=== PATIENT | female | born 1955 | race Caucasian/White ===

== ENCOUNTER 2019-12-06 10:22 | Emergency (ER) | payer MEDICARE, OTHER, SELFPAY ==
--- NOTE | ~2019-12-06 | US_ITS ---
US right upper quadrant INDICATION: Abdominal pain. PROCEDURE: Realtime right upper abdominal ultrasound. COMPARISON: CT dated 12/06/2019 FINDINGS: The pancreas is normal without focal mass or pancreatic ductal dilation. Liver echotexture is normal without focal mass or intrahepatic biliary dilatation. There is normal directional flow i n the portal vein. There is gallbladder sludge. No gallbladder wall thickening or stones. Common bile duct measures 4 m m. No sonographic Valdez's sign. IMPRESSION: 1: Gallbladder sludge. Reviewed, dictated and finalized at location A. IMPRESSION: 1: Gallbladder sludge.
--- NOTE | ~2019-12-06 | CT_ITS ---
EXAMINATION: CT abdomen pelvis wo con DATE: 12/06/2019 11:50 INDICATION: Right flank and mid abdominal pain TECHNIQUE: Computed tomography (CT) of the abdomen and pelvis was performed without intravenous contr ast. Automated exposure control and iterative reconstruction technique were employed. The dose-length product was 405.16 mGy-cm. COMPARISON: CT studies dated 12/30/2007 and 07/20/2006 FINDINGS: Mild bibasilar atelectasis. Heart size is normal. Atherosclerotic coronary artery Calcination. No per icardial or pleural effusion. Subcentimeter low-attenuation lesion in segment 7 of the liver most lik mandi a cyst or hemangioma. Gradient of increased attenuation in the dependent aspect of the otherwise normal-appearing gallbladder, most likely layering sludge or gallstones. No pericholecystic inflammat ory change to suggest acute cholecystitis. No intra or extra hepatic ductal or ductal dilation. Splee n and few small splenules, pancreas and bilateral adrenal glands are normal. There is calcified ather osclerosis of the aorta and many of the other arteries including arteries at the bilateral renal jose . Kidneys are otherwise unremarkable with no hydronephrosis. Bladder is normal. The uterus is not don ntified and has likely been surgically resected. No abnormal bowel wall thickening or obstruction. Th e appendix is not visualized. No pericecal inflammatory change to suggest acute appendicitis. No free intraperitoneal gas or fluid. No pathologically enlarged abdominal or pelvic lymphadenopathy. Mild r ight and mild to moderate left hip osteoarthritis. IMPRESSION: 1. No acute intra-abdominal/pelvic process. 2. Sludge versus gallstones in the dependent aspect of the otherwise normal gallbladder. No intra or extra hepatic ductal or ductal dilation. Reviewed, dictated and finalized at location A. IMPRESSION: 1. No acute intra-abdominal/pelvic process. 2. Sludge versus gallstones in the dependent aspect of the otherwise normal gal lbladder. No intra or extra hepatic ductal or ductal dilation.
[2019-12-06 10:34] VITALS: BP 166/51; PULSE 97; RESP 16; TEMP 36.6; O2SAT 99
[2019-12-06 10:53] LABS: Basophils Percent Auto 0.3 % (0.2-1.2); Eosinophils Absolute Auto 0.1 K/mm3 (0-0.3); Eosinophils Percent Auto 0.5 % (0-4.4); Hematocrit 43.1 % (37.0-47.0); Hemoglobin 14.4 g/dL (12.0-15.0); Immature Granulocyte Absolute 0.02 K/mm3 (0.00-0.031); Immature Granulocyte Percent A 0.2 % (0-0.5); Lymphocytes Absolute Auto 2.19 K/mm3 (0.9-3.2); Lymphocytes Percent Auto 21.3 % (18.3-44.2); Mean Corpuscular HGB Conc 33.4 g/dl (32-36); Mean Corpuscular Hemoglobin 29.6 pg (26-34); Mean Corpuscular Volume 88.5 fl (80-100); Monocytes Percent Auto 9.4 % (2.6-8.5); Neutrophils Percent Auto 68.3 % (45.5-73.1); Platelet Count Result 339 k/mm3 (150-375); Red Blood Count 4.87 M/mm3 (4.2-5.4); Red Cell Distribution Width 12.8 % (11.5-14.5); White Blood Count 10.3 K/mm3 (4.5-10.0)
[2019-12-06 10:55] LABS: Add Urine Microscopic? NO; Appearance Urine Clear (Clear); Bilirubin Urine Negative (Negative); Blood Urine Negative (Negative); Color Urine Colorless (Yellow); Glucose Urine UA Negative (Negative); Ketones Urine Negative (Negative); Leukocyte Esterase Ur Negative LEU/UL (Negative); Nitrate Urine Negative (Negative); Protein Urine Negative (Negative); Specific Grav Ur 1.005 (1.001-1.035); Urobilinogen Urine Negative mg/dL (<2.0)
[2019-12-06 11:09] LABS: Alanine Aminotransferase 35 U/L (4-35); Albumin Level 5.1 g/dL (3.5-5.1); Alkaline Phosphatase 81 U/L (38-126); Aspartate Amino Transferase 47 U/L (14-36); Bilirubin,Total 0.5 mg/dL (0.2-1.3); Blood Urea Nitrogen 12 mg/dL (7-17); Calcium 10.4 mg/dL (8.4-10.2); Carbon Dioxide 30 mmol/L (22-30); Chloride 99 mmol/L (98-107); Estimated Glomerular Filt Rate > 60; Glucose 170 mg/dL (65-105); Lipase 51 U/L (23-300); Potassium 3.8 mmol/L (3.4-5.0); Sodium 135 mmol/L (137-145)
--- NOTE | 2019-12-06 11:34 | ED.GENADULT ---
HPI - General Adult General Chief complaint: Abdominal Pain Stated complaint: right flank pain/abd bloating Time Seen by Provider: 12/06/19 10:29 History of Present Illness HPI narrative: Patient is a 64-year-old female who presents with 2 separate complaints. First complaint is right-sided abdominal pain that is bloating in nature ongoing over the last week. Intermittent. Worse when she eats. No nausea/vomiting/fever/chills. She has since developed some discomfort in her right low back. Worse with twisting and bending. No known trauma. Back pain improved with [id number] pain relievers. Related Data Home Medications Medication Instructions Recorded Confirmed Saccharomyces boulardii 250 mg 250 mg PO BID 09/18/19 capsule amlodipine 2.5 mg tablet 2.5 mg PO .unknown tablet 09/18/19 insulin pump controller #1 each 09/18/19 lisinopril 20 mg tablet 20 mg PO DAILY 09/18/19 magnesium 30 mg tablet 30 mg PO .unknown tablet 09/18/19 multivitamin 1 tablet PO .unknown tablet 09/18/19 pravastatin 10 mg tablet 10 mg PO .unknown tablet 09/18/19 Allergies Allergy/AdvReac Type Severity Reaction Status Date / Time No Known Allergies Allergy Verified 12/06/19 10:40 Review of Systems Review of Systems: All systems reviewed & are unremarkable except as noted in HPI and below Constitutional: Constitutional: Denies chills, Denies fever(s) and Denies weakness ENT: Denies nasal congestion and Denies sore throat Gastrointestinal: Gastrointestinal: Reports abdominal pain, Reports bloating, Denies constipation, Denies diarrhea, Denies nausea and Denies vomiting Genitourinary: Genitourinary: Denies hematuria, Denies nocturia and Denies dysuria Musculoskeletal: Musculoskeletal: Reports back pain and Denies muscle cramps Neurologic: Denies focal weakness and Denies numbness PMF Past Medical History Medical History (Updated 12/06/19 @ 13:39 by Jacob Brady MD) Arthritis Bleeding nose Chills Dizziness High blood pressure Left ankle pain Vertigo Surgical History Surgical History (Updated 12/06/19 @ 12:16 by Jacob Brady MD) History of appendectomy Social History Social History Smoking status: Never smoker Alcohol intake: current Exam Narrative: Exam Narrative: GENERAL: Well-appearing, well-nourished, and in no acute distress. HEAD: Normocephalic, atraumatic. ENT: Mucous membranes moist. CHEST: Clear to auscultation. No respiratory distress. HEART: Regular rate and rhythm. Normal peripheral pulses. ABDOMEN: Soft, nontender, nondistended. Back: No midline tenderness of thoracic or lumbar spine. Mild right paraspinal lumbar muscular tenderness without palpable spasm, mild right CVA tenderness. EXTREMITIES: Normal range of motion. No edema. NEURO: Alert and oriented x3. PSYCH: Normal mood and affect. Course Course Emergency Course: Patient informed of results. Suspect symptoms are related to musculoskeletal back pain but also to gallbladder sludge. Will give referral to general surgery and recommend low-fat diet. Vital Signs Vital signs: Vital Signs Temperature 97.9 F 12/06/19 10:34 Pulse Rate 97 12/06/19 10:34 Respiratory Rate 16 12/06/19 10:34 Blood Pressure 166/51 H 12/06/19 10:34 Pulse Oximetry 99 12/06/19 10:34 Temperature 97.9 F 12/06/19 10:34 Pulse Rate 84 12/06/19 12:39 Respiratory Rate 17 12/06/19 12:39 Blood Pressure 143/59 H 12/06/19 12:39 Pulse Oximetry 100 12/06/19 12:39 Medical Decision Making Vital Signs Vital Signs: Vital Signs Temperature 97.9 F 12/06/19 10:34 Pulse Rate 97 12/06/19 10:34 Respiratory Rate 16 12/06/19 10:34 Blood Pressure 166/51 H 12/06/19 10:34 Pulse Oximetry 99 12/06/19 10:34 Temperature 97.9 F 12/06/19 10:34 Pulse Rate 84 12/06/19 12:39 Respiratory Rate 17 12/06/19 12:39 Blood Pressure 143/59 H 12/06/19 12:39 Pul
[2019-12-06 12:39] VITALS: BP 143/59; PULSE 84; RESP 17; O2SAT 100
== END 2019-12-06 14:06 | disposition home or self-care (01) ==
PROVIDERS: Emergency Provider Emergency Medicine; PCP Internal Medicine
DX: K82.8 Other specified diseases of gallbladder (principal); M19.90 Unspecified osteoarthritis, unspecified site; I10 Essential (primary) hypertension; M54.5 Low back pain
CPT/HCPCS: 36415; 74176; 76705; 80053; 81003; 83690; 85025; 99284

== ENCOUNTER 2019-12-09 16:53 | Emergency (ER) | payer MEDICARE, OTHER, SELFPAY ==
--- NOTE | ~2019-12-09 | CT_ITS ---
EXAMINATION: CT abdomen pelvis w con EXAM DATE: 12/09/2019 18:29 INDICATION: Right flank pain. TECHNIQUE: Spiral CT of the abdomen and pelvis was performed following intravenous injection of 100 m L Omnipaque 350. Axial, coronal and sagittal images were reviewed. The dose-length product (DLP) fo r this examination was 398.23 mGy-cm. The exposure was tailored according to patient size (auto mA e xposure control), and iterative reconstruction (ASIR) was used as additional dose reduction technique . Comparison is made to prior examination from 12/06/2019. FINDINGS: The liver, spleen, adrenal glands and pancreas are unremarkable. Gallbladder is unremarkab le. No biliary obstruction. Portal and splenic veins are patent. Kidneys enhance symmetrically. T here is no hydronephrosis. Equivocal mild enhancement of the right ureteral urothelium, possible uppe r urinary tract infection. The uterus is not identified and has likely been surgically resected. Th e bladder is distended. There is no retroperitoneal or pelvic lymphadenopathy. Tiny umbilical fat- containing hernia. The appendix is not positively visualized. There is no pericecal inflammatory change to suggest appe ndicitis. The stomach and small bowel are unremarkable. There is expected amount of colonic stool. No free intraperitoneal gas. The heart is normal in size. There are no pericardial or pleural e ffusions. The lung bases are unremarkable. The bones are unremarkable. IMPRESSION: 1. Possible right-sided upper urinary tract infection without evidence of pyelonephritis. Correlate with urinalysis. 2. No other suspicious findings. Reviewed, dictated and finalized at location A. IMPRESSION: 1. Possible right-sided upper urinary tract infection without evidence of pyel onephritis. Correlate with urinalysis. 2. No other suspicious findings.
[2019-12-09 16:56] VITALS: BP 171/69; PULSE 105; RESP 18; TEMP 36.8; O2SAT 100
[2019-12-09 17:06] VITALS: TEMP 37
[2019-12-09 17:24] LABS: Basophils Percent Auto 0.2 % (0.2-1.2); Eosinophils Absolute Auto 0.1 K/mm3 (0-0.3); Eosinophils Percent Auto 0.4 % (0-4.4); Hematocrit 38.7 % (37.0-47.0); Hemoglobin 13.1 g/dL (12.0-15.0); Immature Granulocyte Absolute 0.06 K/mm3 (0.00-0.031); Immature Granulocyte Percent A 0.4 % (0-0.5); Lymphocytes Absolute Auto 2.29 K/mm3 (0.9-3.2); Mean Corpuscular HGB Conc 33.9 g/dl (32-36); Mean Corpuscular Hemoglobin 29.5 pg (26-34); Mean Corpuscular Volume 87.2 fl (80-100); Mean Platelet Volume 9.1 fl (7.4-10.4); Monocytes Absolute Auto 1.4 K/mm3 (0.1-0.6); Monocytes Percent Auto 9.5 % (2.6-8.5); Neutrophils Absolute Auto 10.5 K/mm3 (1.3-6.7); Neutrophils Percent Auto 73.5 % (45.5-73.1); Platelet Count Result 329 k/mm3 (150-375); Red Blood Count 4.44 M/mm3 (4.2-5.4); Red Cell Distribution Width 12.3 % (11.5-14.5); White Blood Count 14.3 K/mm3 (4.5-10.0)
[2019-12-09] MEDS: SODIUM CHLORIDE 0.9% IV 1,000 ML 999 ML IV CONT (17:26)
--- NOTE | 2019-12-09 17:31 | ED.ABDPAIN ---
HPI - Abdominal Pain General Chief Complaint: Back Pain/Injury Stated Complaint: back pain Time Seen by Provider: 12/09/19 17:05 History of Present Illness HPI narrative: Patient presents with her for right flank pain. She was seen here earlier this week and had a CAT scan and ultrasound which demonstrated sludge in the gallbladder. She has set up an appointment with Dr. Burton the general surgeon for December 20. Her PCP Dr. Tinoco said to come back to the ER, for repeat evaluation. Her pain is 8 out of 10. She denies nausea or vomiting. She has been having more frequent stools of smaller caliber. She has had chills, but no fever. She works today at the [employer]. She said she does not like pain meds and the most she would take would be in ibuprofen. I told her to stay n.p.o. until we get the results of the CAT scan, in case she needs surgery. MD elicited complaint: flank pain Pertinent past history: constipation Onset (ago): day(s) Pain Consistency: constant Location: RUQ Radiation: R flank Exacerbating factors: movement Relieving factors: rest Related Data Patient : No Home Medications Medication Instructions Recorded Confirmed Saccharomyces boulardii 250 mg 250 mg PO BID 09/18/19 capsule insulin pump controller #1 each 09/18/19 pravastatin 10 mg tablet 10 mg PO .unknown tablet 09/18/19 amlodipine 10 DAILY 12/09/19 cholecalciferol (vitamin D3) 50 mcg PO DAILY 12/09/19 [Vitamin D3] fexofenadine [Aretha Allergy] 180 mg PO DAILY 12/09/19 12/09/19 insulin aspart U-100 [Novolog 1 sliding scale dose SUBCUT 12/09/19 PenFill U-100 Insulin] USEASDIRECTD lisinopril-hydrochlorothiazide 1 tablet PO DAILY 12/09/19 magnesium oxide 400 mg PO DAILY 12/09/19 Allergies Allergy/AdvReac Type Severity Reaction Status Date / Time No Known Allergies Allergy Verified 12/09/19 17:13 Review of Systems Review of Systems: Narrative: CONSTITUTIONAL: Denies fever, chills, or sweats. EYES: Denies visual changes, redness, or discharge. ENT: Denies rhinorrhea, congestion, sore throat, or otalgia. CARDIOVASCULAR: Denies chest pain, palpitations, or edema. RESPIRATORY: Denies cough or dyspnea. GASTROINTESTINAL: Denies nausea, vomiting, or diarrhea. GENITOURINARY: Denies dysuria or hematuria. SKIN: Denies rash or itching. MUSCULOSKELETAL: Denies back pain, joint pain, or myalgia. NEUROLOGIC: Denies headache, numbness, or weakness. PSYCHIATRIC: Denies anxiety or depression. [facility] Past Medical History Medical History Arthritis Bleeding nose Chills Dizziness High blood pressure Left ankle pain Vertigo Surgical History Surgical History History of appendectomy History of X2 History of hysterectomy total 2002 History of trigger finger Family History Family History (Updated 12/07/19 @ 13:21 by Angela Maddox) Sibling Diabetes mellitus Family history of kidney disease Mother Family history of osteoporosis Family history of mental disorder Family history of cardiovascular disease Family history of coronary artery disease Family history of congestive heart failure Family history of hearing loss Father Family history of cardiovascular disease Cerebrovascular accident Family history of chronic obstructive pulmonary disease Diabetes mellitus Emphysema lung Other Hypertension Social History Social History Smoking status: Never smoker Alcohol intake: current Additional occupation/education comments: Banker Gender identity (if verbalized by the patient): Female Exam Narrative: Exam Narrative: GENERAL: Well-appearing, well-nourished, and in no acute distress. HEAD: Normocephalic, atraumatic. EYES: PERRLA and EOMI. ENT: Nares clear, no rhinorrhea or epistaxis. Mucous membranes moist. NECK: Supple. CHEST: Clear
[2019-12-09 17:35] LABS: Alanine Aminotransferase 28 U/L (4-35); Albumin Level 4.8 g/dL (3.5-5.1); Alkaline Phosphatase 86 U/L (38-126); Aspartate Amino Transferase 41 U/L (14-36); Bilirubin,Total 0.4 mg/dL (0.2-1.3); Blood Urea Nitrogen 14 mg/dL (7-17); Calcium 9.5 mg/dL (8.4-10.2); Carbon Dioxide 28 mmol/L (22-30); Chloride 95 mmol/L (98-107); Estimated CRCL calculation 83 ml/min; Estimated Glomerular Filt Rate > 60; Glucose 226 mg/dL (65-105); Lipase 62 U/L (23-300); Potassium 3.8 mmol/L (3.4-5.0); Sodium 131 mmol/L (137-145)
[2019-12-09 17:36] LABS: Add Urine Microscopic? YES; Appearance Urine Clear (Clear); Bilirubin Urine Negative (Negative); Blood Urine Negative (Negative); Color Urine Colorless (Yellow); Glucose Urine UA 2+ mg/dL (Negative); Ketones Urine Negative (Negative); Leukocyte Esterase Ur Negative LEU/UL (Negative); Nitrate Urine Negative (Negative); Protein Urine Negative (Negative); RBC Urine 0-2 /hpf (0-2); Specific Grav Ur 1.005 (1.001-1.035); Urobilinogen Urine Negative mg/dL (<2.0); WBC Urine 0-3 /hpf
[2019-12-09 19:43] VITALS: BP 130/85; PULSE 80; RESP 19; TEMP 37.2; O2SAT 100
== END 2019-12-09 19:44 | disposition home or self-care (01) ==
PROVIDERS: Emergency Provider Emergency Medicine; PCP Internal Medicine
DX: R10.11 Right upper quadrant pain (principal); E87.0 Hyperosmolality and hypernatremia; R73.9 Hyperglycemia, unspecified; M19.90 Unspecified osteoarthritis, unspecified site; I10 Essential (primary) hypertension; Z79.4 Long term (current) use of insulin
CPT/HCPCS: 36415; 74177; 80053; 81001; 83690; 85025; 96361; 96374; 99284; J0131; J7030; Q9967

== ENCOUNTER 2019-12-28 08:43 | Outpatient (CLI) | payer MEDICARE, OTHER, SELFPAY ==
--- NOTE | ~2019-12-28 | NM_ITS ---
EXAMINATION: NM hepatobiliary w pharm DATE: 12/28/2019 10:44 INDICATION: Abnormal findings on diagnostic imaging of liver and bile ducts. COMPARISON: Ultrasound 12/06/2019 TECHNIQUE: 5 mCi Tc-99m mebrofenin (Choletec) was administered intravenously. Scintigraphic images o f the abdomen were obtained for one hour. Then, 1.4 mcg sincalide (Kinevac) IV was administered, and imaging was continued for 30 minutes. FINDINGS: There is normal clearance of radiotracer from the blood pool. There is homogeneous tracer u ptake by the liver. Activity progresses to the bowel and gallbladder. Gallbladder ejection fraction (GBEF) was <10%. Note that most patients with gallbladder dysfunction have GBEF < 35%, which overlaps with the broad normal range of 10-90%. IMPRESSION: 1. Low gallbladder ejection fraction, consistent with gallbladder dysfunction and/or chronic cholecy stitis. Reviewed, dictated and finalized at location A. IMPRESSION: 1. Low gallbladder ejection fraction, consistent with gallbladder dysfunction and/or chronic cholecystitis.
== END 2019-12-28 08:44 | disposition home or self-care (01) ==
PROVIDERS: PCP Internal Medicine; Visit Provider Surgery
DX: M54.9 Dorsalgia, unspecified (principal); R14.0 Abdominal distension (gaseous); R93.2 Abnormal findings on diagnostic imaging of liver and biliary tract
CPT/HCPCS: 78227; A9537; J2805

== ENCOUNTER 2020-01-29 00:03 | Outpatient (CLI) | payer MEDICARE, OTHER, SELFPAY ==
[2020-01-29 18:54] LABS: SARS-CoV-2 RNA PCR Negative
== END 2020-01-29 00:04 | disposition home or self-care (01) ==
LOC: ANHCOVIDDT 00:03
PROVIDERS: PCP Internal Medicine; Visit Provider Surgery
DX: Z01.812 Encounter for preprocedural laboratory examination (principal); Z11.59 Encounter for screening for other viral diseases
CPT/HCPCS: 87635; C9803; U0003

== ENCOUNTER 2020-01-29 10:47 | Outpatient (CLI) | payer MEDICARE, OTHER, SELFPAY ==
--- NOTE | 2020-01-29 10:50 | ECG_ITS ---
Measurements Intervals [place] Rate: 63 P: 62 [place]: 166 QRS: 57 QRSD: 81 T: 60 QT: 378 QTc: 387 Interpretive Statements SINUS RHYTHM DELAYED PRECORDIAL R/S TRANSITION BASELINE ARTIFACT- I, II, III, AVR, AVL, AVF BORDERLINE ECG Electronically Signed On 01-29-2020 11:21:32 CDT by Jose Coulter D.O.
[2020-01-29 12:00] LABS: Blood Urea Nitrogen 16 mg/dL (7-17); Calcium 9.6 mg/dL (8.4-10.2); Carbon Dioxide 28 mmol/L (22-30); Chloride 99 mmol/L (98-107); Estimated Glomerular Filt Rate > 60; Glucose 105 mg/dL (65-105); Potassium 3.6 mmol/L (3.4-5.0); Sodium 134 mmol/L (137-145)
[2020-01-29 12:02] LABS: Alanine Aminotransferase 21 U/L (4-35); Albumin Level 4.8 g/dL (3.5-5.1); Alkaline Phosphatase 76 U/L (38-126); Amylase 87 U/L (30-110); Aspartate Amino Transferase 37 U/L (14-36); Bilirubin,Total 0.3 mg/dL (0.2-1.3); Lipase 48 U/L (23-300)
== END 2020-01-29 10:48 | disposition home or self-care (01) ==
PROVIDERS: Anesthesiology; PCP Internal Medicine; Visit Provider Surgery
DX: Z01.818 Encounter for other preprocedural examination (principal); K81.1 Chronic cholecystitis; E10.9 Type 1 diabetes mellitus without complications; I10 Essential (primary) hypertension
CPT/HCPCS: 36415; 80048; 80076; 82150; 83690; 86850; 86900; 86901; 87635; 93005; C9803; U0003

== ENCOUNTER 2020-01-31 02:04 | Day surgery (SDC) | payer MEDICARE, OTHER, SELFPAY ==
[2020-01-25 12:37] VITALS: BMI 26.1
--- NOTE | 2020-01-30 14:06 | WPDANESEPPF ---
Anes - Initial Pre Proc Eval Procedure: Operation Date: 01/31/20 10:30 Proposed Procedures p Laparoscopic Cholecystectomy - Trey Burton MD Date/Time: 01/30/20 14:06 Surgeon: Trey Burton MD Pre Op Diagnosis: Chronic cholecystitis Patient Data Age: 64 Gender: F Height: 1.59 m Weight: 65.77 kg Allergies Allergy/AdvReac Type Severity Reaction Status Date / Time No Known Allergies Allergy Verified 01/25/20 12:13 Home Medications Medication Instructions Recorded Confirmed Type Saccharomyces boulardii 250 mg 250 mg PO DAILY 09/18/19 01/25/20 History capsule insulin pump controller #1 each 09/18/19 01/01/20 History pravastatin 10 mg tablet 10 mg PO DAILY tablet 09/18/19 01/25/20 History amlodipine 10 mg PO DAILY 12/09/19 01/25/20 History cholecalciferol (vitamin D3) 50 mcg PO DAILY 12/09/19 01/25/20 History [Vitamin D3] fexofenadine [Aretha Allergy] 180 mg PO DAILY 12/09/19 01/25/20 History insulin aspart U-100 [Novolog 1 sliding scale dose SUBCUT 12/09/19 01/25/20 History PenFill U-100 Insulin] USEASDIRECTD lisinopril-hydrochlorothiazide 1 tablet PO DAILY 12/09/19 01/25/20 History magnesium oxide 400 mg PO DAILY 12/09/19 01/25/20 History orphenadrine citrate 100 mg PO Q12H #10 tablet 12/09/19 01/25/20 Rx insulin pump controller 01/25/20 01/25/20 History hydrocodone-acetaminophen 1 - 2 tablet PO Q6H PRN #7 tablet 01/31/20 Rx ibuprofen 600 mg PO Q6H PRN #14 tablet 01/31/20 Rx ECG: Date of Service: 01/29/20 Procedure(s): CA 12 lead EKG Accession Number(s): [id number] cc: ~ Measurements Intervals [place] Rate: 63 P: 62 [place]: 166 QRS: 57 QRSD: 81 T: 60 QT: 378 QTc: 387 Interpretive Statements SINUS RHYTHM DELAYED PRECORDIAL R/S TRANSITION BASELINE ARTIFACT- I, II, III, AVR, AVL, AVF BORDERLINE ECG Electronically Signed On 01-29-2020 11:21:32 CDT by Jose Coulter D.O. Dictated By: Jose Coulter DO 01/29/20 1128 Patient hx anesthesia problems: none Family hx anesthesia problems: none [facility] Past Medical History Medical History (Updated 01/30/20 @ 14:07 by Ricky Fermin MD) Arthritis Back pain Bleeding nose Chills Dizziness DM type 1 (diabetes mellitus, type 1) High blood pressure Hypercholesterolemia Left ankle pain Vertigo Surgical History Surgical History History of appendectomy History of X2 History of hysterectomy total 2002 History of trigger finger Social History Social History Smoking status: Never smoker Alcohol intake: current Additional occupation/education comments: Banker Gender identity (if verbalized by the patient): Female Anes - Eval Final PreProcedure Day of Procedure 01/30/20 14:06 Patient weight: overweight Heart: regular rate and rhythm Lungs: clear to auscultation and normal air movement Airway: Mallampati scale class II Neurological: alert and oriented Last oral intake: >/= 8 hours ASA classification: III Emergent: no Anesthetic plan: proceed Anesthesia type and monitoring: general ETT Informed Consent: The patient's anesthetic plan and its attendant risks and benefits were discussed with the patient/family/POA. Questions were solicited and answers provided to the satisfaction of the patient/family/POA.
[2020-01-31] VITALS (9 sets, daily range): BP systolic 120–149; BP diastolic 48–66; PULSE 61–87; RESP 12–16; TEMP 36.6; O2SAT 95–98
--- NOTE | 2020-01-31 08:31 | WPDHPUPDATE1 ---
History and Physical Update Update Date/Time: 01/31/20 08:31 History and Physical has been reviewed, including an updated exam of the patient. There are NO changes in the patient's condition. Risks, benefits, and alternatives have been discussed and questions answered. Patient agrees to proceed with procedure.
--- NOTE | 2020-01-31 08:57 | P.OP_ITS ---
Procedure Note - Detailed Date of procedure: 01/31/20 Pre-op diagnosis: Chronic cholecystitis Chronic cholecystitis Post-op diagnosis: same Procedure performed: Laparoscopic cholecystectomy Description of procedure: The patient was taken to surgery and induced into general anesthesia. The abdomen was prepped and draped. Trocars were placed in the usual fashion using 0.5% Marcaine with epinephrine and applied Medical optical trocars. A 5 millimeter camera was used. The gallbladder was decompressed with a laparoscopic aspirator. The cholecystotomy was closed with a Vicryl endo-loop. The gallbladder was retracted anterosuperiorly. Traction was placed on the infundibulum. The cystic duct and cystic artery were dissected out very clearly. The gallbladder was dissected off the liver at its lower 3rd. Critical view was achieved. We securely clipped and divided the cystic duct and cystic artery. The gallbladder was then further retracted so that the peritoneal attachments to the liver could be divided. Once the gallbladder was freed entirely, it was placed in an Endo-Catch bag and retrieved through the 10 11 epigastric trocar site. The epigastric trocar was then replaced. We reviewed the right upper quadrant. It was irrigated and suctioned. All looked good with no evidence of bleeding or bile leakage. We evacuated CO2 and removed the trocar sleeves. Skin wounds were closed with subcuticular 4 O Monocryl skin suture. The wounds were dressed with Exofin surgical adhesive. Patient was awakened and taken to recovery in good condition. Sponge and needle counts were correct x2. Anesthesia: GETA and local (0.5% Marcaine with epinephrine) Surgeon: Trey Burton MD Civil Drafting Technician: Itzel COREA Estimated blood loss (mL): 5 Drains: No Packing: No Pathology: yes (Gallbladder) Complications: None Condition: stable Disposition: PACU Findings: Chronic inflammation, no gallstones noted. No biliary ductal dilatation, no liver abnormalities.
[2020-01-31] MEDS: LACTATED RINGERS 1,000 ML 30 ML IV CONT ×2 (09:30→11:24)
[2020-01-31 09:36] LABS: Glucose Point of Care 164 (65-105)
[2020-01-31] MEDS: ceFAZolin 2 GM/D5W 50 ML 2 GM/50 ML BAG IVPB (10:27)
[2020-01-31] MEDS: BUPIVACAINE/EPINEPHRINE 0.5% 30 ML VIAL INFILTRATE (10:50)
[2020-01-31 11:37] LABS: Glucose Point of Care 154 (65-105)
== END 2020-01-31 13:51 | disposition home or self-care (01) ==
PROVIDERS: PCP Internal Medicine; Visit Provider Surgery
PROC: 0FT44ZZ Resection of Gallbladder, Percutaneous Endoscopic Approach (ICD-10-PCS; CPT 47562; principal; 2020-01-31 10:30)
DX: K81.1 Chronic cholecystitis (principal); E10.9 Type 1 diabetes mellitus without complications; I10 Essential (primary) hypertension; E78.00 Pure hypercholesterolemia, unspecified; M19.90 Unspecified osteoarthritis, unspecified site; Z79.4 Long term (current) use of insulin; Z96.41 Presence of insulin pump (external) (internal)
CPT/HCPCS: 47562; 88304; C1713; J0131; J0330; J0690; J1100; J1170; J2250; J2405; J2704; J2710; J3010; J7120

== ENCOUNTER 2020-11-11 09:32 | Outpatient (CLI) | payer MEDICARE, OTHER, SELFPAY | END 2020-11-11 09:33 | disposition home or self-care (01) | LOC: ANHCOVIDVC 09:32 | PROVIDERS: PCP Internal Medicine | DX: Z23 Encounter for immunization (principal) | CPT/HCPCS: 0001A; 91300 ==

== ENCOUNTER 2020-12-02 09:37 | Outpatient (CLI) | payer MEDICARE, OTHER, SELFPAY | END 2020-12-02 09:38 | disposition home or self-care (01) | LOC: ANHCOVIDVC 09:37 | PROVIDERS: PCP Internal Medicine | DX: Z23 Encounter for immunization (principal) | CPT/HCPCS: 0002A; 91300 ==

== ENCOUNTER 2020-12-04 11:34 | Outpatient (CLI) | payer MEDICARE, OTHER, SELFPAY ==
--- NOTE | ~2020-12-04 | XR_ITS ---
EXAMINATION: XR hand LT min 3V, XR wrist RT min 3V, XR wrist LT min 3V, XR hand RT min 3V DATE: 12/04/2020 12:02 INDICATION: Bilateral hand pain and swelling TECHNIQUE: 1. Posteroanterior, ulnar deviation, oblique, and lateral views of the left wrist were obtained. 2. Dorsal palmar, oblique and lateral views of the left hand were obtained. 3. Posteroanterior, ulnar deviation, oblique, and lateral views of the right wrist were obtained. 4. Dorsal palmar, oblique and lateral views of the right hand were obtained. COMPARISON: None. FINDINGS: 1.5 mm ulnar positive variance with mild cystic change at the ulnar side of the proximal articular jones rface of the lunate consistent with ulnocarpal impaction.. Alignment is otherwise normal. Bilateral h ands and wrists. No fracture. Polyarticular osteoarthritis, moderate severity at the bilateral first carpal metacarpal joints and mild at the left wrist, bilateral triscaphe joints and minimal to mild a t multiple bilateral metacarpophalangeal and interphalangeal joints. Likely associated subarticular c ystic change at the base of the bilateral first metacarpals. There is soft tissue swelling surroundin g several dystrophic soft tissue calcification near the ulnar styloid processes potentially along the course of the extensor carpi ulnaris tendons. Scattered vascular calcific a cyst along the bilateral radial and ulnar arteries. IMPRESSION: 1. 1.5 mm left ulnar positive variance with cystic change at the ulnar side of the lunate consistent with ulnocarpal impaction. 2. Relatively symmetric pattern of polyarticular osteoarthritis at the bilateral hands and wrists, mo derate severity at the bilateral first carpometacarpal joints and otherwise minimal to mild . 3. Soft tissue swelling and subtle dystrophic calcification soft tissues near the extensor carpi ulna ris groove and ulnar styloid process on both the left and right with location suggesting possibility of acute calcific tendinitis of the extensor carpi ulnaris tendons. Reviewed, dictated and finalized at location A. IMPRESSION: 1. 1.5 mm left ulnar positive variance with cystic change at the ulnar side of the lunate consistent with ulnocarpal impaction. 2. Relatively symmetric pattern of polyarticular osteoarthritis at the bilatera l hands and wrists, moderate severity at the bilateral first carpometacarpal autumn ints and otherwise minimal to mild . 3. Soft tissue swelling and subtle dystrophic calcification soft tissues near t he extensor carpi ulnaris groove and ulnar styloid process on both the left and right with location suggesting possibility of acute calcific tendinitis of the extensor carpi ulnaris tendons. IMPRESSION: 1. 1.5 mm left ulnar positive variance with cystic change at the ulnar side of the lunate consistent with ulnocarpal impaction. 2. Relatively symmetric pattern of polyarticular osteoarthritis at the bilatera l hands and wrists, moderate severity at the bilateral first carpometacarpal autumn ints and otherwise minimal to mild . 3. Soft tissue swelling and subtle dystrophic calcification soft tissues near t he extensor carpi ulnaris groove and ulnar styloid process on both the left and right with location suggesting possibility of acute calcific tendinitis of the extensor carpi ulnaris tendons.
== END 2020-12-04 11:35 | disposition home or self-care (01) ==
LOC: ANHIMG 11:40
PROVIDERS: PCP Internal Medicine; Visit Provider Plastic Surgery
DX: M19.042 Primary osteoarthritis, left hand (principal); M19.032 Primary osteoarthritis, left wrist; R60.0 Localized edema; M79.89 Other specified soft tissue disorders; M19.041 Primary osteoarthritis, right hand; M18.0 Bilateral primary osteoarthritis of first carpometacarpal joints; M19.031 Primary osteoarthritis, right wrist
CPT/HCPCS: 73110; 73130

== ENCOUNTER → 2021-01-20 00:42 | Outpatient (CLI) | payer MEDICARE, OTHER, SELFPAY | PROVIDERS: PCP Internal Medicine; Visit Provider Internal Medicine Critical Care Medicine | DX: Z01.812 Encounter for preprocedural laboratory examination (principal); Z20.822 Contact with and (suspected) exposure to COVID-19 | CPT/HCPCS: C9803; U0003; U0005 ==

== ENCOUNTER 2021-01-23 08:37 | Outpatient (CLI) | payer MEDICARE, OTHER, SELFPAY ==
--- NOTE | 2021-02-17 07:52 | WPDSLEEPSTUD ---
Sleep Study Date of Study: 01/23/21 Ordering Provider: Ludin Aguiar, Interpreting Physician: Kylah Pantoja MD Sleep Study Type: Polysomnogram Height: 1.6 m Weight: 65.771 kg Body Mass Index: 25.7 Neck Circumference (inches): 14 [facility]: 12 Reason for Sleep Study Loud snoring, nonrestorative sleep Sleep History Pauline Young is a 65 year old female with constant loud snoring reported to her by her . He also told her that she stops breathing at night. She is always tired around 2:00 p.m.. She often wishes she could taping take a nap. She sleeps soundly. She is often in bed before 10:00 p.m. and sleeps until 8:00 a.m. however she does have to wake to urinate around 5 in the morning. She has problems with frequent sinusitis. She wakes up with a dry mouth. Her tongue has blocked her airway during sleep, causing her to wake up trying to clear her throat. She occasionally awakens from sleep feeling short of breath and occasionally awakens at night with heartburn belching and coughing. She frequently has trouble sleeping with a cold. She rarely gasps for breath at night. She rarely sweats excessively at night. She rarely notices her heart pounding or beating irregularly at night. She rarely falls asleep during the day. She does not fall asleep involuntarily or while driving. She does not have loss of muscle tone with strong emotion. She does not have daytime difficulties due to excessive sleepiness. She does not feel paralyzed on waking or falling asleep. She occasionally has vivid dreamlike scenes upon awakening or falling asleep. She does not feel afraid to go to sleep. She rarely has nightmares. She occasionally remembers her dreams. She rarely has racing thoughts. She occasionally feels sad or depressed. She rarely feels anxious. She frequently has muscular tension. She does not notice parts of her body jerking but she does have muscle cramps at night. She does not kick at night. She rarely has crawling and aching feelings in her legs or any other kind of leg pain at night. She does not have morning jaw pain and does not grind her teeth during sleep. She rarely is bothered by pain during the day and rarely awakened by pain at night. She occasionally wakes up feeling stiff in the morning with sore achy muscles and pain in the neck and spine. She has headaches, palpitations, memory problems which started a year ago and fatigue. Normal bedtime is 10:00 p.m. taking less than a minute to fall asleep. She wakes up once at night around 5 in the morning to blower nose and to urinate. She is back to sleep and gets up for the day at 8:00 a.m.. Her weekend schedule is the same. She estimates getting 8 to 10 hours of sleep at night yet never feels rested She sometimes takes a nap in the afternoon. A short nap may be refreshing. She feels better in the morning compared other times of day. She is drowsy in the morning for 1 hour after waking. Habits: Never smoked tobacco. Caffeine 3 cups a day. Alcohol: red wine, once per week at most. [facility] Past Medical History Medical History Arthritis Back pain Bleeding nose Chills Dizziness DM type 1 (diabetes mellitus, type 1) High blood pressure Hypercholesterolemia Left ankle pain Left knee DJD Right knee DJD Vertigo Surgical History Surgical History History of appendectomy History of X2 History of hysterectomy total 2002 History of trigger finger Family History Family History Sibling Diabetes mellitus Family history of kidney disease Mother Family history of osteoporosis Family history of mental disorder Family history of cardiovascular disease Family history of coronary artery disease Family history of congestive heart failure Family history of hearing loss Fat
[2021-02-17 08:08] VITALS: BMI 25.7
== END 2021-01-24 07:15 | disposition home or self-care (01) ==
LOC: ANHCSM 08:39
PROVIDERS: PCP Internal Medicine; Visit Provider Internal Medicine
DX: G47.33 Obstructive sleep apnea (adult) (pediatric) (principal)
CPT/HCPCS: 95810

== ENCOUNTER → 2021-04-02 11:26 | Outpatient (CLI) | payer MEDICARE, OTHER, SELFPAY ==
--- NOTE | ~2021-04-02 | MM_ITS ---
EXAMINATION: MM screening jennifer BI w cachorro HISTORY: Screening TECHNIQUE: Craniocaudal and mediolateral oblique 3-D tomosynthesis images were obtained and synthetic 2-D images were generated. CAD analysis was submitted and interpreted. COMPARISON: No prior mammogram is available for comparison at this institution. BREAST PARENCHYMAL COMPOSITION: There are scattered areas of fibroglandular density. FINDINGS: There is no evidence of suspicious mass, calcification, or architectural distortion to sugg est malignancy in either breast. There has been no suspicious interval change. IMPRESSION: 1. No mammographic evidence of malignancy. 2. Recommend routine screening mammography in one year. BI-RADS Category 1: Negative Reviewed, dictated and finalized at location A.
== END ==
PROVIDERS: PCP Internal Medicine; Visit Provider Obstetrics & Gynecology
DX: Z12.31 Encounter for screening mammogram for malignant neoplasm of breast (principal)
CPT/HCPCS: 77063; 77067

== ENCOUNTER → 2021-04-23 11:11 | Outpatient (CLI) | payer MEDICARE, OTHER, SELFPAY ==
--- NOTE | ~2021-04-23 | DEXA_ITS ---
Bone Density Report Name: Pauline Young Age: 65 Sex: Female Ethnicity: White Date of : 1955 Indication: postmenopausal; screening for osteoporosis; height loss; hysterectomy; Referring Provider: IFEOMA, LISA Pro Study: Bone densitometry was performed. Exam Date: April 23, 2021 Accession number: [id number] Bone Density: Region BMD T-score Z-score Classification AP Spine (L1-L4) 0.883 -1.5 0.4 Osteopenia Femoral Neck (Left) 0.626 -2.0 -0.4 Osteopenia Total Hip (Left) 0.746 -1.6 -0.3 Osteopenia Femoral Neck (Right) 0.595 -2.3 -0.7 Osteopenia Total Hip (Right) 0.718 -1.8 -0.5 Osteopenia Total Hip Mean 0.732 -1.7 -0.4 Osteopenia World Health Organization criteria for BMD impression classify patients as: Normal (T-score at or above -1.0), Osteopenia (T-score between -1.0 and -2.5), or Osteoporosis (T-score at or below -2.5). 10-year Fracture Risk(1): Major Osteoporotic Fracture 12% Hip Fracture 2.2% Reported Risk Factors: [place] (), Neck BMD=0.595, BMI=28.0 (1) FRAX(R) Version 3.08. Fracture probability calculated for an untreated patient. Fracture probability may be lower if the patient has received treatment. Clinical Information Provided by Patient: Has used the following medications: Vitamin D, MICHELE Has the following medical conditions: Hysterectomy Patient maximum height was 63.0 Menopause Age: 47 No regular weight bearing exercise Drinks caffeinated beverages Onset of menses at age 11 Number of children 2 Impression: The patient has low bone mass, based on the Right Femoral Neck T-score. The patient has an estimated ten-year risk of hip fracture of 2.2% and an estimated ten-year risk of major fracture of 12%, based on the WHO FRAX algorithm. Discussion: BONE DENSITY IS LOW AT ONE OR MORE SKELETAL SITES. This patient's lowest T-score is low at one or more skeletal sites. It meets the World Health Organization's (WHO) criteria for ?low bone mass? (T-score between -1.0 and -2.5). The patient's 10-year risk of fracture as calculated by FRAX is less than the threshold where pharmacological therapy is recommended by the National Osteoporosis Foundation (NOF). However, all treatment decisions require clinical judgment and consideration of individual patient factors, including patient preferences, comorbidities, previous drug use, risk factors not captured in the FRAX model (e.g., frailty, falls, vitamin D deficiency, increased bone turnover, interval significant decline in bone density) and possible under or overestimation of fracture risk by FRAX. The patient should follow a healthful lifestyle (good nutrition with adequate calcium and vitamin D, and appropriate weight-bearing exercise). Follow-Up: Consider repeating this study in 2 to 3 years to reassess this patient's
== END ==
PROVIDERS: PCP Internal Medicine; Visit Provider Internal Medicine
DX: Z78.0 Asymptomatic menopausal state (principal); M85.89 Other specified disorders of bone density and structure, multiple sites
CPT/HCPCS: 77080

== ENCOUNTER 2021-05-21 07:38 | Outpatient (CLI) | payer MEDICARE, OTHER, SELFPAY ==
--- NOTE | 2021-06-09 11:54 | WPDSLEEPSTUD ---
Sleep Study Date of Study: 05/21/21 Ordering Provider: Stephan Hamilton MD Interpreting Physician: Kylah Pantoja MD Sleep Study Type: CPAP Titration Height: 1.56 m Weight: 68.039 kg Body Mass Index: 27.8 Neck Circumference (inches): 14 [place]: 12 Reason for Sleep Study * Basic nocturnal polysomnogram January 23, 2021 with mild obstructive sleep apnea; AHI of 8.8, severe in supine REM with an AHI of 64.3, desaturation 85% with loud snoring. There is a positional component, worse in the supine position, supine AHI 15.7 compared to nonsupine position 1.8. The patient had 53 minutes spent below 88% which was 10.5% of the study. With central apneas and prolonged hypoxemia, and hyperetnsion as a medical co-morbidity, she presents for CPAP titration. Sleep History Pauline Young is a 65 year old female with constant loud snoring reported to her by her . He also told her that she stops breathing at night. She is always tired around 2:00 p.m.. She often wishes she could take a nap. She sleeps soundly. She is often in bed before 10:00 p.m. and sleeps until 8:00 a.m. however she does have to wake to urinate around 5:00a.m. She has problems with frequent sinusitis. She wakes up with a dry mouth. Her tongue has blocked her airway during sleep, causing her to wake up trying to clear her throat. She occasionally awakens from sleep feeling short of breath and occasionally awakens at night with heartburn belching and coughing. She frequently has trouble sleeping with a cold. She rarely gasps for breath at night. She rarely sweats excessively at night. She rarely notices her heart pounding or beating irregularly at night. She rarely falls asleep during the day. She does not fall asleep involuntarily or while driving. She does not have loss of muscle tone with strong emotion. She does not have daytime difficulties due to excessive sleepiness. She does not feel paralyzed on waking or falling asleep. She occasionally has vivid dreamlike scenes upon awakening or falling asleep. She does not feel afraid to go to sleep. She rarely has nightmares. She occasionally remembers her dreams. She rarely has racing thoughts. She occasionally feels sad or depressed. She rarely feels anxious. She frequently has muscular tension. She does not notice parts of her body jerking but she does have muscle cramps at night. She does not kick at night. She rarely has crawling and aching feelings in her legs or any other kind of leg pain at night. She does not have morning jaw pain and does not grind her teeth during sleep. She rarely is bothered by pain during the day and rarely awakened by pain at night. She occasionally wakes up feeling stiff in the morning with sore achy muscles and pain in the neck and spine. She has headaches, palpitations, memory problems which started a year ago and fatigue. Normal bedtime is 10:00 p.m. taking less than a minute to fall asleep. She wakes up once at night around 5:00 a.m. to blow her nose and to urinate. She is back to sleep, wakes for the day at 8:00 a.m.. Her weekend schedule is the same. She estimates getting 8 to 10 hours of sleep at night yet never feels rested. She sometimes takes a nap in the afternoon. A short nap may be refreshing. She feels better in the morning compared other times of day. She is drowsy in the morning for 1 hour after waking. Habits: Never smoked tobacco. Caffeine 3 cups a day. Alcohol: red wine, once per week at most. [facility] Past Medical History Medical History Arthritis Back pain Bleeding nose Chills Dizziness DM type 1 (diabetes mellitus, type 1) High blood pressure Hypercholesterolemia Left ankle pain Left knee DJD Right knee DJD Vertigo Surgical History Surgical History History of appendectomy History of X2 History of hysterectomy total 2002 Histor
[2021-06-09 12:23] VITALS: BMI 27.8
== END 2021-05-22 07:19 | disposition home or self-care (01) ==
LOC: ANHCSM 07:39
PROVIDERS: PCP Internal Medicine; Visit Provider Internal Medicine
DX: G47.33 Obstructive sleep apnea (adult) (pediatric) (principal); Z68.27 Body mass index [BMI] 27.0-27.9, adult
CPT/HCPCS: 95811

== ENCOUNTER 2021-07-02 01:05 | Day surgery (SDC) | payer MEDICARE, OTHER, SELFPAY ==
[2021-06-13 13:49] VITALS: BMI 28.3
--- NOTE | 2021-07-02 07:33 | WPDANESEPPF ---
Anes - Initial Pre Proc Eval Procedure: Operation Date: 07/02/21 10:45 Proposed Procedures p Screening Colonoscopy - Chirag Bassett MD Date/Time: 07/02/21 07:33 Surgeon: Chirag Bassett MD Pre Op Diagnosis: neoplasm screening Patient Data Age: 65 Gender: F Height: 1.55 m Weight: 68 kg Allergies Allergy/AdvReac Type Severity Reaction Status Date / Time mold Allergy Unknown unk Verified 07/02/21 09:42 cat dander Allergy Other Verified 07/02/21 09:42 grass pollen Allergy Other Verified 07/02/21 09:42 weed pollen Allergy Other Verified 07/02/21 09:42 dust Allergy Other Uncoded 07/02/21 09:42 Home Medications Medication Instructions Recorded Confirmed Type amlodipine 10 mg PO DAILY 12/09/19 06/13/21 History cholecalciferol (vitamin D3) 50 mcg PO DAILY 12/09/19 06/13/21 History [Vitamin D3] atorvastatin 40 mg tablet 40 mg PO DAILY 04/29/21 06/13/21 History diclofenac sodium 1 % topical gel 2 g TOPICAL QID PRN 04/29/21 06/13/21 History flash glucose sensor 04/29/21 06/09/21 History insulin pump controller 04/29/21 06/09/21 History ipratropium bromide 21 mcg (0.03 2 spray INTRANASAL BID 04/29/21 06/13/21 History %) nasal spray levocetirizine 5 mg tablet 5 mg PO DAILY 04/29/21 06/13/21 History multivitamin 1 tablet PO DAILY 04/29/21 06/13/21 History insulin aspart U-100 [Novolog sliding scale dose SUBCUT TID 06/13/21 History Flexpen U-100 Insulin] insulin degludec [Tresiba 20 unit SUBCUT DAILY 06/13/21 06/13/21 History FlexTouch U-100] lisinopril-hydrochlorothiazide 1 tablet PO DAILY 06/13/21 06/13/21 History Patient hx anesthesia problems: none Family hx anesthesia problems: none Results Review: All pre-operative results and documents have been reviewed as part of the pre-operative evaluation. [facility] Past Medical History Medical History Arthritis Back pain Bleeding nose Chills Dizziness DM type 1 (diabetes mellitus, type 1) High blood pressure Hypercholesterolemia Left ankle pain Left knee DJD Right knee DJD Vertigo Surgical History Surgical History History of appendectomy History of X2 History of hysterectomy total 2002 History of trigger finger Family History Family History Sibling Diabetes mellitus Family history of kidney disease Mother Family history of osteoporosis Family history of mental disorder Family history of cardiovascular disease Family history of coronary artery disease Family history of congestive heart failure Family history of hearing loss Father Family history of cardiovascular disease Cerebrovascular accident Family history of chronic obstructive pulmonary disease Diabetes mellitus Emphysema lung Other Hypertension Social History Social History Second hand tobacco smoke exposure: Yes Alcohol intake: current Drinks per week: 1 Substance use: never Substance use type: does not use Living arrangements: with family Additional occupation/education comments: Banker Gender identity (if verbalized by the patient): Female Spiritual care concerns: No Anes - Eval Final PreProcedure Day of Procedure 07/02/21 07:33 Patient weight: overweight Heart: regular rate and rhythm Lungs: clear to auscultation and normal air movement Airway: Mallampati scale class II Neurological: alert and oriented Last oral intake: >/= 8 hours ASA classification: III Emergent: no Anesthetic plan: proceed Anesthesia type and monitoring: general GIVS and standard monitoring Results Review: All pre-operative results and documents have been reviewed as part of the pre-operative evaluation. Informed Consent: The patient's anesthetic plan and its attendant risks and benefits were discussed with the patient/fam
[2021-07-02 09:43] VITALS: BP 138/47; PULSE 80; RESP 18; TEMP 36.8; O2SAT 100
[2021-07-02] MEDS: LACTATED RINGERS 1,000 ML 150 ML IV CONT (09:55)
--- NOTE | 2021-07-02 09:56 | PM.HPGS ---
History of Present Illness History of Present Illness Consent: Risks, benefits, and alternatives have been discussed and questions answered. Patient agrees to proceed with procedure. Chief complaint: neoplasm screening Narrative: Pauline Young is a 65 year old female here for screening colonoscopy, last one 10 years ago. Review of Systems Constitutional: Constitutional: Denies headache(s) and Denies weakness Eyes: Eyes: Denies blurry vision ENT: Reports Normal hearing present, Denies headache(s) and Denies neck pain Cardiovascular: Cardiovascular: Denies chest pain and Denies dyspnea Respiratory: Respiratory: Denies dyspnea Gastrointestinal: Gastrointestinal: Reports no additional gastrointestinal complaints Genitourinary: Genitourinary: Denies dysuria Musculoskeletal: Musculoskeletal: Denies neck pain Integumentary/Breasts: Skin/Breast: Denies dry skin Neurologic: Reports Normal hearing present, Denies headache(s) and Denies weakness Psychiatric: Psychiatric: Denies anxiety Endocrine: Endocrine: Denies change in body appearance Hematologic/Lymphatic: Hematologic/Lymphatic: Denies easy bleeding Allergic/Immunologic: Allergic/Immunologic: Denies urticaria PMFSH Past Medical History Medical History Arthritis Back pain Bleeding nose Chills Dizziness DM type 1 (diabetes mellitus, type 1) High blood pressure Hypercholesterolemia Left ankle pain Left knee DJD Right knee DJD Vertigo Surgical History Surgical History History of appendectomy History of X2 History of hysterectomy total 2003 History of trigger finger Family History Family History Sibling Diabetes mellitus Family history of kidney disease Mother Family history of osteoporosis Family history of mental disorder Family history of cardiovascular disease Family history of coronary artery disease Family history of congestive heart failure Family history of hearing loss Father Family history of cardiovascular disease Cerebrovascular accident Family history of chronic obstructive pulmonary disease Diabetes mellitus Emphysema lung Other Hypertension Social History Social History Second hand tobacco smoke exposure: Yes Alcohol intake: current Drinks per week: 1 Substance use: never Substance use type: does not use Living arrangements: with family Additional occupation/education comments: Banker Gender identity (if verbalized by the patient): Female Spiritual care concerns: No Meds Home Medications and Allergies Home Medications Medication Instructions Recorded Confirmed Type amlodipine 10 mg PO DAILY 12/09/19 06/13/21 History cholecalciferol (vitamin D3) 50 mcg PO DAILY 12/09/19 06/13/21 History [Vitamin D3] atorvastatin 40 mg tablet 40 mg PO DAILY 04/29/21 06/13/21 History diclofenac sodium 1 % topical gel 2 g TOPICAL QID PRN 04/29/21 06/13/21 History flash glucose sensor 04/29/21 06/09/21 History insulin pump controller 04/29/21 06/09/21 History ipratropium bromide 21 mcg (0.03 2 spray INTRANASAL BID 04/29/21 06/13/21 History %) nasal spray levocetirizine 5 mg tablet 5 mg PO DAILY 04/29/21 06/13/21 History multivitamin 1 tablet PO DAILY 04/29/21 06/13/21 History insulin aspart U-100 [Novolog sliding scale dose SUBCUT TID 06/13/21 History Flexpen U-100 Insulin] insulin degludec [Tresiba 20 unit SUBCUT DAILY 06/13/21 06/13/21 History FlexTouch U-100] lisinopril-hydrochlorothiazide 1 tablet PO DAILY 06/13/21 06/13/21 History Allergies Allergy/AdvReac Type Severity Reaction Status Date / Time mold Allergy Unknown unk Verified 07/02/21 09:42 cat dander Allergy Other Verified 07/02/21 09:42 grass pollen Allergy Other Verified 07/02/21 09:42 weed pollen Allerg
[2021-07-02 10:02] LABS: Glucose Point of Care 120 mg/dl (65-105)
[2021-07-02 10:22] VITALS: BP 95/74; PULSE 73; RESP 22; O2SAT 96
[2021-07-02 10:32] VITALS: BP 103/45; PULSE 68; RESP 17; O2SAT 100
[2021-07-02 10:39] LABS: Glucose Point of Care 100 mg/dl (65-105)
[2021-07-02 10:42] VITALS: BP 85/58; PULSE 69; RESP 21; O2SAT 99
== END 2021-07-02 10:57 | disposition home or self-care (01) ==
PROVIDERS: PCP Internal Medicine; Visit Provider Internal Medicine Gastroenterology
PROC: 0DJD8ZZ Inspection of Lower Intestinal Tract, Via Natural or Artificial Opening Endoscopic (ICD-10-PCS; CPT 45378; principal; 2021-07-02 10:45)
DX: Z12.11 Encounter for screening for malignant neoplasm of colon (principal); E10.9 Type 1 diabetes mellitus without complications; I10 Essential (primary) hypertension; E78.00 Pure hypercholesterolemia, unspecified; Z79.4 Long term (current) use of insulin; Z96.41 Presence of insulin pump (external) (internal)
CPT/HCPCS: G0121; 82948; J2704; J7120

== ENCOUNTER 2021-07-12 12:45 | Emergency (ER) | payer MEDICARE, OTHER, SELFPAY ==
--- NOTE | ~2021-07-12 | CT_ITS ---
EXAMINATION: CT abdomen pelvis w con INDICATION: Abdominal pain TECHNIQUE: Computed tomographic images of the abdomen and pelvis were obtained after the administrati on of 100 cc of Omnipaque 350 intravenous contrast. The dose-length product (DLP) was 811.20 mGy-cm. Automated exposure control and iterative reconstruction technique were employed. COMPARISON: 12/09/2019 FINDINGS: Minimal dependent atelectasis is present in the lung bases. The heart size is normal. The g allbladder is surgically absent. There is a 4 mm cyst of the liver. The spleen, pancreas, and adrenal glands are normal. The kidneys are unremarkable. No pathologically enlarged abdominal or pelvic lymp h nodes are identified. There is calcified atherosclerosis of the aorta and many of the other arterie s. There is no free intraperitoneal gas or evidence of bowel obstruction. There are phleboliths of th e pelvis. There is mild lumbar spondylosis. Tiny fat-containing periumbilical ventral hernias are not ed. IMPRESSION: 1. No CT correlate for the patient's symptoms. Reviewed, dictated and finalized at location A. [employer]
[2021-07-12 13:04] VITALS: BP 150/56; PULSE 101; RESP 18; TEMP 36.6; O2SAT 99
[2021-07-12] MEDS: KETOROLAC 15 MG/ML VIAL (*BKC) IV PUSH (13:17)
[2021-07-12 13:20] LABS: Basophils Percent Auto 0.3 % (0.2-1.2); Eosinophils Percent Auto 0.3 % (0-4.4); Hematocrit 37.6 % (37.0-47.0); Hemoglobin 12.6 g/dL (12.0-15.0); Immature Granulocyte Absolute 0.02 K/mm3 (0.00-0.031); Immature Granulocyte Percent A 0.2 % (0-0.5); Lymphocytes Absolute Auto 1.76 K/mm3 (0.9-3.2); Lymphocytes Percent Auto 16.5 % (18.3-44.2); Mean Corpuscular HGB Conc 33.5 g/dl (32-36); Mean Corpuscular Hemoglobin 29.6 pg (26-34); Mean Corpuscular Volume 88.3 fl (80-100); Mean Platelet Volume 8.9 fl (7.4-10.4); Monocytes Percent Auto 9.5 % (2.6-8.5); Neutrophils Absolute Auto 7.8 K/mm3 (1.3-6.7); Neutrophils Percent Auto 73.2 % (45.5-73.1); Platelet Count Result 297 k/mm3 (150-375); Red Blood Count 4.26 M/mm3 (4.2-5.4); Red Cell Distribution Width 12.2 % (11.5-14.5); White Blood Count 10.7 K/mm3 (4.5-10.0)
[2021-07-12 13:32] LABS: Alanine Aminotransferase 26 U/L (4-35); Albumin Level 4.6 g/dL (3.5-5.1); Alkaline Phosphatase 65 U/L (38-126); Anion Gap 8 mmol/L (8-16); Aspartate Amino Transferase 37 U/L (14-36); Bilirubin,Total 0.6 mg/dL (0.2-1.3); Blood Urea Nitrogen 13 mg/dL (7-17); Calcium 9.3 mg/dL (8.4-10.2); Carbon Dioxide 25 mmol/L (22-30); Chloride 96 mmol/L (98-107); Estimated CRCL calculation 81 ml/min; Estimated Glomerular Filt Rate > 60; Glucose 206 mg/dL (65-110); Lipase 40 U/L (23-300); Potassium 3.7 mmol/L (3.4-5.0); Sodium 129 mmol/L (137-145)
[2021-07-12 14:31] VITALS: BP 120/52; PULSE 77; RESP 18; O2SAT 100
[2021-07-12 14:42] LABS: Add Urine Microscopic? NO; Appearance Urine Clear (Clear); Bilirubin Urine Negative (Negative); Blood Urine Negative (Negative); Color Urine Straw (Yellow); Glucose Urine UA Negative (Negative); Ketones Urine Negative (Negative); Leukocyte Esterase Ur Negative LEU/UL (Negative); Nitrate Urine Negative (Negative); Protein Urine Negative (Negative); Urobilinogen Urine Negative mg/dL (<2.0)
[2021-07-12 14:49] LABS: Specific Grav Ur > 1.060 (1.001-1.035)
--- NOTE | 2021-07-12 15:06 | ED.GENADULT ---
HPI - General Adult General Chief complaint: Abdominal Pain Stated complaint: abd pain, low grade temp, post colonoscopy Time Seen by Provider: 07/12/21 12:47 History of Present Illness HPI narrative: Patient is a 65-year-old female who presents to the ER with abdominal cramping. Ongoing over the last couple days. Associated with some creamy/formed stools. No fevers or chills or sweats. No blood. She does note an elevated temperature running 99 ?F. Symptoms began 4 days after her colonoscopy which was normal in appearance. Patient reports she has now started taking a probiotic to help with her abdominal bloating and cramping that is worsened in the lower part of her abdomen. No known sick contacts. Patient also reports she has developed some right-sided low back pain that is worse with bending and twisting since the symptoms began. Related Data Home Medications Medication Instructions Recorded Confirmed amlodipine 10 mg PO DAILY 12/09/19 06/13/21 cholecalciferol (vitamin D3) 50 mcg PO DAILY 12/09/19 06/13/21 [Vitamin D3] atorvastatin 40 mg tablet 40 mg PO DAILY 04/29/21 06/13/21 diclofenac sodium 1 % topical gel 2 g TOPICAL QID PRN 04/29/21 06/13/21 flash glucose sensor 04/29/21 06/09/21 insulin pump controller 04/29/21 06/09/21 ipratropium bromide 21 mcg (0.03 2 spray INTRANASAL BID 04/29/21 06/13/21 %) nasal spray levocetirizine 5 mg tablet 5 mg PO DAILY 04/29/21 06/13/21 multivitamin 1 tablet PO DAILY 04/29/21 06/13/21 insulin aspart U-100 [Novolog sliding scale dose SUBCUT TID 06/13/21 Flexpen U-100 Insulin] insulin degludec [Tresiba 20 unit SUBCUT DAILY 06/13/21 06/13/21 FlexTouch U-100] lisinopril-hydrochlorothiazide 1 tablet PO DAILY 06/13/21 06/13/21 Allergies Allergy/AdvReac Type Severity Reaction Status Date / Time mold Allergy Unknown unk Verified 07/12/21 13:09 cat dander Allergy Other Verified 07/12/21 13:09 grass pollen Allergy Other Verified 07/12/21 13:09 weed pollen Allergy Other Verified 07/12/21 13:09 dust Allergy Other Uncoded 07/12/21 13:09 Review of Systems Review of Systems: All systems reviewed & are unremarkable except as noted in HPI and below Constitutional: Constitutional: Denies chills, Denies fever(s) and Denies weakness ENT: Denies nasal congestion and Denies sore throat Cardiovascular: Cardiovascular: Denies chest pain, Denies rapid heart rate and Denies radiating jaw, neck or arm pain Respiratory: Respiratory: Denies cough and Denies dyspnea Gastrointestinal: Gastrointestinal: Reports abdominal pain, Reports bloating, Denies constipation, Denies nausea and Denies vomiting Genitourinary: Genitourinary: Reports nocturia (Due to increased water intake), Denies dysuria and Denies flank pain Musculoskeletal: Musculoskeletal: Reports back pain and Denies muscle cramps PMFSH Past Medical History Medical History Arthritis Back pain Bleeding nose Chills Dizziness DM type 1 (diabetes mellitus, type 1) High blood pressure Hypercholesterolemia Left ankle pain Left knee DJD Right knee DJD Vertigo Surgical History Surgical History History of appendectomy History of X2 History of hysterectomy total 2002 History of trigger finger Family History Family History Sibling Diabetes mellitus Family history of kidney disease Mother Family history of osteoporosis Family history of mental disorder Family history of cardiovascular disease Family history of coronary artery disease Family history of congestive heart failure Family history of hearing loss Father Family history of cardiovascular disease Cerebrovascular accident Family history of chronic obstructive pulmonary disease Diabetes mellitus Emphysema lung Other Hypertension Social History Social History (Reviewed 06/23/21 @ 14:42 by Ammy
== END 2021-07-12 15:56 | disposition home or self-care (01) ==
PROVIDERS: Emergency Provider Emergency Medicine; PCP Internal Medicine
DX: R14.0 Abdominal distension (gaseous) (principal); R10.9 Unspecified abdominal pain; M19.90 Unspecified osteoarthritis, unspecified site; E10.9 Type 1 diabetes mellitus without complications; Z79.4 Long term (current) use of insulin; I10 Essential (primary) hypertension; E78.5 Hyperlipidemia, unspecified
CPT/HCPCS: 36415; 74177; 80053; 81003; 83690; 85025; 96374; 99284; J1885; Q9967

== ENCOUNTER 2021-10-28 16:23 | Emergency (ER) | payer MEDICARE, OTHER, SELFPAY ==
--- NOTE | ~2021-10-28 | XR_ITS ---
EXAMINATION: XR toe 4th LT min 2V DATE: 10/28/2021 17:08 INDICATION: Left fourth toe injury and pain. TECHNIQUE: 4 views of left fourth toe were obtained. COMPARISON: None. FINDINGS: Bone alignment is normal. There is ankylosis of fourth middle and distal phalanges. There i s a nondisplaced transverse fracture of fourth middle phalanx. Joint spaces are normal. IMPRESSION: 1. Nondisplaced transverse fracture of fourth middle phalanx. Reviewed, dictated and finalized at location A.
[2021-10-28 16:41] VITALS: BP 157/51; PULSE 85; RESP 16; TEMP 37; O2SAT 100
--- NOTE | 2021-10-28 17:39 | ED.LOWEXIN ---
HPI - Extremity Injury (Lower) General Chief Complaint: Extremity Injury, Lower Stated Complaint: Left foot toe injury Time Seen by Provider: 10/28/21 17:50 Source: patient and RN notes reviewed Mode of arrival: ambulatory Limitations: no limitations History of Present Illness HPI Narrative: 65-year-old female presents concern for injured fourth toe of the left foot. Reports she stubbed it this morning. Reports later she noticed it was swelling and bruised. She denies decreased sensation, strength. She denies other injury. MD complaint: foot injury Related Data Home Medications Medication Instructions Recorded Confirmed amlodipine 10 mg PO DAILY 12/09/19 10/28/21 cholecalciferol (vitamin D3) 50 mcg PO DAILY 12/09/19 10/28/21 [Vitamin D3] atorvastatin 40 mg tablet 40 mg PO DAILY 04/29/21 10/28/21 flash glucose sensor 04/29/21 06/09/21 insulin pump controller 04/29/21 06/09/21 ipratropium bromide 21 mcg (0.03 2 spray INTRANASAL BID 04/29/21 10/28/21 %) nasal spray levocetirizine 5 mg tablet 5 mg PO DAILY 04/29/21 06/13/21 multivitamin 1 tablet PO DAILY 04/29/21 06/13/21 insulin aspart U-100 [Novolog sliding scale dose SUBCUT TID 06/13/21 Flexpen U-100 Insulin] insulin degludec [Tresiba 20 unit SUBCUT DAILY 06/13/21 10/28/21 FlexTouch U-100] lisinopril-hydrochlorothiazide 1 tablet PO DAILY 06/13/21 10/28/21 Allergies Allergy/AdvReac Type Severity Reaction Status Date / Time mold Allergy Unknown unk Verified 10/28/21 16:57 cat dander Allergy Other Verified 10/28/21 16:57 grass pollen Allergy Other Verified 10/28/21 16:57 weed pollen Allergy Other Verified 10/28/21 16:57 dust Allergy Other Uncoded 10/28/21 16:57 Review of Systems Review of Systems: CONSTITUTIONAL: Denies malaise, chills, sweats, or fever. SKIN: Denies rash or itching, open skin, laceration, abrasion, redness, warmth MUSCULOSKELETAL: Reports left fourth toe pain, bruising, swelling NEUROLOGIC: Denies numbness, weakness All systems reviewed & are unremarkable except as noted in HPI and below PMFSH Past Medical History Medical History Arthritis Back pain Bleeding nose Chills Dizziness DM type 1 (diabetes mellitus, type 1) High blood pressure Hypercholesterolemia Left ankle pain Left knee DJD Right knee DJD Vertigo Surgical History Surgical History History of appendectomy History of X2 History of hysterectomy total 2002 History of trigger finger Family History Family History Sibling Diabetes mellitus Family history of kidney disease Mother Family history of osteoporosis Family history of mental disorder Family history of cardiovascular disease Family history of coronary artery disease Family history of congestive heart failure Family history of hearing loss Father Family history of cardiovascular disease Cerebrovascular accident Family history of chronic obstructive pulmonary disease Diabetes mellitus Emphysema lung Other Hypertension Social History Social History Smoking packs per day: 0 Smoking cigarettes per day: 0.0 Smoking status: Never smoker Second hand tobacco smoke exposure: Yes Alcohol intake: current Drinks per week: 1 Substance use: never Substance use type: does not use Additional occupation/education comments: Banker Gender identity (if verbalized by the patient): Female Spiritual care concerns: No Comments At time of signature, agree with nursing past medical, surgical, social and family history. There is no relevant family history pertinent to the presenting complaint Exam Narrative: GENERAL: Well-appearing, well-nourished, and in no acute distress. HEAD: Normocephalic, atraumatic. EYES: PERRLA, conjunctivae clear NECK
== END 2021-10-28 18:10 | disposition home or self-care (01) ==
PROVIDERS: Emergency Provider Nurse Practitioner; PCP Internal Medicine
DX: S92.525A Nondisplaced fracture of middle phalanx of left lesser toe(s), initial encounter for closed fracture (principal); X58.XXXA Exposure to other specified factors, initial encounter; M19.90 Unspecified osteoarthritis, unspecified site; I10 Essential (primary) hypertension; E78.00 Pure hypercholesterolemia, unspecified; M17.0 Bilateral primary osteoarthritis of knee; E10.9 Type 1 diabetes mellitus without complications; Z79.4 Long term (current) use of insulin
CPT/HCPCS: 73660; 99214; G0463

== ENCOUNTER 2021-11-05 17:06 | Observation (INO) | payer MEDICARE, OTHER, SELFPAY ==
[2021-11-05] VITALS (29 sets, daily range): BP systolic 124–173; BP diastolic 46–70; PULSE 59–83; RESP 11–20; TEMP 36.8–36.9; O2SAT 95–100; BMI 28.8
--- NOTE | ~2021-11-05 | XR_ITS ---
EXAMINATION: XR chest 2V Exam Date/Time: 11/05/2021 17:35 CDT CLINICAL HISTORY: LT SIDE CP, HX HTN, DIABETIC Comparison: None available RESULT: Lines, tubes, and devices: None. Lungs and pleura: Clear. Cardiomediastinal silhouette: Normal cardiomediastinal silhouette. Other: No acute osseous or upper abdominal finding. IMPRESSION: No acute cardiopulmonary process. Reviewed, dictated and finalized at location K.
--- NOTE | ~2021-11-05 | NM_ITS ---
EXAMINATION: NM leonard stress w perfusion DATE: 11/06/2021 12:54 INDICATION: Chest pain. TECHNIQUE: Rest images were obtained following intravenous administration of 9.0 mCi Tc99m tetrofosmi n (Myoview). The patient was infused intravenously with Lexiscan (regadenoson). Then, 30.0 mCi Tc99m tetrofosmin (Myoview) was administered intravenously, and stress images were obtained. Data was recon structed into short axis and horizontal and vertical long axis SPECT images. Gated SPECT images were also obtained. COMPARISON: CT abdomen and pelvis 07/12/2021 FINDINGS: There is no definite reversible or fixed perfusion abnormality to suggest ischemia or infar ction. There is no segmental wall motion abnormality. Left ventricular ejection fraction measures > 70%. IMPRESSION: 1. No definite ischemia or infarct. 2. Normal left ventricular ejection fraction measuring >70%. Reviewed, dictated and finalized at location A.
--- NOTE | 2021-11-05 17:08 | ECG_ITS ---
Measurements Intervals [place] Rate: 76 P: 71 [place]: 155 QRS: 48 QRSD: 76 T: 59 QT: 360 QTc: 405 Interpretive Statements SINUS RHYTHM COMPARED TO ECG 01/29/2020 11:28:22 NO SIGNIFICANT CHANGES Electronically Signed On 11-05-2021 21:21:19 CDT by Bettina Jones M.D.
[2021-11-05 17:24] LABS: Basophils Percent Auto 0.3 % (0.2-1.2); Eosinophils Absolute Auto 0.1 K/mm3 (0-0.3); Eosinophils Percent Auto 1.2 % (0-4.4); Hematocrit 40.1 % (37.0-47.0); Hemoglobin 13.1 g/dL (12.0-15.0); Immature Granulocyte Absolute 0.03 K/mm3 (0.00-0.031); Immature Granulocyte Percent A 0.3 % (0-0.5); Lymphocytes Percent Auto 27.8 % (18.3-44.2); Mean Corpuscular HGB Conc 32.7 g/dl (32-36); Mean Corpuscular Hemoglobin 29.6 pg (26-34); Mean Corpuscular Volume 90.5 fl (80-100); Mean Platelet Volume 8.8 fl (7.4-10.4); Monocytes Percent Auto 9.7 % (2.6-8.5); Neutrophils Absolute Auto 6.3 K/mm3 (1.3-6.7); Neutrophils Percent Auto 60.7 % (45.5-73.1); Platelet Count Result 255 k/mm3 (150-375); Red Blood Count 4.43 M/mm3 (4.2-5.4); Red Cell Distribution Width 12.8 % (11.5-14.5); White Blood Count 10.4 K/mm3 (4.5-10.0)
[2021-11-05 17:37] LABS: INR 0.9; Partial Thromboplastin Time 28.1 SECONDS (22.3-36.8); Prothrombin Time 12.2 Seconds (11.1-14.7)
[2021-11-05 17:38] LABS: Alanine Aminotransferase 29 U/L (4-35); Albumin Level 4.8 g/dL (3.5-5.1); Alkaline Phosphatase 66 U/L (38-126); Anion Gap 6 mmol/L (8-16); Aspartate Amino Transferase 38 U/L (14-36); Bilirubin,Total 0.1 mg/dL (0.2-1.3); Blood Urea Nitrogen 19 mg/dL (7-17); Calcium 9.4 mg/dL (8.4-10.2); Carbon Dioxide 28 mmol/L (22-30); Chloride 101 mmol/L (98-107); Estimated CRCL calculation 44 ml/min; Estimated Glomerular Filt Rate 55; Glucose 130 mg/dL (65-110); Lipase 73 U/L (23-300); Potassium 3.9 mmol/L (3.4-5.0); Sodium 135 mmol/L (137-145)
[2021-11-05 17:49] LABS: Troponin I < 0.012 ng/mL (0.000-0.034)
[2021-11-05] MEDS: ASPIRIN 81 MG CHEWABLE TABLET 324 MG PO (18:37)
--- NOTE | 2021-11-05 18:55 | ED.CHESTPAIN ---
HPI - Chest Pain General Chief Complaint: Chest Pain Stated Complaint: angina Time Seen by Provider: 11/05/21 17:55 Source: patient and family Mode of arrival: ambulatory Limitations: no limitations History of Present Illness HPI narrative: 65-year-old with a history of hypertension, diabetes here with complaints of left-sided chest pain radiating into the left arm started few hours ago. She denies doing any stressful work while she started having pain, she states her pain is much reduced. She denies any shortness of breath, nausea or vomiting or diaphoresis. Patient states that she never had a stress test before. MD complaint: chest pain Onset (ago): hour(s) (2) Timing of current episode: constant Onset: during rest Pain location: left chest Pain radiation: left arm Severity: moderate Quality: heaviness Relieving factors: other (Aspirin) Exacerbating factors: nothing Risk Factors Coronary artery disease risk factors: diabetes and hypertension Related Data Home Medications Medication Instructions Recorded Confirmed cholecalciferol (vitamin D3) 50 mcg PO DAILY 12/09/19 11/05/21 [Vitamin D3] atorvastatin 40 mg tablet 40 mg PO DAILY 04/29/21 11/05/21 flash glucose sensor 04/29/21 11/05/21 insulin pump controller 04/29/21 11/05/21 ipratropium bromide 21 mcg (0.03 2 spray INTRANASAL BID 04/29/21 11/05/21 %) nasal spray levocetirizine 5 mg tablet 5 mg PO DAILY 04/29/21 11/05/21 multivitamin 1 tablet PO DAILY 04/29/21 11/05/21 insulin aspart U-100 [Novolog sliding scale dose SUBCUT TID 06/13/21 11/05/21 Flexpen U-100 Insulin] insulin degludec [Tresiba 20 unit SUBCUT DAILY 06/13/21 11/05/21 FlexTouch U-100] lisinopril-hydrochlorothiazide 1 tablet PO DAILY 06/13/21 11/05/21 Allergies Allergy/AdvReac Type Severity Reaction Status Date / Time mold Allergy Unknown unk Verified 11/05/21 10:44 cat dander Allergy Other Verified 11/05/21 10:44 grass pollen Allergy Other Verified 11/05/21 10:44 weed pollen Allergy Other Verified 11/05/21 10:44 dust Allergy Other Uncoded 11/05/21 10:44 Review of Systems Review of Systems: All systems reviewed & are unremarkable except as noted in HPI and below Constitutional: Constitutional: Reports no additional constitutional complaints Eyes: Eyes: Reports no additional eye complaints ENT: Reports system reviewed and no additional complaints, except as documented Cardiovascular: Cardiovascular: Reports as per HPI Respiratory: Respiratory: Reports no additional respiratory complaints Gastrointestinal: Gastrointestinal: Reports no additional gastrointestinal complaints Musculoskeletal: Musculoskeletal: Reports no additional musculoskeletal complaints [facility] Past Medical History Medical History Arthritis Back pain Bleeding nose Chills Dizziness DM type 1 (diabetes mellitus, type 1) High blood pressure Hypercholesterolemia Left ankle pain Left knee DJD Right knee DJD Vertigo Surgical History Surgical History History of appendectomy History of X2 History of hysterectomy total 2002 History of trigger finger Family History Family History Sibling Diabetes mellitus Family history of kidney disease Mother Family history of osteoporosis Family history of mental disorder Family history of cardiovascular disease Family history of coronary artery disease Family history of congestive heart failure Family history of hearing loss Father Family history of cardiovascular disease Cerebrovascular accident Family history of chronic obstructive pulmonary disease Diabetes mellitus Emphysema lung Other Hypertension Social History Social History Smoking packs per day: 0 Smoking cigarettes per day: 0.0 Second hand tobacco smoke exposu
--- NOTE | 2021-11-05 19:00 | PM.IMHP ---
H&P: HPI History of Present Illness Date/Time: 11/05/21 19:00 Chief Complaint: Chest discomfort. Narrative: This is a pleasant 65-year-old female with type 1 diabetes diagnosed at the age of 11, hypertension, dyslipidemia, and obstructive sleep apnea who presented to the emergency department from home for evaluation of chest discomfort. She had her annual wellness exam today and seemed to be doing just fine at that time. Thereafter she had lunch and reports that her glucose ?skyrocketed? which she was able to correct with boluses and a brief adjustment in her basal rate. At about 12:30 she developed a tightness sensation on the left side of her upper chest radiating to the left axilla. She initially attributed the sensation to a recent increase in stressors so she took a couple of aspirin and sat on the sofa to see if it would pass. Unfortunately this discomfort continued and she felt it best to come in for evaluation. In addition to the tightness sensation she had a bit of nausea but she denies associated diaphoresis, vomiting, and shortness of breath. She has never had similar symptoms in the past and denies exertional chest pain and shortness of breath. She had an exercise stress test done well over a decade ago which was normal. At the time my evaluation she is without significant discomfort. Review of Systems Review of Systems: Twelve systems were reviewed. No recent cold or flu symptoms. No significant GERD or indigestion. She denies bloating and belching. No diarrhea or constipation. She is not tolerant of CPAP and is in the process of getting a mandibular adjustment device that fits her well. Her diabetes has been pretty well controlled her entire life and she has been on insulin pump for over 20 years. She reports never having an episode of DKA. Except as documented, all other systems were reviewed and are negative. [facility] Past Medical History Medical History (Updated 11/05/21 @ 23:19 by Estefani See PA-C) Allergies Currently receiving allergy shots. Arthritis Hypercholesterolemia Hypertension Obstructive sleep apnea Intolerant to CPAP. Currently being fitted for and mandibular advancement device. Type 1 diabetes mellitus Surgical History Surgical History (Updated 11/05/21 @ 23:13 by Estefani See PA-C) History of 2 sections History of appendectomy History of cholecystectomy History of hysterectomy (2002) History of trigger finger Multiple, bilateral trigger finger releases. Family History Family History (Updated 11/05/21 @ 23:14 by Estefani See PA-C) Sibling Diabetes mellitus Family history of kidney disease Mother Family history of osteoporosis Family history of mental disorder Family history of cardiovascular disease Family history of coronary artery disease Family history of congestive heart failure Family history of hearing loss Father Family history of cardiovascular disease Cerebrovascular accident Family history of chronic obstructive pulmonary disease Diabetes mellitus Emphysema lung Sibling Heart disease End stage renal disease Valvular heart disease Other Hypertension Social History Social History (Updated 11/05/21 @ 23:15 by Estefani See PA-C) Social History: Surrogate decision maker: Glen Hannah, spouse. Code status: Full code. Smoking status: Never smoker Second hand tobacco smoke exposure: Yes Alcohol intake: current Drinks per week: 1 Substance use: never Substance use type: does not use Additional living arrangements comments: The patient lives with her in [place]. Spiritual care concerns: No Meds Home Medications and Allergies Home Medications Medication Instructions Recorded Confirmed Type cholecalciferol (vitamin D3) 50 mcg PO DAILY 12/09/19 11/05/21 History [Vitamin D3] atorvastatin 40 mg tablet 40 mg PO DAILY 04/29/21 11/05/21 History flash glucose sensor 04/29/21 11/05/21 History
[2021-11-05 20:23] LABS: SARS-CoV-2 RNA PCR Negative
[2021-11-05 20:59] LABS: Troponin I < 0.012 ng/mL (0.000-0.034)
--- NOTE | 2021-11-05 21:50 | ADMGEN ---
This patient, Pauline Young, was admitted to Intensive Care Unit-7 on 11/05/21 at 2130. Patient/family oriented to hospital policies and general routines including ID bracelet, bed and alarms, visiting hours, pain management, procedures, bathroom and other care routines, personal items, smoking policy, room service/diet, and visiting hours. Information on how to activate the Rapid Response Team has been discussed. Patient/Family are encouraged to report perceived risks to care and to ask questions if they do not understand what they are told or what they should do.
[2021-11-05 23:24] LABS: Troponin I < 0.012 ng/mL (0.000-0.034)
[2021-11-06] VITALS (11 sets, daily range): BP systolic 115–135; BP diastolic 39–73; PULSE 52–121; RESP 11–23; TEMP 36.4–36.6; O2SAT 97–100
--- NOTE | 2021-11-06 | ECHO_ITS ---
Patient Info Name: Pauline Young Age: 65 years : 1955 Gender: Female Ht: 61 in Wt: 153 lbs BSA: 1.75 m2 HR: 63 bpm BP: 129 / 50 mmHg Heart Rhythm: Sinus Rhythm Exam Date: 11/06/2021 1:55 PM Exam Location: [facility] Patient Status: Inpatient Admit Date: 11/05/2021 Staff Ordering Physician: Vargas Coon MD Director Data Processing: Juan Antonio Valdez, TAD, RT Attending Provider: Christina Glass MD Referring Physician: Jaymie JACKSON; Exam Type: CA echo doppler color flow Study Info Indications R07.9 - Chest pain, unspecified Complete two-dimensional, color flow and Doppler transthoracic echocardiogram is performed. Strain analysis performed. Summary 1. Complete two-dimensional, color flow and Doppler transthoracic echocardiogram is performed. 2. Normal left ventricular size and thickness with good contractility of all segments. No segmental wall motion abnormalities. Ejection fraction 60-65%. Global longitudinal strain normal at -18%. Normal diastolic function. 3. Mild left atrial enlargement. 4. No significant valve disease. 5. Normal estimated pulmonary pressure. 6. Normal sinus rhythm. Left Ventricle Left ventricular chamber dimension is normal. Left ventricular systolic function is normal, estimated at 60-65%. There is no increased left ventricular wall thickness. Left ventricular septal wall motion is normal. The left ventricular diastolic function is normal. Global longitudinal strain is normal at -18 %. Right Ventricle Right ventricular chamber dimension is normal. Right ventricular systolic function is normal. Left Atria Left atrial chamber dimension is mildly enlarged. Right Atria Right atrial chamber dimension is normal. Aortic Valve The aortic valve is trileaflet. There is mild aortic valve sclerosis. There is no aortic valve stenosis. There is no aortic valve regurgitation. Pulmonic Valve The pulmonic valve is normal. There is no pulmonic valve stenosis. There is trace pulmonic regurgitation. Mitral Valve The mitral valve has normal leaflets. There is no mitral valve stenosis. There is trace mitral valve regurgitation. Tricuspid Valve The tricuspid valve leaflets are normal. There is no significant tricuspid valve stenosis. There is trace tricuspid valve regurgitation. No pulmonary hypertension, estimated pulmonary arterial systolic pressure is 32 mmHg. Pericardium/Pleural The pericardium appears normal. There is no pericardial effusion. Inferior Vena Cava Normal inferior vena cava with >50% collapse upon inspiration consistent with Empty right atrial pressure, 5 mmHg. Aorta The aortic root size at the sinus of Valsalva is normal. The prox ascending aorta size is normal. Left Ventricular Outflow Tract Name Value Normal LVOT 2D LVOT Diameter 1.9 cm LVOT Doppler LVOT Peak Gradient 4 mmHg LVOT Mean Gradient 2 mmHg LVOT VTI 24 cm LVOT VTI/AV VTI Ratio 0.8 LVOT Stroke Volume 68 ml
[2021-11-06] MEDS: lisinopriL 20 MG TABLET 40 MG PO (00:13)
[2021-11-06 04:56] LABS: Glucose Point of Care 65 mg/dl (65-105)
--- NOTE | 2021-11-06 04:58 | PC.NURSE ---
Pt has insulin pump and glucometer. She put on her call light because her BS was 55. Pt drank 1 apple juice. BS rechecked - 65. Pt turned off basal and refused anything else. Dr Rivero made aware.
[2021-11-06 05:31] LABS: Anion Gap 6 mmol/L (8-16); Blood Urea Nitrogen 17 mg/dL (7-17); Calcium 8.8 mg/dL (8.4-10.2); Carbon Dioxide 27 mmol/L (22-30); Chloride 104 mmol/L (98-107); Estimated CRCL calculation 82 ml/min; Estimated Glomerular Filt Rate > 60; Glucose 42 mg/dL (65-110); Magnesium 2.1 mg/dL (1.6-2.3); Potassium 3.5 mmol/L (3.4-5.0); Sodium 137 mmol/L (137-145)
--- NOTE | 2021-11-06 05:44 | PC.NURSE ---
0530 pt rechecked BS - 93.
[2021-11-06] MEDS: amLODIPine BESYLATE 5 MG TABLET 10 MG PO (08:47)
[2021-11-06] MEDS: lisinopriL 20 MG TABLET PO (08:48)
[2021-11-06] MEDS: hydroCHLOROthiazide 25 MG TABLET PO (08:49)
--- NOTE | 2021-11-06 09:30 | PC.NURSE ---
Per patient insulin pump, 0800 reading is 122
--- NOTE | 2021-11-06 10:37 | EST_ITS ---
Patient Info Name: Pauline Young Age: 65 years : 1955 Gender: Female Ht: 61 in Wt: 152 lbs BSA: 1.75 m2 HR: 71 bpm BP: 130 / 55 mmHg Heart Rhythm: Sinus Rhythm Exam Date: 11/06/2021 11:57 AM Exam Location: [facility] Stress Patient Status: Inpatient Admit Date: 11/05/2021 Staff Ordering Physician: Vargas Coon MD Attending Provider: Christina Glass MD Exercise Technologist: Rosalva Giles CT Nurse: steffen saucedo Exam Type: CA stress leonard w NM Study Info Indications R07.9 - Chest pain, unspecified A regadenoson stress test was performed. Summary 1. No abnormal ST-T wave changes with lexiscan. 2. Nuclear test results to follow. Protocol: Lexiscan Stress ECG Details Stage: REST Duration (min): 5 min : 6 sec HR (bpm): 71 SBP (mmHg): 245 DBP (mmHg): 55 Stage: REST Duration (min): 10 min : 21 sec HR (bpm): 69 SBP (mmHg): 245 DBP (mmHg): 55 Stage: STAGE 1 Duration (min): 0 min : 59 sec HR (bpm): 107 SBP (mmHg): 245 DBP (mmHg): 55 Stage: RECOVERY Duration (min): 1 min : 0 sec HR (bpm): 113 SBP (mmHg): 245 DBP (mmHg): 55 Stage: RECOVERY Duration (min): 2 min : 0 sec HR (bpm): 98 SBP (mmHg): 245 DBP (mmHg): 55 Stage: RECOVERY Duration (min): 3 min : 0 sec HR (bpm): 105 SBP (mmHg): 245 DBP (mmHg): 55 Stage: RECOVERY Duration (min): 3 min : 30 sec HR (bpm): 102 SBP (mmHg): 245 DBP (mmHg): 55 Rest HR: 69 bpm Peak HR: 121 bpm Rest Sys BP: 245 mmHg Max Pred HR: 154 bpm % Max Pred HR: 79 % Target HR: 131 bpm Max RPP: 17,885 bpm*mmHg BP Response: Normal blood pressure response Termination Reason: Completed protocol Cardiac Symptoms: Chest discomfort, Shortness of breath Total Time: 1 min : 0 sec Rest [place] BP: 55 mmHg Total Dose: 0.4 mg Resting ECG Normal sinus rhythm - normal ECG. Stress ECG No abnormal ST/T wave changes with exercise. Arrhythmias None. Report Signatures
--- NOTE | 2021-11-06 11:26 | PM.CNCAR ---
Assessment and Plan Additional Plan -chest pain -type 1 diabetes on insulin -hypertension -hyperlipidemia This 65-year-old female with past history of type 1 diabetes, hypertension hyperlipidemia presents to hospital with left chest pain that was constant and lasted for few hours. Troponinx3 negative and no ischemia on EKG. At this time will order Lexiscan stress test to rule out ischemia. Will order echocardiogram to assess valvular function given her family history of valve disease. Further recommendations pending the test results. History of Present Illness History of Present Illness Consult date/time: Date of service 11/06/21 11:26 Requesting physician: Hans Case MD Consult reason: chest pain Reason For Visit: chest pain Narrative: This 65-year-old female with past history of type 1 diabetes since age 11, hypertension, hyperlipidemia who presents here to the hospital with chest pain. She stated that after eating she had some issue insulin infusion site and her blood sugar had a spike that was high. She after that started to feel left chest pain that was constant started at 12:30 p.m. and persisted till 4:00 p.m. at the time when she told her that she needs to come to hospital. Again pain was constant with no aggravating or relieving factors. It felt dull. Denies shortness of breath, dizziness, syncope, orthopnea paroxysmal nocturnal dyspnea. She sometimes feels episodes of intermittent palpitations with no aggravating or relieving factors. Never smoked cigarettes. She states that heart valve disease runs in her family but no myocardial infarction. Troponins x3 negative, chest x-ray viewed and asthma cervix unremarkable. EKG revealed a large massive shows normal sinus rhythm with no ischemia. COVID negative Review of Systems Constitutional: Constitutional: Denies chills, Denies fever(s) and Denies poor appetite Eyes: Eyes: Denies eye discharge, Denies loss of vision, Denies eye pain and Denies photophobia ENT: Denies dizziness, Denies epistaxis, Denies nasal congestion and Denies sore throat Cardiovascular: Cardiovascular: Reports chest pain, Denies syncope, Denies pedal edema, Denies leg edema, Denies palpitations, Denies dyspnea, Denies dyspnea on exertion and Denies orthopnea Respiratory: Respiratory: Denies cough, Denies dyspnea, Denies dyspnea on exertion and Denies wheezing Gastrointestinal: Gastrointestinal: Denies abdominal pain, Denies diarrhea, Denies nausea and Denies vomiting Genitourinary: Genitourinary: Denies hematuria, Denies genital lesions and Denies dysuria Musculoskeletal: Musculoskeletal: Denies arthralgias, Denies joint swelling and Denies numbness Integumentary/Breasts: Skin/Breast: Denies pruritus and Denies rash Neurologic: Denies dizziness, Denies syncope, Denies loss of vision and Denies numbness Psychiatric: Psychiatric: Denies anxiety and Denies depression Endocrine: Endocrine: Denies cold intolerance, Denies heat intolerance and Denies palpitations Hematologic/Lymphatic: Hematologic/Lymphatic: Denies easy bleeding and Denies easy bruising Allergic/Immunologic: Allergic/Immunologic: Denies urticaria and Denies wheezing PMFSH Past Medical History Medical History Allergies Currently receiving allergy shots. Arthritis Hypercholesterolemia Hypertension Obstructive sleep apnea Intolerant to CPAP. Currently being fitted for and mandibular advancement device. Type 1 diabetes mellitus Surgical History Surgical History History of 2 sections History of appendectomy History of cholecystectomy History of hysterectomy (2002) History of trigger finger Multiple, bilateral trigger finger releases. Family History Family History Sibling Diabetes mellitus Family history of kidney disease Mother Bharati
[2021-11-06] MEDS: HOME MEDICATION INSULIN PUMP 1 EACH XX (12:11)
--- NOTE | 2021-11-06 13:05 | PC.NURSE ---
Patient returned to room following Lexiscan stress test.
[2021-11-06] MEDS: ATORVASTATIN 40 MG TABLET PO (13:38)
[2021-11-06] MEDS: MULTIVITAMINS THERAPEUTIC TAB (*BKC) 1 TABLET PO (13:38)
[2021-11-06] MEDS: IPRATROPIUM NASAL SPRAY 0.03% 15 ML BOTTLE 2 SPRAY NASAL ×2 (13:38→17:22)
[2021-11-06] MEDS: CHOLECALCIFEROL 1,000 UNITS TABLET 2000 UNITS PO (13:38)
--- NOTE | 2021-11-06 14:20 | PC.NURSE ---
Zelda's blood sugar is 135 at 1420.
--- NOTE | 2021-11-06 19:01 | PM.DS ---
DS: Admitting Diagnosis Discharge Date 11/06/21 Admitting Diagnosis (1) Chest discomfort: Code(s): R07.89 - Other chest pain Status: Acute (2) Type 1 diabetes mellitus: Code(s): E10.9 - Type 1 diabetes mellitus without complications Status: Acute (3) Hypertension: Code(s): I10 - Essential (primary) hypertension Status: Acute DS: Discharge Diagnosis Discharge Diagnosis (1) Chest discomfort: Code(s): R07.89 - Other chest pain Status: Acute (2) Obstructive sleep apnea: Code(s): G47.33 - Obstructive sleep apnea (adult) (pediatric) Status: Acute (3) Hypertension: Code(s): I10 - Essential (primary) hypertension Status: Acute (4) Type 1 diabetes mellitus: Code(s): E10.9 - Type 1 diabetes mellitus without complications Status: Acute (5) Essential hypertension: Code(s): I10 - Essential (primary) hypertension Status: Acute (6) Dyslipidemia: Code(s): E78.5 - Hyperlipidemia, unspecified Status: Acute (7) Hypercholesterolemia: Code(s): E78.00 - Pure hypercholesterolemia, unspecified Status: Acute (8) DM type 1 (diabetes mellitus, type 1): Qualifiers: Diabetes mellitus complication status: with neurologic complications Diabetes mellitus complication detail: with unspecified neuropathy Qualified Code(s): E10.40 - Type 1 diabetes mellitus with diabetic neuropathy, unspecified Code(s): E10.9 - Type 1 diabetes mellitus without complications Status: Acute DS: Summary Hospital Course Reason for hospitalization: chest pain Hospital Course: 65-year-old female admitted to the hospital for chest pain rule out ACS. Cardiology was consulted and patient underwent Lexiscan and echocardiogram after troponins were found to be negative x3 without any findings of ischemia on EKG. Her stress test was negative and her echocardiogram showed normal diastolic dysfunction with ejection fraction of 60-65% mild left atrial enlargement without significant valvular disease. It is patient subsequently discharged home in stable condition with indications to follow up with her primary care physician and Cardiology for ongoing care. Additionally, she is advised that although her stress test is negative, if she has future episodes of chest pain she should return to the ER for evaluation. Status at Discharge Functional status at discharge: independent ambulation Overall status at discharge: patient is back to baseline Time Spent with Patient Time attestation: Total time spent providing and/or coordinating discharge services: Time spent: Less than 30 minutes Exam Narrative: GEN: NAD sitting up in bed spouse at her side HEENT: NCAT EOMI MMM Neck: no JVD ROM WNL CV: S1S2 RRR Lungs: CTA b/l Abd: soft NT ND DS: Data Data Completed and Pending Labs on day of discharge: Labs from last 24 hours 11/06/21 11/06/21 11/05/21 04:51 04:13 22:49 Sodium 137 Potassium 3.5 Chloride 104 Carbon Dioxide 27 Anion Gap 6 L BUN 17 Creatinine 0.50 L Estim Creat Clear Calc 82 Estimated GFR > 60 Glucose 42 L* POC Capillary Glucose 65 Calcium 8.8 Magnesium 2.1 Troponin I < 0.012 SARS-CoV-2 RNA (RT-PCR) 11/05/21 11/05/21 20:24 19:35 Sodium Potassium Chloride Carbon Dioxide Anion Gap BUN Creatinine Estim Creat Clear Calc Estimated GFR Glucose POC Capillary Glucose Calcium Magnesium Troponin I < 0.012 SARS-CoV-2 RNA (RT-PCR) Negative Discharge Plan Discharge Attending physician on discharge: Christina Glass Consulting providers: Wes Stevens ; Vargas Coon ; Esetfani See ; Leonard Winston ; Ze Wise V. ; Bettina Jones Discharging Clinician: Christina Glass Anticipated Discharge Date/Time: 11/06/21 18:57 Patient Disposition: Home, Self-Care Activity: as tolerated Diet: heart healt
== END 2021-11-06 19:25 | disposition home or self-care (01) ==
LOC: ANHED 19:07 → ANHICU 20:15
PROVIDERS: Physician Assistant; Admitting Provider Hospitalist; Emergency Provider Family Medicine; PCP Internal Medicine; Visit Provider Hospitalist
DX: R07.89 Other chest pain (principal); E10.40 Type 1 diabetes mellitus with diabetic neuropathy, unspecified; I10 Essential (primary) hypertension; E78.5 Hyperlipidemia, unspecified; G47.33 Obstructive sleep apnea (adult) (pediatric); Z79.4 Long term (current) use of insulin; Z96.41 Presence of insulin pump (external) (internal); Z20.822 Contact with and (suspected) exposure to COVID-19
CPT/HCPCS: 36415; 71046; 78452; 80048; 80053; 82948; 83690; 83735; 84484; 85025; 85610; 85730; 93005; 93017; 93306; 99285; A9270; A9502; C9803; G0378; J2785; U0003; U0005

== ENCOUNTER 2022-01-25 11:27 | Emergency (ER) | payer MEDICARE, OTHER, SELFPAY ==
[2022-01-25 11:40] VITALS: BP 127/54; PULSE 85; RESP 20; TEMP 36.6; O2SAT 98
--- NOTE | 2022-01-25 12:42 | ED.GENADULT ---
HPI - General Adult General Chief complaint: Upper Respiratory Infection Stated complaint: covid Source: patient Mode of arrival: ambulatory Limitations: no limitations History of Present Illness HPI narrative: Patient presents for evaluation of sick symptoms since yesterday. Symptoms include productive cough of yellow sputum, sinus congestion, sore throat, fatigue, chills, nausea, diarrhea. No fever, shortness of breath, chest pain, loss of sense of taste or smell. No recent sick contacts to her knowledge. No personal history of COVID. She has received 2 COVID vaccinations and a booster. She does not smoke. She is a type I diabetic. She has an insulin pump. Blood sugar currently is 170. No additional complaints or concerns Related Data Home Medications Medication Instructions Recorded Confirmed cholecalciferol (vitamin D3) 50 50 mcg PO DAILY 12/09/19 01/25/22 mcg (2,000 unit) tablet (Vitamin D3) atorvastatin 40 mg tablet 40 mg PO DAILY 04/29/21 01/25/22 flash glucose sensor (Biosensia 04/29/21 01/25/22 [employer] 14 Day Sensor kit) insulin pump controller 04/29/21 01/25/22 ipratropium bromide 21 mcg (0.03 2 spray intranasal TID 04/29/21 01/25/22 %) nasal spray multivitamin 1 tablet PO DAILY 04/29/21 01/25/22 insulin aspart U-100 100 unit/mL See Rx Instructions .Route .COMPLEX 06/13/21 01/25/22 (3 mL) subcutaneous pen (Novolog Flexpen U-100 Insulin aspart) lisinopril 20 1 tablet PO DAILY 06/13/21 01/25/22 mg-hydrochlorothiazide 25 mg tablet lisinopril 20 mg tablet 20 mg PO HS 11/05/21 01/25/22 amlodipine 10 mg tablet 10 mg PO DAILY 01/21/22 01/25/22 spironolactone 25 mg tablet 25 mg PO DAILY 01/21/22 01/25/22 insulin aspart U-100 100 unit/mL 60 unit subcut .PER INSULIN PUMP 01/25/22 01/25/22 subcutaneous solution (Novolog U-100 Insulin aspart) Allergies Allergy/AdvReac Type Severity Reaction Status Date / Time mold Allergy Unknown unk Verified 01/25/22 11:59 cat dander Allergy Other Verified 01/25/22 11:59 grass pollen Allergy Other Verified 01/25/22 11:59 weed pollen Allergy Other Verified 01/25/22 11:59 dust Allergy Other Uncoded 01/21/22 10:51 Review of Systems Review of Systems: CONSTITUTIONAL: Reports chills and fatigue. Denies fever or sweats. EYES: Denies visual changes, redness, or discharge. ENT:Reports sinus congestion and sore throat. CARDIOVASCULAR: Denies chest pain, palpitations, or edema. RESPIRATORY: Reports productive cough of yellow sputum. Denies dyspnea. GASTROINTESTINAL: Reports nausea and diarrhea. Denies abdominal pain and vomiting. GENITOURINARY: Denies dysuria or hematuria. SKIN: Denies rash or itching. MUSCULOSKELETAL: Denies back pain, joint pain, or myalgia. NEUROLOGIC: Denies headache, numbness, dizziness, or weakness. PSYCHIATRIC: Denies anxiety or depression. [facility] Past Medical History Medical History Allergies Currently receiving allergy shots. Arthritis Hypercholesterolemia Hypertension Obstructive sleep apnea Intolerant to CPAP. Currently being fitted for and mandibular advancement device. Type 1 diabetes mellitus Surgical History Surgical History History of 2 sections History of appendectomy History of cholecystectomy History of hysterectomy (2002) History of trigger finger Multiple, bilateral trigger finger releases. Family History Family History Sibling Diabetes mellitus Family history of kidney disease Mother Family history of osteoporosis Family history of mental disorder Family history of cardiovascular disease Family history of coronary artery disease Family history of congestive heart failure Family history of hearing loss Father Family history of cardiovascular disease Cerebrovascular accident Family history of chronic obstru
== END 2022-01-25 12:45 | disposition home or self-care (01) ==
PROVIDERS: Emergency Provider Nurse Practitioner; PCP Internal Medicine
DX: U07.1 COVID-19 (principal); M19.90 Unspecified osteoarthritis, unspecified site; E78.00 Pure hypercholesterolemia, unspecified; I10 Essential (primary) hypertension; G47.33 Obstructive sleep apnea (adult) (pediatric); E10.9 Type 1 diabetes mellitus without complications
CPT/HCPCS: 87426; 87804; 99213; C9803; G0463

== ENCOUNTER 2022-01-28 23:03 | Inpatient (IN) | payer MEDICARE, OTHER, SELFPAY ==
[2022-01-28 23:18] VITALS: BP 138/52; PULSE 93; RESP 18; TEMP 36.4; O2SAT 100
[2022-01-29 01:50] VITALS: BP 158/45; PULSE 89; RESP 12; O2SAT 99
--- NOTE | 2022-01-29 02:15 | ED.NAVMDI ---
HPI - Nausea/Vomiting/Diarrhea General Chief complaint: Nausea/Vomiting/Diarrhea Stated complaint: covid positive, vomiting Time Seen by Provider: 01/29/22 02:06 History of Present Illness HPI Narrative: 66-year-old female with history of type 1 diabetes presenting to the emergency department for evaluation of nausea vomiting. Patient states that she was diagnosed with COVID on Wednesday. Patient did have follow-up with her primary care physician and was started on and antiemetic and on Poxlovid. Patient states that she has had decreased p.o. intake secondary to the persistent nausea and vomiting. Patient did measure her ketones today and noticed they were elevated. Patient is concerned that she may be in ketoacidosis. Patient does have a insulin pump and she states that she has had to increase her basal rate in order to maintain adequate blood sugars. Related Data Home Medications Medication Instructions Recorded Confirmed cholecalciferol (vitamin D3) 50 50 mcg PO DAILY 12/09/19 01/25/22 mcg (2,000 unit) tablet (Vitamin D3) atorvastatin 40 mg tablet 40 mg PO DAILY 04/29/21 01/25/22 flash glucose sensor (FreeStyle 04/29/21 01/25/22 [employer] 14 Day Sensor kit) insulin pump controller 04/29/21 01/25/22 ipratropium bromide 21 mcg (0.03 2 spray intranasal TID 04/29/21 01/25/22 %) nasal spray multivitamin 1 tablet PO DAILY 04/29/21 01/25/22 insulin aspart U-100 100 unit/mL See Rx Instructions .Route .COMPLEX 06/13/21 01/25/22 (3 mL) subcutaneous pen (Novolog Flexpen U-100 Insulin aspart) lisinopril 20 1 tablet PO DAILY 06/13/21 01/25/22 mg-hydrochlorothiazide 25 mg tablet lisinopril 20 mg tablet 20 mg PO HS 11/05/21 01/25/22 amlodipine 10 mg tablet 10 mg PO DAILY 01/21/22 01/25/22 spironolactone 25 mg tablet 25 mg PO DAILY 01/21/22 01/25/22 insulin aspart U-100 100 unit/mL 60 unit subcut .PER INSULIN PUMP 01/25/22 01/25/22 subcutaneous solution (Novolog U-100 Insulin aspart) Allergies Allergy/AdvReac Type Severity Reaction Status Date / Time mold Allergy Unknown unk Verified 01/25/22 11:59 cat dander Allergy Other Verified 01/25/22 11:59 grass pollen Allergy Other Verified 01/25/22 11:59 weed pollen Allergy Other Verified 01/25/22 11:59 dust Allergy Other Uncoded 01/21/22 10:51 Review of Systems Review of Systems: CONSTITUTIONAL: Denies fever, chills, or sweats. EYES: Denies visual changes, redness, or discharge. ENT: Denies rhinorrhea, congestion, sore throat, or otalgia. CARDIOVASCULAR: Denies chest pain, palpitations, or edema. RESPIRATORY: Denies cough or dyspnea. GASTROINTESTINAL: See HPI GENITOURINARY: Denies dysuria or hematuria. SKIN: Denies rash or itching. MUSCULOSKELETAL: Denies back pain, joint pain, or myalgia. NEUROLOGIC: Denies headache, numbness, or weakness. [facility] Past Medical History Medical History Allergies Currently receiving allergy shots. Arthritis Hypercholesterolemia Hypertension Obstructive sleep apnea Intolerant to CPAP. Currently being fitted for and mandibular advancement device. Type 1 diabetes mellitus Surgical History Surgical History History of 2 sections History of appendectomy History of cholecystectomy History of hysterectomy (2002) History of trigger finger Multiple, bilateral trigger finger releases. Family History Family History Sibling Diabetes mellitus Family history of kidney disease Mother Family history of osteoporosis Family history of mental disorder Family history of cardiovascular disease Family history of coronary artery disease Family history of congestive heart failure Family history of hearing loss Father Family history of cardiovascular disease Cerebrovascular accident Family history of chronic obstructive pulmonary disease Diab
[2022-01-29 02:16] VITALS: BP 143/48; PULSE 92; RESP 19; O2SAT 97
[2022-01-29] MEDS: ONDANSETRON INJ 4 MG/2 ML VIAL IV PUSH ×4 (02:49→21:45)
[2022-01-29] MEDS: SODIUM CHLORIDE 0.9% IV 1,000 ML 999 ML IV CONT ×2 (02:49→04:13)
[2022-01-29] MEDS: METOCLOPRAMIDE HCL INJ 10 MG/2 ML VIAL IV PUSH (02:49)
[2022-01-29 03:10] LABS: Basophils Percent Auto 0.1 % (0.2-1.2); Hematocrit 37.7 % (37.0-47.0); Immature Granulocyte Absolute 0.08 K/mm3 (0.00-0.031); Immature Granulocyte Percent A 0.5 % (0-0.5); Lymphocytes Absolute Auto 1.35 K/mm3 (0.9-3.2); Lymphocytes Percent Auto 9.2 % (18.3-44.2); Mean Corpuscular HGB Conc 37.1 g/dl (32-36); Mean Corpuscular Hemoglobin 30.6 pg (26-34); Mean Corpuscular Volume 82.5 fl (80-100); Mean Platelet Volume 8.4 fl (7.4-10.4); Monocytes Absolute Auto 0.6 K/mm3 (0.1-0.6); Monocytes Percent Auto 4.2 % (2.6-8.5); Neutrophils Absolute Auto 12.7 K/mm3 (1.3-6.7); Platelet Count Result 265 k/mm3 (150-375); Red Blood Count 4.57 M/mm3 (4.2-5.4); Red Cell Distribution Width 11.5 % (11.5-14.5); White Blood Count 14.8 K/mm3 (4.5-10.0)
[2022-01-29 03:25] LABS: Lactic Acid Reflex 0.6 mmol/L (0.7-2.0)
[2022-01-29 03:36] LABS: Appearance Urine Clear (Clear); Bilirubin Urine 1+ (Negative); Blood Urine Trace-lysed (Negative); Color Urine Yellow (Yellow); Glucose Urine UA Negative (Negative); Ketones Urine 4+ mg/dL (Negative); Leukocyte Esterase Ur Negative LEU/UL (Negative); Nitrate Urine Negative (Negative); Protein Urine 1+ mg/dL (Negative); Specific Grav Ur 1.025 (1.001-1.035); Urobilinogen Urine 0.2 mg/dL (<2.0)
[2022-01-29 03:46] LABS: Bacteria Urine Trace /hpf; Mucus Urine Rare /lpf; Squamous Epithelial Cell Urine Rare /hpf (Few); WBC Urine 0-3 /hpf
[2022-01-29 03:50] LABS: Alanine Aminotransferase 36 U/L (6-35); Albumin Level 4.6 g/dL (3.5-5.1); Alkaline Phosphatase 64 U/L (38-126); Anion Gap 9 mmol/L (8-16); Aspartate Amino Transferase 37 U/L (14-36); Bilirubin,Total 0.6 mg/dL (0.2-1.3); Blood Urea Nitrogen 14 mg/dL (7-17); Calcium 8.8 mg/dL (8.4-10.2); Carbon Dioxide 21 mmol/L (22-30); Chloride 84 mmol/L (98-107); Estimated CRCL calculation 66 ml/min; Estimated Glomerular Filt Rate > 60; Glucose 175 mg/dL (65-110); Sodium 114 mmol/L (137-145)
[2022-01-29 03:55] LABS: Add Urine Microscopic? YES
--- NOTE | 2022-01-29 04:06 | ECG_ITS ---
Measurements Intervals [place] Rate: 99 P: 70 ID: 167 QRS: 59 QRSD: 82 T: 67 QT: 304 QTc: 391 Interpretive Statements SINUS RHYTHM POSSIBLE LEFT ATRIAL ENLARGEMENT [-0.1mV P-WAVE IN V1/V2] NONSPECIFIC ST & T-WAVE ABNORMALITY COMPARED TO ECG 11/05/2021 17:13:23 T-WAVE ABNORMALITY NOW PRESENT Electronically Signed On 01-29-2022 17:55:49 CDT by Bettina Jones M.D.
[2022-01-29 05:51] VITALS: BMI 28.7
--- NOTE | 2022-01-29 05:53 | ADMGEN ---
This patient, Pauline Young, was admitted to [facility] Room 302-01. Patient/family oriented to hospital policies and general routines including ID bracelet, bed and alarms, visiting hours, pain management, procedures, bathroom and other care routines, personal items, smoking policy, room service/diet, and visiting hours. Information on how to activate the Rapid Response Team has been discussed. Patient/Family are encouraged to report perceived risks to care and to ask questions if they do not understand what they are told or what they should do.
[2022-01-29 06:00] VITALS: BP 137/53; PULSE 92; RESP 16; TEMP 37.2; O2SAT 98
[2022-01-29] MEDS: SODIUM CHLORIDE 0.9% IV 1,000 ML 75 ML IV CONT ×3 (06:21→21:45)
--- NOTE | 2022-01-29 06:25 | PC.NURSE ---
Pt fluids still running when she went to the floor so not documented as complete by this RN
[2022-01-29 08:22] LABS: Glucose Point of Care 200 mg/dl (65-105)
[2022-01-29 10:05] LABS: Anion Gap 5 mmol/L (8-16); Blood Urea Nitrogen 9 mg/dL (7-17); Calcium 7.9 mg/dL (8.4-10.2); Carbon Dioxide 21 mmol/L (22-30); Chloride 94 mmol/L (98-107); Estimated CRCL calculation 81 ml/min; Estimated Glomerular Filt Rate > 60; Glucose 163 mg/dL (65-110); Potassium 4.8 mmol/L (3.4-5.0); Sodium 120 mmol/L (137-145)
[2022-01-29 11:38] LABS: Glucose Point of Care 153 mg/dl (65-105)
[2022-01-29] MEDS: ENOXAPARIN 40 MG/0.4 ML SYRINGE SUB-Q (12:34)
[2022-01-29] MEDS: IPRATROPIUM NASAL SPRAY 0.03% 15 ML BOTTLE 2 SPRAY NASAL ×2 (12:34→17:09)
[2022-01-29] MEDS: amLODIPine BESYLATE 5 MG TABLET 10 MG PO (12:34)
[2022-01-29] MEDS: ATORVASTATIN 40 MG TABLET PO (12:34)
[2022-01-29] MEDS: hydroCHLOROthiazide 25 MG TABLET PO (12:34)
[2022-01-29] MEDS: CHOLECALCIFEROL 1,000 UNITS TABLET 2000 UNITS PO (12:34)
[2022-01-29] MEDS: lisinopriL 20 MG TABLET PO (12:35)
--- NOTE | 2022-01-29 13:17 | PM.IMHP ---
H&P: HPI History of Present Illness Date/Time: 01/29/22 13:17 Chief Complaint: 66-year-old female with history of type 1 diabetes presenting to the emergency department for evaluation of nausea vomiting.? Patient states that she was diagnosed with COVID on Wednesday.? Patient did have follow-up with her primary care physician and was started on and antiemetic and on Poxlovid.? Patient states that she has had decreased p.o. intake secondary to the persistent nausea and vomiting.? Patient did measure her ketones today and noticed they were elevated.? Patient is concerned that she may be in ketoacidosis.? Patient does have a insulin pump and she states that she has had to increase her basal rate in order to maintain adequate blood sugars. Review of Systems Review of Systems: 10 point ROS negative except as stated in HPI / Subjective PMFSH Past Medical History Medical History Allergies Currently receiving allergy shots. Arthritis Hypercholesterolemia Hypertension Obstructive sleep apnea Intolerant to CPAP. Currently being fitted for and mandibular advancement device. Type 1 diabetes mellitus Surgical History Surgical History History of 2 sections History of appendectomy History of cholecystectomy History of hysterectomy (2002) History of trigger finger Multiple, bilateral trigger finger releases. Family History Family History Sibling Diabetes mellitus Family history of kidney disease Mother Family history of osteoporosis Family history of mental disorder Family history of cardiovascular disease Family history of coronary artery disease Family history of congestive heart failure Family history of hearing loss Father Family history of cardiovascular disease Cerebrovascular accident Family history of chronic obstructive pulmonary disease Diabetes mellitus Emphysema lung Sibling Heart disease End stage renal disease Valvular heart disease Other Hypertension Social History Social History Social History: Surrogate decision maker: Glen Ulisestanisha, spouse. Code status: Full code. Smoking status: Never smoker Second hand tobacco smoke exposure: Yes Alcohol intake: former Drinks per week: 1 Substance use: never Substance use type: does not use Additional living arrangements comments: The patient lives with her in [place]. Spiritual care concerns: No Meds Home Medications and Allergies Home Medications Medication Instructions Recorded Confirmed Type cholecalciferol (vitamin D3) 50 50 mcg PO DAILY 12/09/19 01/29/22 History mcg (2,000 unit) tablet (Vitamin D3) atorvastatin 40 mg tablet 40 mg PO DAILY 04/29/21 01/29/22 History ipratropium bromide 21 mcg (0.03 2 spray intranasal TID 04/29/21 01/29/22 History %) nasal spray multivitamin 1 tablet PO DAILY 04/29/21 01/29/22 History lisinopril 20 1 tablet PO DAILY 06/13/21 01/29/22 History mg-hydrochlorothiazide 25 mg tablet lisinopril 20 mg tablet 20 mg PO HS 11/05/21 01/29/22 History amlodipine 10 mg tablet 10 mg PO DAILY 01/21/22 01/29/22 History spironolactone 25 mg tablet 25 mg PO DAILY 01/21/22 01/29/22 History insulin aspart U-100 100 unit/mL 60 unit subcut .PER INSULIN PUMP 01/25/22 01/29/22 History subcutaneous solution (Novolog U-100 Insulin aspart) nirmatrelvir 300 mg (150 mg x See Rx Instructions PO .COMPLEX 01/25/22 01/29/22 Rx 2)-ritonavir 100 mg tablet (EUA) #30 tabs (Paxlovid 300 mg () ondansetron 4 mg disintegrating 4 mg PO Q4H PRN nausea and 01/25/22 01/29/22 Rx tablet vomiting #15 tabs Allergies Allergy/AdvReac Type Severity Reaction Status Date / Time mold Allergy Unknown unk Verified 01/25/22 11:59 cat dander Allergy Other Verified
[2022-01-29 14:00] VITALS: BP 104/52; PULSE 79; RESP 20; TEMP 36.9; O2SAT 98
--- NOTE | 2022-01-29 15:08 | PHAR ---
PT'S HOME MED PAXLOVID VERIFIED BY PHARMACY
[2022-01-29 17:06] LABS: Glucose Point of Care 114 mg/dl (65-105)
[2022-01-29 17:06] LABS: Glucose Point of Care 77 mg/dl (65-105)
[2022-01-29 18:13] LABS: Anion Gap 7 mmol/L (8-16); Blood Urea Nitrogen 10 mg/dL (7-17); Calcium 8.7 mg/dL (8.4-10.2); Carbon Dioxide 24 mmol/L (22-30); Chloride 96 mmol/L (98-107); Estimated CRCL calculation 69 ml/min; Estimated Glomerular Filt Rate > 60; Glucose 66 mg/dL (65-110); Potassium 4.4 mmol/L (3.4-5.0); Sodium 127 mmol/L (137-145)
[2022-01-29 20:38] VITALS: BP 121/52; PULSE 78; RESP 18; TEMP 37.2; O2SAT 97
[2022-01-29 21:38] LABS: Glucose Point of Care 128 mg/dl (65-105)
[2022-01-29 23:58] LABS: Anion Gap 3 mmol/L (8-16); Blood Urea Nitrogen 10 mg/dL (7-17); Calcium 8.4 mg/dL (8.4-10.2); Carbon Dioxide 25 mmol/L (22-30); Chloride 98 mmol/L (98-107); Estimated CRCL calculation 69 ml/min; Estimated Glomerular Filt Rate > 60; Glucose 102 mg/dL (65-110); Potassium 4.4 mmol/L (3.4-5.0); Sodium 126 mmol/L (137-145)
[2022-01-30 00:08] VITALS: BP 121/40; PULSE 70; RESP 16; TEMP 36.7; O2SAT 96
[2022-01-30 04:40] VITALS: BP 115/43; PULSE 60; RESP 18; TEMP 36.8; O2SAT 97
[2022-01-30 06:43] LABS: Hematocrit 34.8 % (37.0-47.0); Hemoglobin 12.1 g/dL (12.0-15.0); Mean Corpuscular HGB Conc 34.8 g/dl (32-36); Mean Corpuscular Hemoglobin 30.2 pg (26-34); Mean Corpuscular Volume 86.8 fl (80-100); Platelet Count Result 267 k/mm3 (150-375); Red Blood Count 4.01 M/mm3 (4.2-5.4); White Blood Count 8.8 K/mm3 (4.5-10.0)
--- NOTE | 2022-01-30 06:50 | PCDIET ---
Patient insulin pump worksheet filed in chart. Pt had a total of 34.25 units from [id number].
[2022-01-30 06:59] LABS: Anion Gap 5 mmol/L (8-16); Blood Urea Nitrogen 9 mg/dL (7-17); Calcium 8.3 mg/dL (8.4-10.2); Carbon Dioxide 25 mmol/L (22-30); Chloride 97 mmol/L (98-107); Estimated CRCL calculation 69 ml/min; Estimated Glomerular Filt Rate > 60; Glucose 130 mg/dL (65-110); Potassium 4.2 mmol/L (3.4-5.0); Sodium 127 mmol/L (137-145)
[2022-01-30 08:00] VITALS: O2SAT 98
[2022-01-30 08:38] LABS: Glucose Point of Care 129 mg/dl (65-105)
[2022-01-30] MEDS: CHOLECALCIFEROL 1,000 UNITS TABLET 2000 UNITS PO (09:36)
[2022-01-30] MEDS: IPRATROPIUM NASAL SPRAY 0.03% 15 ML BOTTLE 2 SPRAY NASAL ×2 (09:37→12:36)
--- NOTE | 2022-01-30 11:19 | PM.IMPN ---
Progress Note: A&P Assessment and Plan (1) COVID: Code(s): U07.1 - COVID-19 Status: Acute Assessment and Plan: Status post paxlovid Respiratory status is okay. Not Requiring oxygen. (2) Nausea vomiting and diarrhea: Code(s): R11.2 - Nausea with vomiting, unspecified; R19.7 - Diarrhea, unspecified Status: Acute Assessment and Plan: Likely secondary to above. Monitor. Other possibilities include paxlovid Now improved (3) Acute hyponatremia: Code(s): E87.1 - Hypo-osmolality and hyponatremia Status: Acute Assessment and Plan: Improved (4) Obstructive sleep apnea: Code(s): G47.33 - Obstructive sleep apnea (adult) (pediatric) Status: Acute (5) Hypertension: Code(s): I10 - Essential (primary) hypertension Status: Acute Assessment and Plan: Continue home meds (6) Type 1 diabetes mellitus: Code(s): E10.9 - Type 1 diabetes mellitus without complications Status: Acute Assessment and Plan: Patient is insulin pump. Blood sugars are currently controlled. (7) Dyslipidemia: Code(s): E78.5 - Hyperlipidemia, unspecified Status: Acute Assessment and Plan: Continue home meds Subjective Date/time seen: 01/30/22 11:19 Reports that her symptoms are improving. No nausea vomiting this morning Exam Narrative: General: alert and oriented Psych: appropriate mood nad affect Eyes: PERRLA Neck: Trachea midline, no new lesions Skin: no changes Lungs: CTA Cardiac: Normal S1,S2, no MGR ABD: soft, nd, nt, nbs Ext: no new lesions, no cce Vasc: Pulses intact Objective Data Vital Signs Vital Signs: Vital Signs - 24 hr 01/29/22 14:00 01/29/22 20:38 01/29/22 20:00 Temperature 98.5 F 99.0 F Pulse Rate 79 78 Respiratory Rate 20 18 Blood Pressure 104/52 L 121/52 L Pulse Oximetry 98 97 Oxygen Delivery Room Air 01/30/22 00:08 01/30/22 04:40 Temperature 98.1 F 98.3 F Pulse Rate 70 60 Respiratory Rate 16 18 Blood Pressure 121/40 L 115/43 L Pulse Oximetry 96 97 Oxygen Delivery Intake/Output Intake/Output: Intake & Output 01/27/22 01/28/22 01/29/22 07/01/22 23:59 23:59 23:59 23:59 Intake Total 3680 740 Balance 3680 740 Meds/Results Medications: Active Medications Generic Name Dose Route Start Last Admin Trade Name Freq PRN Reason Stop Dose Admin Amlodipine Besylate 10 mg 01/29/22 09:00 01/30/22 09:38 Amlodipine Besylate 5 Mg Tablet PO Not Given DAILY JOHN Atorvastatin Calcium 40 mg 01/29/22 09:00 01/30/22 09:38 Atorvastatin 40 Mg Tablet PO Not Given DAILY JOHN Dextrose 12.5 gm 01/29/22 04:01 Dextrose 50% 25 Gm/50 Ml Syringe IV PUSH PRN PRN Hypoglycemia Protocol Enoxaparin Sodium 40 mg 01/29/22 09:00 01/30/22 09:37 Enoxaparin 40 Mg/0.4 Ml Syringe SUB-Q Not Given DAILY JOHN Glucagon 1 mg 01/29/22 04:01 Glucagon For Inj 1 Mg Vial IM PRN PRN Hypoglycemia Protocol Glucose 15 gm 01/29/22 04:01 Glucose Oral Gel 15 Gm Of Glucse In 37.5 Gm Tube PO PRN PRN Hypoglycemia Protocol Hydrochlorothiazide 25 mg 01/29/22 09:00 01/29/22 12:34 Hydrochlorothiazide 25 Mg Tablet PO 02/28/22 08:59 25 mg DAILY JOHN Administration Sodium Chloride 1,000 mls @ 75 mls/hr 01/29/22 04:05 01/29/22 21:45 Normal Saline Iv IV CONT 75 mls/hr .[id number] JOHN Administration Dextrose 1,000 mls @ 100 mls/hr 01/29/22 04:01 Dextrose 5% 1,000 Ml IVPB PRN PRN Hypoglycemia Protocol Insulin Aspart 60 units 01/29/22 07:55 Insulin Aspart (*Bkc) 100 Units/Ml SUB-Q .PER INSULIN PUMP JOHN Ipratropium [place] 2 spray 01/29/22 09:00 01/30/22 09:37 Ipratropium Nasal [place] 0.03% 15 Ml Bottle NASAL 2 spray TID JOHN Administration Lisinopril 20 mg 01/29/22 21:00 01/29/22 22:16 Lisinopril 20 Mg Tablet PO Not Given HS JOHN Lisinopril 20 mg 01/29
[2022-01-30 12:04] LABS: Glucose Point of Care 199 mg/dl (65-105)
[2022-01-30] MEDS: ONDANSETRON INJ 4 MG/2 ML VIAL IV PUSH (12:40)
[2022-01-30] MEDS: SODIUM CHLORIDE 0.9% IV 1,000 ML 75 ML IV CONT (12:41)
[2022-01-30 16:00] VITALS: BP 118/47; PULSE 72; RESP 20; TEMP 36.8; O2SAT 97
[2022-01-30 16:42] LABS: Glucose Point of Care 171 mg/dl (65-105)
[2022-01-30] MEDS: lisinopriL 20 MG TABLET PO (20:13)
[2022-01-30 21:47] VITALS: BP 149/57; PULSE 78; RESP 16; TEMP 36.6; O2SAT 97
[2022-01-31 06:00] VITALS: BP 114/41; PULSE 80; RESP 16; TEMP 36.4; O2SAT 97
[2022-01-31 07:41] LABS: Glucose Point of Care 175 mg/dl (65-105)
[2022-01-31 08:00] VITALS: O2SAT 97
[2022-01-31] MEDS: IPRATROPIUM NASAL SPRAY 0.03% 15 ML BOTTLE 2 SPRAY NASAL (08:00)
[2022-01-31] MEDS: LORATADINE 5 MG TABLET PO (09:17)
[2022-01-31 11:32] LABS: Glucose Point of Care 199 mg/dl (65-105)
[2022-01-31 12:05] VITALS: BP 136/60; PULSE 82; RESP 20; TEMP 36.3; O2SAT 98
--- NOTE | 2022-01-31 12:21 | PM.DS ---
DS: Admitting Diagnosis Discharge Date January 31, 2022 Admitting Diagnosis COVID DS: Discharge Diagnosis Discharge Diagnosis (1) COVID: Code(s): U07.1 - COVID-19 Status: Acute Assessment and Plan: Admitted with COVID Status post paxlovid Respiratory status is okay. Never required oxygen. Most a GI complaints. Now improved. (2) Nausea vomiting and diarrhea: Code(s): R11.2 - Nausea with vomiting, unspecified; R19.7 - Diarrhea, unspecified Status: Acute Assessment and Plan: Now resolved (3) Acute hyponatremia: Code(s): E87.1 - Hypo-osmolality and hyponatremia Status: Acute Assessment and Plan: Improved Asymptomatic during hospitalization (4) Obstructive sleep apnea: Code(s): G47.33 - Obstructive sleep apnea (adult) (pediatric) Status: Acute Assessment and Plan: Chronic (5) Hypertension: Code(s): I10 - Essential (primary) hypertension Status: Acute Assessment and Plan: Continue home meds (6) Type 1 diabetes mellitus: Code(s): E10.9 - Type 1 diabetes mellitus without complications Status: Acute Assessment and Plan: Patient is insulin pump. Blood sugars are currently controlled. (7) Dyslipidemia: Code(s): E78.5 - Hyperlipidemia, unspecified Status: Acute Assessment and Plan: Continue home meds DS: Summary Hospital Course Hospital Course: See discharge plan and diagnoses Time Spent with Patient Time attestation: Total time spent providing and/or coordinating discharge services: Exam Narrative: General: alert and oriented Psych: appropriate mood nad affect Eyes: PERRLA Neck: Trachea midline, no new lesions Skin: no changes Lungs: CTA Cardiac: Normal S1,S2, no MGR ABD: soft, nd, nt, nbs Ext: no new lesions, no cce Vasc: Pulses intact DS: Data Data Completed and Pending Labs on day of discharge: Labs from last 24 hours 01/31/22 01/31/22 01/30/22 11:29 07:35 16:34 POC Capillary Glucose 199 H 175 H 171 H Discharge Plan Discharge Attending physician on discharge: Harman Trinh Discharging Clinician: Harman Trinh Patient Disposition: Home, Self-Care Activity: no preference Diet: as tolerated Patient Instructions: Antibiotic Form Stand Alone Forms: General Discharge Information Follow-up/Referrals: Stephan Hamilton MD [Primary Care Provider] - Discharge Medications: Continued insulin aspart U-100 [Novolog U-100 Insulin aspart] 100 unit/mL solution 60 unit subcut .PER INSULIN PUMP ondansetron 4 mg tablet,disintegrating 4 mg PO Q4H PRN (Reason: nausea and vomiting) Qty: 15 0RF Paxlovid (EUA) 150 mg x 2- 100 mg tablet See Rx Instructions .ROUTE .COMPLEX Qty: 30 0RF Rx Instructions: take TWO 150 mg tablets of nirmatrelvir with ONE 100 mg tablet of ritonavir twice daily for 5 days atorvastatin 40 mg tablet 40 mg PO DAILY multivitamin Tablet 1 tablet PO DAILY ipratropium bromide 21 mcg (0.03 %) spray,non-aerosol 2 spray intranasal TID Rx Instructions: administer into each nostril amlodipine 10 mg tablet 10 mg PO DAILY spironolactone 25 mg tablet 25 mg PO DAILY lisinopril 20 mg tablet 20 mg PO HS Rx Instructions: take along with the combination lisinopril/hctz cholecalciferol (vitamin D3) [Vitamin D3] 50 mcg (2,000 unit) Tablet 50 mcg PO DAILY lisinopril-hydrochlorothiazide 20-25 mg tablet 1 tablet PO DAILY Date of admission: 01/30/22 11:57 Primary Care Provider: Stephan Hamilton Admitting Provider: Sina Dennis V. Attending physician on admission: Sina Dennis V. Condition: Stable
== END 2022-01-31 13:25 | disposition home or self-care (01) | DRG 178 ==
LOC: ANHED 01-29 04:01 → ANH3MEDSUR 01-29 04:42
PROVIDERS: Admitting Provider Internal Medicine; Emergency Provider Emergency Medicine; PCP Internal Medicine; Visit Provider Chiropractor
DX: U07.1 COVID-19 (principal); E87.1 Hypo-osmolality and hyponatremia; G47.33 Obstructive sleep apnea (adult) (pediatric); I10 Essential (primary) hypertension; R11.2 Nausea with vomiting, unspecified; E10.9 Type 1 diabetes mellitus without complications; E78.5 Hyperlipidemia, unspecified; Z79.4 Long term (current) use of insulin; R19.7 Diarrhea, unspecified; Z96.41 Presence of insulin pump (external) (internal); Z79.899 Other long term (current) drug therapy; Z82.49 Family history of ischemic heart disease and other diseases of the circulatory system; Z83.3 Family history of diabetes mellitus
CPT/HCPCS: 36415; 80048; 80053; 81001; 82010; 82948; 83605; 85025; 85027; 93005; 96361; 96372; 96374; 96375; 99285; A9270; G0378; J1650; J2405; J2765; J7030

== ENCOUNTER 2022-03-17 08:00 | Outpatient (CLI) | payer MEDICARE, OTHER, SELFPAY ==
--- NOTE | 2022-04-13 09:28 | WPDSLEEPSTUD ---
Sleep Study Date of Study: 03/17/22 Ordering Provider: Dameon Mahan APRN Interpreting Physician: Kylah Pantoja MD Sleep Study Type: Polysomnogram Height: 1.55 m Weight: 67.132 kg Body Mass Index: 27.9 Neck Circumference (inches): 13.5 [place]: 5 Reason for Sleep Study Obstructive sleep apnea, now using a mandibular advancement device Sleep History Pauline Young is A 66-year-old female with a history of sleep apnea AHI is 8.8, severe in the supine position AHI is 64. She also has nasal problems with nasal collapse, rhinitis, allergies, she was unable to tolerate CPAP mask. She had difficulty tolerating a mandibular advancement device due to comfort and she switched to a new device. she is having a sleep study to titrate the new device. She had a CPAP titration May 21, 2021. Complaints at that time included loud snoring and witnessed apnea. She had daytime fatigue with desire to nap. Due to her nasal problems she always has trouble sleeping with a cold. She does not fall asleep involuntarily during the day, does not have loss of muscle tone with strong emotion or the feeling of paralysis on waking or falling asleep. She occasionally had vivid dreamlike scenes upon awakening or falling asleep. She had rare nightmares. She complained of muscle cramps at night. Normal bedtime 10:00 p.m. falling asleep quickly, with reports of waking once at night to urinate and bloe her nose around 5:00 a.m. she reported taking an occasional nap. [facility] Past Medical History Medical History (Updated 04/13/22 @ 09:50 by Kylah Pantoja MD) Allergies Currently receiving allergy shots. Arthritis Hypercholesterolemia Hypertension Obstructive sleep apnea Intolerant to CPAP. Type 1 diabetes mellitus Surgical History Surgical History History of 2 sections History of appendectomy History of cholecystectomy History of hysterectomy (2002) History of trigger finger Multiple, bilateral trigger finger releases. Family History Family History Sibling Diabetes mellitus Family history of kidney disease Mother Family history of osteoporosis Family history of mental disorder Family history of cardiovascular disease Family history of coronary artery disease Family history of congestive heart failure Family history of hearing loss Father Family history of cardiovascular disease Cerebrovascular accident Family history of chronic obstructive pulmonary disease Diabetes mellitus Emphysema lung Sibling Heart disease End stage renal disease Valvular heart disease Other Hypertension Social History Social History Social History: Surrogate decision maker: Glen Young, spouse. Code status: Full code. Smoking status: Never smoker Second hand tobacco smoke exposure: Yes Alcohol intake: former Drinks per week: 1 Substance use: never Substance use type: does not use Additional living arrangements comments: The patient lives with her in [place]. Spiritual care concerns: No Medications Home Medications Medication Instructions Recorded Confirmed Type cholecalciferol (vitamin D3) 50 50 mcg PO DAILY 12/09/19 04/10/22 History mcg (2,000 unit) tablet (Vitamin D3) atorvastatin 40 mg tablet 40 mg PO DAILY 04/29/21 04/10/22 History ipratropium bromide 21 mcg (0.03 2 spray intranasal TID 04/29/21 04/10/22 History %) nasal spray multivitamin 1 tablet PO DAILY 04/29/21 04/10/22 History amlodipine 10 mg tablet 10 mg PO DAILY 01/21/22 04/10/22 History insulin aspart U-100 100 unit/mL 60 unit subcut .PER INSULIN PUMP 01/25/22 04/10/22 History subcutaneous solution (Novolog U-100 Insulin aspart) hydrochlorothiazide 25 mg tablet 25 mg PO DAILY #90 tabs 02/10/22 04/10/22 Rx lisinopril 40 mg tablet 40
[2022-04-13 11:21] VITALS: BMI 27.9
== END 2022-03-18 11:24 | disposition home or self-care (01) ==
PROVIDERS: PCP Internal Medicine; Visit Provider Nurse Practitioner Family
DX: G47.33 Obstructive sleep apnea (adult) (pediatric) (principal)
CPT/HCPCS: 95810

== ENCOUNTER 2022-03-22 10:11 | Emergency (ER) | payer MEDICARE, OTHER, SELFPAY ==
--- NOTE | ~2022-03-22 | CT_ITS ---
EXAMINATION: CT abdomen pelvis w con DATE: 03/22/2022 12:23 INDICATION: Left lower quadrant abdominal pain. Diarrhea. TECHNIQUE: Computed tomography (CT) of the abdomen and pelvis was performed with 100 mL Omnipaque 350 intravenous contrast. Automated exposure control and iterative reconstruction technique were employe d. The dose-length product was 340.44 mGy-cm. COMPARISON: CT abdomen and pelvis 07/12/2021 FINDINGS: The visualized portions of the lung bases demonstrate mild atelectasis. No pleural effusion . The heart size is normal. There are coronary artery calcifications. No pericardial effusion. The li abigail and spleen are normal. There are changes of cholecystectomy. The pancreas, adrenal glands, and ki dneys are normal. There are no dilated loops of bowel. The appendix is normal. There is liquid stool in the colon correlating with the symptom of diarrhea. There are no pathologically enlarged lymph nod es. There is no free intraperitoneal fluid. There is mild lumbar spondylosis. IMPRESSION: 1. No etiology for the patient's symptoms. Reviewed, dictated and finalized at location A.
[2022-03-22 10:13] VITALS: BP 131/52; PULSE 77; RESP 14; TEMP 36.7; O2SAT 99
[2022-03-22 11:11] LABS: Basophils Percent Auto 0.1 % (0.2-1.2); Eosinophils Percent Auto 0.3 % (0-4.4); Hematocrit 38.1 % (37.0-47.0); Hemoglobin 12.7 g/dL (12.0-15.0); Immature Granulocyte Absolute 0.02 K/mm3 (0.00-0.031); Immature Granulocyte Percent A 0.3 % (0-0.5); Lymphocytes Absolute Auto 1.23 K/mm3 (0.9-3.2); Lymphocytes Percent Auto 18.3 % (18.3-44.2); Mean Corpuscular HGB Conc 33.3 g/dl (32-36); Mean Corpuscular Hemoglobin 29.7 pg (26-34); Mean Corpuscular Volume 89.2 fl (80-100); Monocytes Absolute Auto 0.9 K/mm3 (0.1-0.6); Monocytes Percent Auto 13.1 % (2.6-8.5); Neutrophils Absolute Auto 4.6 K/mm3 (1.3-6.7); Neutrophils Percent Auto 67.9 % (45.5-73.1); Platelet Count Result 233 k/mm3 (150-375); Red Blood Count 4.27 M/mm3 (4.2-5.4); Red Cell Distribution Width 12.7 % (11.5-14.5); White Blood Count 6.7 K/mm3 (4.5-10.0)
--- NOTE | 2022-03-22 11:17 | ED.ABDPAIN ---
HPI - Abdominal Pain General Chief Complaint: Abdominal Pain Stated Complaint: ABD pain Time Seen by Provider: 03/22/22 11:03 Source: patient Mode of arrival: ambulatory Limitations: no limitations History of Present Illness HPI narrative: Patient is a 66-year-old female who presents the ED with report of lower abdominal pain. Patient reports having pain for the past 2 days. She has a history of diverticulosis, confirmed by colonoscopy, but states she has never had an episode of diverticulitis. She also reports having several episodes of diarrhea for the past 2 days, denies any rectal bleeding. Occasional nausea, but no vomiting. Chills, but no fever. No urinary symptoms. Has not taken anything for pain. Related Data Home Medications Medication Instructions Recorded Confirmed cholecalciferol (vitamin D3) 50 50 mcg PO DAILY 12/09/19 02/23/22 mcg (2,000 unit) tablet (Vitamin D3) atorvastatin 40 mg tablet 40 mg PO DAILY 04/29/21 02/23/22 ipratropium bromide 21 mcg (0.03 2 spray intranasal TID 04/29/21 02/23/22 %) nasal spray multivitamin 1 tablet PO DAILY 04/29/21 02/23/22 amlodipine 10 mg tablet 10 mg PO DAILY 01/21/22 02/23/22 spironolactone 25 mg tablet 25 mg PO DAILY 01/21/22 02/23/22 insulin aspart U-100 100 unit/mL 60 unit subcut .PER INSULIN PUMP 01/25/22 02/23/22 subcutaneous solution (Novolog U-100 Insulin aspart) Allergies Allergy/AdvReac Type Severity Reaction Status Date / Time mold Allergy Unknown unk Verified 02/23/22 10:34 cat dander Allergy Other Verified 02/23/22 10:34 grass pollen Allergy Other Verified 02/23/22 10:34 weed pollen Allergy Other Verified 02/23/22 10:34 dust Allergy Other Uncoded 02/23/22 10:34 Review of Systems Review of Systems: CONSTITUTIONAL: Reports chills. Denies fever. GASTROINTESTINAL: Reports lower abdominal pain, diarrhea, nausea. Denies vomiting. GENITOURINARY: Denies dysuria or hematuria. All systems reviewed & are unremarkable except as noted in HPI and below PMFSH Past Medical History Medical History Allergies Currently receiving allergy shots. Arthritis Hypercholesterolemia Hypertension Obstructive sleep apnea Intolerant to CPAP. Currently being fitted for and mandibular advancement device. Type 1 diabetes mellitus Surgical History Surgical History History of 2 sections History of appendectomy History of cholecystectomy History of hysterectomy (2002) History of trigger finger Multiple, bilateral trigger finger releases. Family History Family History Sibling Diabetes mellitus Family history of kidney disease Mother Family history of osteoporosis Family history of mental disorder Family history of cardiovascular disease Family history of coronary artery disease Family history of congestive heart failure Family history of hearing loss Father Family history of cardiovascular disease Cerebrovascular accident Family history of chronic obstructive pulmonary disease Diabetes mellitus Emphysema lung Sibling Heart disease End stage renal disease Valvular heart disease Other Hypertension Social History Social History Social History: Surrogate decision maker: Glengil Young, spouse. Code status: Full code. Smoking status: Never smoker Second hand tobacco smoke exposure: Yes Alcohol intake: former Drinks per week: 1 Substance use: never Substance use type: does not use Additional living arrangements comments: The patient lives with her in [place]. Spiritual care concerns: No Exam Narrative: GENERAL: Well appearing, well-nourished, non-toxic, in no acute distress. HEAD: Normocephalic, atraumatic. NECK: Supple. No adenopathy, no masses. RESPIRATO
[2022-03-22 11:25] LABS: Alanine Aminotransferase 48 U/L (6-35); Albumin Level 4.5 g/dL (3.5-5.1); Alkaline Phosphatase 74 U/L (38-126); Anion Gap 11 mmol/L (8-16); Aspartate Amino Transferase 59 U/L (14-36); Bilirubin,Total 0.3 mg/dL (0.2-1.3); Blood Urea Nitrogen 9 mg/dL (7-17); Calcium 9.1 mg/dL (8.4-10.2); Carbon Dioxide 23 mmol/L (22-30); Chloride 97 mmol/L (98-107); Estimated CRCL calculation 79 ml/min; Estimated Glomerular Filt Rate > 60; Glucose 180 mg/dL (65-110); Lipase 44 U/L (23-300); Potassium 3.9 mmol/L (3.4-5.0); Sodium 131 mmol/L (137-145)
[2022-03-22] MEDS: SODIUM CHLORIDE 0.9% IV 1,000 ML 999 ML IV CONT (11:46)
[2022-03-22 11:47] VITALS: BP 133/53; PULSE 75; RESP 16; O2SAT 99
[2022-03-22 12:05] LABS: Appearance Urine Clear (Clear); Bilirubin Urine Negative (Negative); Color Urine Yellow (Yellow); Glucose Urine UA Negative (Negative); Ketones Urine 1+ mg/dL (Negative); Leukocyte Esterase Ur Negative LEU/UL (Negative); Nitrate Urine Negative (Negative); Protein Urine Negative (Negative); Specific Grav Ur 1.015 (1.001-1.035); Urobilinogen Urine 0.2 mg/dL (<2.0)
[2022-03-22 12:09] LABS: Add Urine Microscopic? YES; Blood Urine Trace-Intact (Negative); RBC Urine 0-2 /hpf (0-2); Squamous Epithelial Cell Urine Rare /hpf (Few)
== END 2022-03-22 14:56 | disposition home or self-care (01) ==
PROVIDERS: Emergency Provider Emergency Medicine; PCP Internal Medicine
DX: R10.30 Lower abdominal pain, unspecified (principal); I10 Essential (primary) hypertension; E78.00 Pure hypercholesterolemia, unspecified; E10.8 Type 1 diabetes mellitus with unspecified complications; M19.90 Unspecified osteoarthritis, unspecified site; G47.33 Obstructive sleep apnea (adult) (pediatric); Z79.4 Long term (current) use of insulin
CPT/HCPCS: 36415; 74177; 80053; 81001; 83690; 85025; 96361; 96365; 99284; J0131; J7030; Q9967

== ENCOUNTER 2022-08-17 13:05 | Outpatient (CLI) | payer MEDICARE, OTHER, SELFPAY ==
[2022-08-17 14:08] LABS: Anion Gap 5 mmol/L (8-16); Blood Urea Nitrogen 18 mg/dL (7-17); Calcium 9.4 mg/dL (8.4-10.2); Carbon Dioxide 27 mmol/L (22-30); Chloride 104 mmol/L (98-107); Estimated Glomerular Filt Rate > 60; Glucose 113 mg/dL (65-110); Potassium 4.1 mmol/L (3.4-5.0); Sodium 136 mmol/L (137-145)
== END 2022-08-17 13:06 | disposition home or self-care (01) ==
LOC: ANHSURGERY 13:10
PROVIDERS: Anesthesiology; PCP Nurse Practitioner; Visit Provider Podiatrist Foot & Ankle Surgery
DX: E10.9 Type 1 diabetes mellitus without complications (principal)
CPT/HCPCS: 36415; 80048

== ENCOUNTER 2022-08-21 00:52 | Day surgery (SDC) | payer MEDICARE, OTHER, SELFPAY ==
--- NOTE | 2022-08-14 15:35 | PC.NURSE ---
Report to the Outpatient Waiting Room, entrance under the green pavilion located off [facility], at time _0630_ on date _08/21/22_. Planned Procedure Time: _0830_. Time changes happen often and if your time is changed the preop area will call you the afternoon before. - You and your visitor will be asked to self-screen and do not enter if you have any COVID symptoms. - Only one visitor is requested with a max of two and NO children visitors are allowed at this time. - The patient visitor may be requested to leave or wait in car when not with patient due to distancing restrictions. - A mask is optional within the hospital. Patients may have clear liquids (water, carbonated beverages, clear teas, apple juice) until 3 hours prior to surgery with a maximum of 20 ounces. - No food from midnight until time of surgery Take the following medications with a SIP of water the morning of surgery: _AMLODIPINE_ Medications to discontinue per ANESTHESIA - _MULTIVITAMIN 3 DAYS PRIOR TO SURGERY, Date to take last dose 08/17/22_ Please no make-up, nail colombian, hairspray, perfume, deodorant, or body powder the day of surgery. No jewelry (including any body piercings) or valuables the day of surgery, leave them at home. Please take a shower or bath the night before, or the morning of, surgery with an antibacterial soap. Wear comfortable, loose fitting clothing. - Jewelry must be removed prior to entering the operating room. Rings and piercings that are not removed may be cut off. - The hospital will not accept responsibility for valuables. - Please leave all valuables, including medications, at home the day of surgery. If you are going home after surgery, a licensed port cdl a driver must drive you home. - NO public transportation without another adult if you receive anesthesia. - We recommend that an adult stay with you for 24 hours following discharge. - We also recommend that you do not drive, make important decision, drink alcoholic beverages, or take any drugs that were not prescribed by your health care provider for at least 24 hours after your discharge time. Follow any additional instructions given to you from your surgeon. If you or anyone in your household have experienced Covid symptoms in the past week, please notify your surgeon or the nurse liaison at the phone number below for possible testing. Telephone instructions given to _PATIENT_and asked if any additional questions and then verbalized understanding. Patient advised to call surgeon office or pre surgery nurse liaison [phone] if any additional questions.
[2022-08-14 15:40] VITALS: BMI 27.0
[2022-08-21 06:54] VITALS: BP 130/50; PULSE 74; RESP 16; TEMP 36.7; O2SAT 100
--- NOTE | 2022-08-21 07:12 | WPDHPUPDATE1 ---
History and Physical Update Update Date/Time: 08/21/22 07:12 History and Physical has been reviewed, including an updated exam of the patient. There are NO changes in the patient's condition. Risks, benefits, and alternatives have been discussed and questions answered. Patient agrees to proceed with procedure.
[2022-08-21 07:17] LABS: Glucose Point of Care 82 mg/dl (65-105)
[2022-08-21] MEDS: LACTATED RINGERS 1,000 ML 30 ML IV CONT (07:20)
[2022-08-21] MEDS: DEXTROSE 50% 25 GM/50 ML SYRINGE 6.25 GM IV PUSH (07:25)
--- NOTE | 2022-08-21 07:36 | SUR.PREOP ---
Patient wearing insulin pump and it's telling her the blood sugar levels are falling. My check was 82. Discussed with Dr Jain and gave IV dextrose instead of the apple juice the patient was requesting.
--- NOTE | 2022-08-21 07:48 | WPDANESEPPF ---
Anes - Initial Pre Proc Eval Procedure: Operation Date: 08/21/22 08:30 Proposed Procedures p Partial Plantar Fasciectomy Left Foot - Sarabjit Zamudio JR, MD Date/Time: 08/21/22 07:48 Surgeon: Sarabjit Zamudio JR, MD Pre Op Diagnosis: Plantar Fasciitis Left Foot Patient Data Age: 66 Gender: F Height: 1.56 m Weight: 65.9 kg Last Vital Signs Temp 36.7 C 08/21/22 06:54 Pulse 74 08/21/22 06:54 Resp 16 08/21/22 06:54 BP 130/50 L 08/21/22 06:54 Pulse Ox 100 08/21/22 06:54 O2 Del Method Room Air 08/21/22 06:54 Allergies Allergy/AdvReac Type Severity Reaction Status Date / Time mold Allergy Unknown unk Verified 08/21/22 06:45 cat dander Allergy Other Verified 08/21/22 06:45 grass pollen Allergy Other Verified 08/21/22 06:45 weed pollen Allergy Other Verified 08/21/22 06:45 dust Allergy Other Uncoded 08/21/22 06:45 Home Medications Medication Instructions Recorded Confirmed Type cholecalciferol (vitamin D3) 50 50 mcg PO DAILY 12/09/19 08/14/22 History mcg (2,000 unit) tablet (Vitamin D3) atorvastatin 40 mg tablet 40 mg PO DAILY 04/29/21 08/14/22 History ipratropium bromide 21 mcg (0.03 2 spray intranasal TID CONGESTION 04/29/21 08/14/22 History %) nasal spray multivitamin 1 tablet PO DAILY 04/29/21 08/14/22 History amlodipine 10 mg tablet 10 mg PO DAILY 01/21/22 08/14/22 History insulin aspart U-100 100 unit/mL See Rx Instructions .Route .COMPLEX 01/25/22 08/14/22 History subcutaneous solution (Novolog U-100 Insulin aspart) lisinopril 40 mg tablet 40 mg PO DAILY #90 tabs 04/13/22 08/14/22 Rx hydrochlorothiazide 25 mg tablet 25 mg PO DAILY #90 tabs 08/10/22 08/14/22 Rx levocetirizine 5 mg tablet (Xyzal) 5 mg PO DAILY PRN Congestion 08/14/22 08/14/22 History Laboratory Tests 08/21/22 07:14 POC Capillary Glucose 82 mg/dl mg/dl (65-105) Patient hx anesthesia problems: none Family hx anesthesia problems: none Results Review: All pre-operative results and documents have been reviewed as part of the pre-operative evaluation. [facility] Past Medical History Medical History Allergies Currently receiving allergy shots. Arthritis Bilateral hip pain Fall Hypercholesterolemia Hypertension Lumbar spine pain Obstructive sleep apnea Intolerant to CPAP. Pelvic pain Type 1 diabetes mellitus Surgical History Surgical History History of 2 sections History of appendectomy History of cholecystectomy History of hysterectomy (2002) History of trigger finger Multiple, bilateral trigger finger releases. Family History Family History Sibling Diabetes mellitus Family history of kidney disease Mother Family history of osteoporosis Family history of mental disorder Family history of cardiovascular disease Family history of coronary artery disease Family history of congestive heart failure Family history of hearing loss Father Family history of cardiovascular disease Cerebrovascular accident Family history of chronic obstructive pulmonary disease Diabetes mellitus Emphysema lung Sibling Heart disease End stage renal disease Valvular heart disease Other Hypertension Social History Social History Social History: Surrogate decision maker: Glen Young, spouse. Code status: Full code. Smoking status: Never smoker Second hand tobacco smoke exposure: No Alcohol intake: current Drinks per week: 1 Alcohol use details: 3 GLASSES WINE/MONTH Substance use: never Substance use type: does not use Living arrangements: with family Additional living arrangements comments: The patient lives with her in [place]. Occupation/Education: occupation Spiritual care concerns: No Anes - Ev
[2022-08-21] MEDS: ceFAZolin 2 GM/D5W 50 ML 2 GM/50 ML BAG IVPB (08:12)
[2022-08-21] MEDS: LIDOCAINE HCL 2% PF INJ 5 ML VIAL 10 ML INFILTRATE (08:31)
[2022-08-21] MEDS: BUPIVACAINE HCL 0.5% PF 30 ML VIAL INFILTRATE (08:32)
--- NOTE | 2022-08-21 08:51 | W.PM.PROC2 ---
Procedure Note - Detailed Date of Procedure 08/21/22 Pre-op Diagnosis Plantar Fasciitis Left Foot Post-op Diagnosis Same Procedure Performed Partial plantar fasciectomy left foot Surgeon Sarabjit Zamudio JR, [place] Anesthesia MAC and Local Indications Recalcitrant left inferior heel pain Description of Procedure Under mild sedation, the patient was brought in to the operating room, placed on the operating table in the supine position. A pneumatic ankle tourniquet was placed about the patient's ankle. Following general anesthesia, local anesthesia was obtained about the affected lower extremity utilizing 20 mL of a one to mix of 2% Lidocaine plain and 0.5% Marcaine plain to the tibial nerve. The foot was then scrubbed, prepped, and draped in the usual aseptic manner. An Esmarch bandage was then used to exsanguinate the patient's foot and the pneumatic ankle tourniquet was then inflated. Next, an incision was made starting distal to the medial tubercle of the calcaneus extending distally 3cm. All bleeders were cauterized as necessary. Next the dissection was continued down to the plantar fascia it was exposed medially and laterally with [employer] [place] retractors. Two thirds of the medial plantar fascia was transected and a 4mm portion was also cut and discarded. The wound site was flushed with sterile saline. The deep subcutaneous tissue was reapproximated with 3.0 Vicryl and the skin was reapproximated with 2.0 Prolene and 3.0 Prolene in Vertical mattress and Simple interrupted suture technique. Upon completion of the procedure, the plantar incision was dressed with adaptic, 4x4 gauze, kerlix and coban. The pneumatic ankle tourniquet was then deflated and a prompt hyperemic response was noted to all digits of the affected foot. A CAM Walker boot was then applied. The patient did very well with the procedure and the anesthesia. The patient was transferred to the recovery room with vital signs stable and vascular status intact to all toes of the affected foot. Following a period of postoperative monitoring, the patient will be discharged home on the following written and oral postoperative instructions: 1. The patient should keep the dressing clean, dry, and intact. Use a cast protector bag with showers. 2. The patient will be strictly protected weight bearing with CAM walker boot. 3. Patient should ice and elevate the affected foot when at rest. 4. The patient is to contact Dr. Zamudio for all postop care and if any problems arise. 5. Prescriptions were written for Percocet 5/325 dispensed 40 to be taken 1 p.o. q.4-6 hours as needed for severe pain. Estimated Blood Loss 1 Drains No Packing No Pathology None sent Complications No immediate complications Condition Stable Disposition Same day
[2022-08-21 08:53] VITALS: BP 116/48; PULSE 63; RESP 18; O2SAT 94
[2022-08-21 09:08] LABS: Glucose Point of Care 122 mg/dl (65-105)
[2022-08-21 09:20] VITALS: BP 120/52; PULSE 60; RESP 18; O2SAT 95
[2022-08-21 09:50] VITALS: BP 100/37; PULSE 53; RESP 18
[2022-08-21 10:20] VITALS: BP 132/55; PULSE 55; RESP 18
== END 2022-08-21 10:40 | disposition home or self-care (01) ==
PROVIDERS: PCP Nurse Practitioner; Visit Provider Podiatrist Foot & Ankle Surgery
PROC: (CPT 28119; principal; 2022-08-21 08:30)
DX: M72.2 Plantar fascial fibromatosis (principal); I10 Essential (primary) hypertension; E78.00 Pure hypercholesterolemia, unspecified; G47.33 Obstructive sleep apnea (adult) (pediatric); E10.9 Type 1 diabetes mellitus without complications; Z79.4 Long term (current) use of insulin
CPT/HCPCS: 28060; 82948; J0690; J2704; J3010; J7120

== ENCOUNTER 2022-08-22 11:51 | Emergency (ER) | payer MEDICARE, OTHER, SELFPAY ==
[2022-08-22 11:55] VITALS: BP 147/51; PULSE 78; RESP 18; TEMP 36.6; O2SAT 97
--- NOTE | 2022-08-22 12:58 | ED.NAVMDI ---
HPI - Nausea/Vomiting/Diarrhea General Chief complaint: Nausea/Vomiting/Diarrhea Stated complaint: N/V post surgery 24 hrs ago Time Seen by Provider: 08/22/22 12:56 History of Present Illness HPI Narrative: Patient is a 66-year-old female with a history of type 1 diabetes presenting with nausea and vomiting. Patient states that she had a plantar fasciitis release surgery yesterday morning. She went home and took 1 Percocet yesterday for pain control. States that she was able to go to bed normally. She then developed vomiting early in the morning and has been unable to keep anything down since. States that she is concerned that she may be dehydrated and is concerned about her sugars that she has a type I diabetic. States that they did not send her home with any antiemetics. States that the pain in her foot is pretty well controlled. She denies fevers or chills, chest pain, abdominal pain, shortness of breath. Related Data Home Medications Medication Instructions Recorded Confirmed cholecalciferol (vitamin D3) 50 50 mcg PO DAILY 12/09/19 08/14/22 mcg (2,000 unit) tablet (Vitamin D3) atorvastatin 40 mg tablet 40 mg PO DAILY 04/29/21 08/14/22 ipratropium bromide 21 mcg (0.03 2 spray intranasal TID CONGESTION 04/29/21 08/14/22 %) nasal spray multivitamin 1 tablet PO DAILY 04/29/21 08/14/22 amlodipine 10 mg tablet 10 mg PO DAILY 01/21/22 08/14/22 insulin aspart U-100 100 unit/mL See Rx Instructions .Route .COMPLEX 01/25/22 08/14/22 subcutaneous solution (Novolog U-100 Insulin aspart) levocetirizine 5 mg tablet (Xyzal) 5 mg PO DAILY PRN Congestion 08/14/22 08/14/22 Allergies Allergy/AdvReac Type Severity Reaction Status Date / Time mold Allergy Unknown unk Verified 08/22/22 13:02 cat dander Allergy Other Verified 08/22/22 13:02 grass pollen Allergy Other Verified 08/22/22 13:02 weed pollen Allergy Other Verified 08/22/22 13:02 dust Allergy Other Uncoded 08/22/22 13:02 Review of Systems Review of Systems: All systems reviewed & are unremarkable except as noted in HPI and below PMFSH Past Medical History Medical History Allergies Currently receiving allergy shots. Arthritis Bilateral hip pain Fall Hypercholesterolemia Hypertension Lumbar spine pain Obstructive sleep apnea Intolerant to CPAP. Pelvic pain Type 1 diabetes mellitus Surgical History Surgical History History of 2 sections History of appendectomy History of cholecystectomy History of hysterectomy (2002) History of trigger finger Multiple, bilateral trigger finger releases. Family History Family History Sibling Diabetes mellitus Family history of kidney disease Mother Family history of osteoporosis Family history of mental disorder Family history of cardiovascular disease Family history of coronary artery disease Family history of congestive heart failure Family history of hearing loss Father Family history of cardiovascular disease Cerebrovascular accident Family history of chronic obstructive pulmonary disease Diabetes mellitus Emphysema lung Sibling Heart disease End stage renal disease Valvular heart disease Other Hypertension Social History Social History Social History: Surrogate decision maker: Glen Hannah, spouse. Code status: Full code. Smoking status: Never smoker Second hand tobacco smoke exposure: No Alcohol intake: current Drinks per week: 1 Alcohol use details: 3 GLASSES WINE/MONTH Substance use: never Substance use type: does not use Living arrangements: with family Additional living arrangements comments: The patient lives with her in [place]. Occupation/Education: occupation Spiritual care concerns: No Exam Narrat
[2022-08-22] MEDS: ONDANSETRON INJ 4 MG/2 ML VIAL IV PUSH (13:32)
[2022-08-22] MEDS: SODIUM CHLORIDE 0.9% IV 1,000 ML 999 ML IV CONT (13:32)
[2022-08-22 13:36] VITALS: BP 134/64; PULSE 75; RESP 18; O2SAT 100
[2022-08-22 13:37] LABS: Basophils Percent Auto 0.2 % (0.2-1.2); Eosinophils Percent Auto 0.1 % (0-4.4); Hematocrit 41.1 % (37.0-47.0); Hemoglobin 13.7 g/dL (12.0-15.0); Immature Granulocyte Absolute 0.04 K/mm3 (0.00-0.031); Immature Granulocyte Percent A 0.3 % (0-0.5); Lymphocytes Absolute Auto 0.93 K/mm3 (0.9-3.2); Lymphocytes Percent Auto 7.3 % (18.3-44.2); Mean Corpuscular HGB Conc 33.3 g/dl (32-36); Mean Corpuscular Hemoglobin 29.9 pg (26-34); Mean Corpuscular Volume 89.7 fl (80-100); Mean Platelet Volume 9.2 fl (7.4-10.4); Monocytes Absolute Auto 0.4 K/mm3 (0.1-0.6); Monocytes Percent Auto 3.4 % (2.6-8.5); Neutrophils Absolute Auto 11.4 K/mm3 (1.3-6.7); Neutrophils Percent Auto 88.7 % (45.5-73.1); Platelet Count Result 275 k/mm3 (150-375); Red Blood Count 4.58 M/mm3 (4.2-5.4); Red Cell Distribution Width 13.5 % (11.5-14.5); White Blood Count 12.8 K/mm3 (4.5-10.0)
[2022-08-22 14:30] LABS: Alanine Aminotransferase 30 U/L (6-35); Albumin Level 4.2 g/dL (3.5-5.1); Alkaline Phosphatase 63 U/L (38-126); Anion Gap 8 mmol/L (8-16); Aspartate Amino Transferase 32 U/L (14-36); Bilirubin,Total 0.5 mg/dL (0.2-1.3); Blood Urea Nitrogen 16 mg/dL (7-17); Carbon Dioxide 26 mmol/L (22-30); Chloride 102 mmol/L (98-107); Estimated Glomerular Filt Rate > 60; Glucose 150 mg/dL (65-110); Lipase 33 U/L (23-300); Potassium 4.1 mmol/L (3.4-5.0); Sodium 136 mmol/L (137-145)
[2022-08-22 15:10] LABS: Glucose Point of Care 125 mg/dl (65-105)
[2022-08-22 16:05] VITALS: BP 133/45; PULSE 79; RESP 18; O2SAT 97
== END 2022-08-22 16:05 | disposition home or self-care (01) ==
PROVIDERS: Emergency Provider Emergency Medicine; PCP Nurse Practitioner
DX: R11.2 Nausea with vomiting, unspecified (principal); E10.9 Type 1 diabetes mellitus without complications; Z98.890 Other specified postprocedural states; Z79.4 Long term (current) use of insulin; E78.00 Pure hypercholesterolemia, unspecified; I10 Essential (primary) hypertension; G47.33 Obstructive sleep apnea (adult) (pediatric)
CPT/HCPCS: 36415; 80053; 82948; 83690; 85025; 96365; 96375; 99284; J0131; J2405; J7030

== ENCOUNTER 2022-11-26 09:30 | Outpatient (CLI) | payer MEDICARE, OTHER, SELFPAY ==
--- NOTE | ~2022-11-26 | XR_ITS ---
Clinical Indication: Positive TB skin test PA and lateral views of the chest: Comparison: 11/05/2021 Findings: The lungs are clear, without evidence of focal consolidation or pleural effusion. Cardiome diastinal silhouette is within normal limits. Bones and soft tissues are unremarkable. Impression: Normal chest. Reviewed, dictated and finalized at [facility]. Impression: Normal chest.
== END 2022-11-26 09:31 | disposition home or self-care (01) ==
PROVIDERS: PCP Nurse Practitioner; Visit Provider Pediatrics
DX: R76.11 Nonspecific reaction to tuberculin skin test without active tuberculosis (principal); Z11.1 Encounter for screening for respiratory tuberculosis; Z20.1 Contact with and (suspected) exposure to tuberculosis
CPT/HCPCS: 71046

== ENCOUNTER 2023-02-03 13:15 | Emergency (ER) | payer MEDICARE, OTHER, SELFPAY ==
--- NOTE | 2023-02-03 13:28 | PC.NURSE ---
Sent here by [facility] for blood work . Patient is experiencing side effects from rifampin. Patient called the health department (who prescribed the medication) and they wanted patient to get blood work. Upon finding out we did not do blood work, patient decided to leave. Was in no distress. Steady gait. with patient. States she is going to an ED. Triage was not done.
== END 2023-02-03 13:34 | disposition left against medical advice (07) ==
PROVIDERS: Emergency Provider Nurse Practitioner Family
DX: Z53.21 Procedure and treatment not carried out due to patient leaving prior to being seen by health care provider (principal)
CPT/HCPCS: 99199

== ENCOUNTER 2023-02-04 09:57 | Emergency (ER) | payer MEDICARE, OTHER, SELFPAY ==
[2023-02-04] VITALS (10 sets, daily range): BP systolic 122–169; BP diastolic 50–74; PULSE 63–94; RESP 14–22; TEMP 36.5; O2SAT 94–100
--- NOTE | ~2023-02-04 | CT_ITS ---
EXAMINATION: CT abdomen pelvis w con DATE: 02/04/2023 13:15 INDICATION: Elevated liver enzymes. Abdominal pain. TECHNIQUE: Computed tomography (CT) of the abdomen and pelvis was performed with 100 mL Omnipaque-350 intravenous contrast. Automated exposure control and iterative reconstruction technique were employe d. The dose-length product was 453.96 mGy-cm. COMPARISON: 03/22/2022 FINDINGS: Mild bilateral dependent and basilar atelectasis. Heart size is normal. Atherosclerotic coronary constantino ry calcification. No pericardial or pleural effusion. Cholecystectomy clips the gallbladder fossa. Li abigail, spleen, pancreas, bilateral adrenal glands and kidneys are normal. No intra or extra hepatic vannessa iary ductal dilation. Bowels are normal with no obstruction. Bladder is normal. The uterus is not don ntified and has likely been surgically resected. No free intraperitoneal gas or fluid. No pathologica lly enlarged abdominal or pelvic lymphadenopathy. Mild thoracic spondylosis. Mild right and mild to m oderate left hip osteoarthritis. IMPRESSION 1. No biliary ductal dilation or other acute intra-abdominal/pelvic process. Reviewed, dictated and finalized at location L. IMPRESSION 1. No biliary ductal dilation or other acute intra-abdominal/pelvic process.
--- NOTE | 2023-02-04 10:15 | ED.GENADULT ---
HPI - General Adult General Chief complaint: Unspecified Stated complaint: medication reaction Time Seen by Provider: 02/04/23 09:59 History of Present Illness HPI narrative: 67-year-old female history of type 1 diabetes, hypertension presents to the emergency room for evaluation of recent onset of fatigue, nausea vomiting, impaired concentration, and increased urination. Patient states that she was recently started on rifampin for latent TB when the symptoms started. Patient states that she discontinued the medication on Wednesday, reports symptoms have improved. Was encouraged to come to the emergency room for further evaluation Related Data Home Medications Medication Instructions Recorded Confirmed cholecalciferol (vitamin D3) 50 50 mcg PO DAILY 12/09/19 08/14/22 mcg (2,000 unit) tablet (Vitamin D3) atorvastatin 40 mg tablet 40 mg PO DAILY 04/29/21 08/14/22 ipratropium bromide 21 mcg (0.03 2 spray intranasal TID CONGESTION 04/29/21 08/14/22 %) nasal spray multivitamin 1 tablet PO DAILY 04/29/21 08/14/22 amlodipine 10 mg tablet 10 mg PO DAILY 01/21/22 08/14/22 insulin aspart U-100 100 unit/mL See Rx Instructions .Route .COMPLEX 01/25/22 08/14/22 subcutaneous solution (Novolog U-100 Insulin aspart) levocetirizine 5 mg tablet (Xyzal) 5 mg PO DAILY PRN Congestion 08/14/22 08/14/22 rifampin 300 mg capsule mg 02/03/23 Allergies Allergy/AdvReac Type Severity Reaction Status Date / Time mold Allergy Unknown unk Verified 02/04/23 10:07 cat dander Allergy Other Verified 02/04/23 10:07 grass pollen Allergy Other Verified 02/04/23 10:07 weed pollen Allergy Other Verified 02/04/23 10:07 dust Allergy Other Uncoded 02/04/23 10:07 Review of Systems Review of Systems: CONSTITUTIONAL: Denies fever, chills, or sweats. EYES: Denies visual changes, redness, or discharge. ENT: Denies rhinorrhea, congestion, sore throat, or otalgia. CARDIOVASCULAR: Denies chest pain, palpitations, or edema. RESPIRATORY: Denies cough or dyspnea. GASTROINTESTINAL: Reports nausea vomiting GENITOURINARY: Reports frequent urination. SKIN: Denies rash or itching. MUSCULOSKELETAL: Denies back pain, joint pain, or myalgia. NEUROLOGIC: Reports weakness. PSYCHIATRIC: Denies anxiety or depression. [facility] Past Medical History Medical History Allergies Currently receiving allergy shots. Arthritis Bilateral hip pain Fall Hypercholesterolemia Hypertension Lumbar spine pain Obstructive sleep apnea Intolerant to CPAP. Pelvic pain Type 1 diabetes mellitus Surgical History Surgical History History of 2 sections History of appendectomy History of cholecystectomy History of hysterectomy (2002) History of trigger finger Multiple, bilateral trigger finger releases. Family History Family History Sibling Diabetes mellitus Family history of kidney disease Mother Family history of osteoporosis Family history of mental disorder Family history of cardiovascular disease Family history of coronary artery disease Family history of congestive heart failure Family history of hearing loss Father Family history of cardiovascular disease Cerebrovascular accident Family history of chronic obstructive pulmonary disease Diabetes mellitus Emphysema lung Sibling Heart disease End stage renal disease Valvular heart disease Other Hypertension Social History Social History Social History: Surrogate decision maker: Glen Young, spouse. Code status: Full code. Smoking status: Never smoker Second hand tobacco smoke exposure: No Alcohol intake: current Alcohol use details: 1 GLASS WINE/MONTH Substance use: never Substance use type: does not use Lack of Transportation: No Lack of Food: Some
[2023-02-04 10:25] LABS: Basophils Percent Auto 0.2 % (0.2-1.2); Eosinophils Absolute Auto 0.1 K/mm3 (0-0.3); Eosinophils Percent Auto 1.5 % (0-4.4); Hematocrit 40.2 % (37.0-47.0); Hemoglobin 13.4 g/dL (12.0-15.0); Immature Granulocyte Absolute 0.01 K/mm3 (0.00-0.031); Immature Granulocyte Percent A 0.2 % (0-0.5); Lymphocytes Absolute Auto 0.82 K/mm3 (0.9-3.2); Lymphocytes Percent Auto 19.9 % (18.3-44.2); Mean Corpuscular HGB Conc 33.3 g/dl (32-36); Mean Corpuscular Hemoglobin 29.7 pg (26-34); Mean Corpuscular Volume 89.1 fl (80-100); Monocytes Absolute Auto 0.6 K/mm3 (0.1-0.6); Monocytes Percent Auto 13.6 % (2.6-8.5); Neutrophils Absolute Auto 2.7 K/mm3 (1.3-6.7); Neutrophils Percent Auto 64.6 % (45.5-73.1); Platelet Count Result 202 k/mm3 (150-375); Red Blood Count 4.51 M/mm3 (4.2-5.4); Red Cell Distribution Width 12.7 % (11.5-14.5); White Blood Count 4.1 K/mm3 (4.5-10.0)
[2023-02-04 10:43] LABS: Albumin Level 4.4 g/dL (3.5-5.1); Alkaline Phosphatase 194 U/L (38-126); Anion Gap 6 mmol/L (8-16); Aspartate Amino Transferase 499 U/L (14-36); Bilirubin,Total 0.5 mg/dL (0.2-1.3); Blood Urea Nitrogen 11 mg/dL (7-17); Calcium 9.3 mg/dL (8.4-10.2); Carbon Dioxide 31 mmol/L (22-30); Chloride 93 mmol/L (98-107); Estimated CRCL calculation 79 ml/min; Estimated Glomerular Filt Rate > 60; Glucose 175 mg/dL (65-110); Potassium 4.2 mmol/L (3.4-5.0); Sodium 130 mmol/L (137-145)
[2023-02-04 10:45] LABS: Appearance Urine Clear (Clear); Bacteria Urine None Seen /hpf; Bilirubin Urine Negative (Negative); Blood Urine Trace (Negative); Color Urine Yellow (Yellow); Glucose Urine UA Negative (Negative); Ketones Urine Trace mg/dL (Negative); Leukocyte Esterase Ur Negative LEU/UL (Negative); Nitrate Urine Negative (Negative); Non Pathogenic Casts 0-2; Protein Urine Trace mg/dL (Negative); RBC Urine 0-2 /hpf (0-2); Specific Grav Ur 1.007 (1.001-1.035); Squamous Epithelial Cell Urine None seen /hpf (Few); Urobilinogen Urine 0.2 mg/dL (<2.0); WBC Urine 0-5 /hpf
[2023-02-04 10:47] LABS: Add Urine Microscopic? YES
[2023-02-04 10:52] LABS: Lipase 62 U/L (23-300)
[2023-02-04 10:57] LABS: Alanine Aminotransferase 816 U/L (6-35)
[2023-02-04] MEDS: SODIUM CHLORIDE 0.9% IV 1,000 ML 999 ML IV CONT (10:57)
== END 2023-02-04 14:26 | disposition home or self-care (01) ==
PROVIDERS: Emergency Provider Nurse Practitioner Family; PCP Family Medicine
DX: T36.8X5A Adverse effect of other systemic antibiotics, initial encounter (principal); R74.01 Elevation of levels of liver transaminase levels; E10.9 Type 1 diabetes mellitus without complications; I10 Essential (primary) hypertension; Z79.4 Long term (current) use of insulin
CPT/HCPCS: 36415; 74177; 80053; 81001; 83690; 85025; 96360; 99284; J7030; Q9967

== ENCOUNTER 2023-04-15 14:48 | Outpatient (CLI) | payer MEDICARE, OTHER, SELFPAY ==
--- NOTE | ~2023-04-15 | CT_ITS ---
EXAMINATION: CT LE LT wo con DATE: 04/15/2023 15:14 INDICATION: Left knee osteoarthritis. TECHNIQUE: Computed tomography (CT) of the left lower limb was performed without intravenous contrast . Automated exposure control and iterative reconstruction technique were employed. The dose-length pr oduct was 1701.61 mGy-cm. COMPARISON: Left knee radiographs 04/01/2023 FINDINGS: Bone alignment is normal. No fracture. There is moderate left hip osteoarthritis. Left knee demonstrates moderate osteoarthritis of medial and patellofemoral compartments and mild osteoarthrit is of the lateral compartment. There is a small knee joint effusion. There are widespread arterial ca lcifications. IMPRESSION: 1. Moderate left knee osteoarthritis. 2. Small left knee joint effusion. 3. Moderate left hip osteoarthritis. Reviewed, dictated and finalized at location A.
== END 2023-04-15 14:49 | disposition home or self-care (01) ==
LOC: ANHIMG 14:52
PROVIDERS: PCP Family Medicine; Visit Provider Orthopaedic Surgery
DX: M17.12 Unilateral primary osteoarthritis, left knee (principal); M25.462 Effusion, left knee; M16.12 Unilateral primary osteoarthritis, left hip
CPT/HCPCS: 73700

== ENCOUNTER 2023-05-27 10:04 | Outpatient (CLI) | payer MEDICARE, OTHER, SELFPAY ==
[2023-05-27 10:57] LABS: Hematocrit 39.6 % (37.0-47.0); Hemoglobin 12.8 g/dL (12.0-15.0)
--- NOTE | 2023-05-27 11:04 | ECG_ITS ---
Measurements Intervals [place] Rate: 61 P: 61 RI: 163 QRS: 59 QRSD: 78 T: 53 QT: 382 QTc: 386 Interpretive Statements SINUS RHYTHM COMPARED TO ECG 01/29/2022 04:52:51 NO SIGNIFICANT CHANGES Electronically Signed On 05-27-2023 12:59:36 CDT by Bettina Jones M.D.
[2023-05-27 11:09] LABS: Estimated Glomerular Filt Rate > 60
[2023-05-27 11:16] LABS: Hemoglobin A1C 6.7 % (<5.7)
[2023-05-27 12:11] LABS: Urine Cotinine NEGATIVE
== END 2023-05-27 10:05 | disposition home or self-care (01) ==
PROVIDERS: PCP Family Medicine; Visit Provider Orthopaedic Surgery
DX: E10.40 Type 1 diabetes mellitus with diabetic neuropathy, unspecified (principal); M17.12 Unilateral primary osteoarthritis, left knee; E87.1 Hypo-osmolality and hyponatremia; G47.33 Obstructive sleep apnea (adult) (pediatric); I10 Essential (primary) hypertension; E66.3 Overweight
CPT/HCPCS: 80307; 82565; 83036; 85014; 85018; 93005

== ENCOUNTER → 2023-06-11 11:03 | Outpatient (CLI) | payer MEDICARE, OTHER, SELFPAY ==
--- NOTE | ~2023-06-11 | MM_ITS ---
EXAMINATION: MM screening jennifer BI w cachorro HISTORY: Screening TECHNIQUE: Craniocaudal and mediolateral oblique 3-D tomosynthesis images were obtained and synthetic 2-D images were generated. CAD analysis was submitted and interpreted. COMPARISON: 04/02/2021 BREAST PARENCHYMAL COMPOSITION: There are scattered areas of fibroglandular density. FINDINGS: There is no evidence of suspicious mass, calcification, or architectural distortion to sugg est malignancy in either breast. There has been no suspicious interval change. IMPRESSION: 1. No mammographic evidence of malignancy. 2. Recommend routine screening mammography in one year. BI-RADS Category 1: Negative Reviewed, dictated and finalized at location A. ADIER
--- NOTE | ~2023-06-11 | DEXA_ITS ---
Bone Density Report Name: KHOA CHAN Age: 67 Sex: Female Ethnicity: White Date of : 1955 Indication: osteopenia; parental hip fracture; height loss; hysterectomy; postmenopausal Referring Provider: REBECCA CRAWFORD Study: Bone densitometry was performed. Exam Date: June 11, 2023 Accession number: [id number] Bone Density: Region BMD T-score Z-score Classification AP Spine (L1-L4) 0.868 -1.6 0.4 Osteopenia Femoral Neck (Left) 0.609 -2.2 -0.5 Osteopenia Total Hip (Left) 0.724 -1.8 -0.4 Osteopenia Femoral Neck (Right) 0.574 -2.5 -0.8 Osteoporosis Total Hip (Right) 0.709 -1.9 -0.5 Osteopenia Total Hip Mean 0.717 -1.9 -0.5 Osteopenia World Health Organization criteria for BMD impression classify patients as: Normal (T-score at or above -1.0), Osteopenia (T-score between -1.0 and -2.5), or Osteoporosis (T-score at or below -2.5). 10-year Fracture Risk: FRAX not reported because: Some T-score for Spine Total or Hip Total or Femoral Neck at or below -2.5 Previous Exams: Region Exam Age BMD T-score BMD Change BMD Change Date g/cm2 vs Baseline vs Previous AP Spine(L1-L4) 06/11/2023 67 0.868 -1.6 -0.015 -0.015 04/23/2021 65 0.883 -1.5 Total Hip(Left) 06/11/2023 67 0.724 -1.8 -0.022 -0.022 04/23/2021 65 0.746 -1.6 Total Hip(Right) 06/11/2023 67 0.709 -1.9 -0.010 -0.010 04/23/2021 65 0.718 -1.8 *Denotes significance at 95% confidence level, LSC for AP Spine = 0.022 g/cm2, LSC for Total Hip = 0.027 g/cm2 Clinical Information Provided by Patient: Parent has had a hip fracture Has used the following medications: Vitamin D, Calcium, MTV Has the following medical conditions: Hysterectomy Patient maximum height was 63.0 Menopause Age: 47 No regular weight bearing exercise Drinks caffeinated beverages Onset of menses at age 11 Number of children 2 Impression: The patient has osteoporosis, based on the Right Femoral Neck T-score. The patient has risk factors, including: parental hip fracture. No significant bone loss was observed. Discussion: INCREASED RISK OF FRACTURE. BONE DENSITY IS UNDESIRABLY LOW AT ONE OR MORE SKELETAL SITES, CONSISTENT WITH POSTMENOPAUSAL OSTEOPOROSIS. This patient's lowest T-score meets the World Health Organization's (WHO) criteria for osteoporosis at one or more sites (T-score -2.5 or below). In untreated patients, the risk of osteoporotic fracture inc
== END ==
PROVIDERS: PCP Nurse Practitioner; Visit Provider Family Medicine
DX: Z12.31 Encounter for screening mammogram for malignant neoplasm of breast (principal); Z78.0 Asymptomatic menopausal state; M85.89 Other specified disorders of bone density and structure, multiple sites; M81.0 Age-related osteoporosis without current pathological fracture
CPT/HCPCS: 77063; 77067; 77080

== ENCOUNTER 2023-07-21 08:11 | Outpatient (CLI) | payer MEDICARE, OTHER, SELFPAY ==
[2023-07-21 09:50] LABS: Basophils Percent Auto 0.4 % (0.2-1.2); Eosinophils Absolute Auto 0.1 K/mm3 (0-0.3); Eosinophils Percent Auto 1.5 % (0-4.4); Hematocrit 41.6 % (37.0-47.0); Hemoglobin 13.4 g/dL (12.0-15.0); Immature Granulocyte Absolute 0.02 K/mm3 (0.00-0.031); Immature Granulocyte Percent A 0.3 % (0-0.5); Lymphocytes Absolute Auto 1.78 K/mm3 (0.9-3.2); Lymphocytes Percent Auto 24.1 % (18.3-44.2); Mean Corpuscular HGB Conc 32.2 g/dl (32-36); Mean Corpuscular Hemoglobin 29.2 pg (26-34); Mean Corpuscular Volume 90.6 fl (80-100); Mean Platelet Volume 9.2 fl (7.4-10.4); Monocytes Absolute Auto 0.8 K/mm3 (0.1-0.6); Monocytes Percent Auto 11.4 % (2.6-8.5); Neutrophils Absolute Auto 4.6 K/mm3 (1.3-6.7); Neutrophils Percent Auto 62.3 % (45.5-73.1); Platelet Count Result 288 k/mm3 (150-375); Red Blood Count 4.59 M/mm3 (4.2-5.4); Red Cell Distribution Width 12.6 % (11.5-14.5); White Blood Count 7.4 K/mm3 (4.5-10.0)
[2023-07-21 10:05] LABS: Albumin Level 4.8 g/dL (3.5-5.1)
[2023-07-21 10:08] LABS: Anion Gap 7 mmol/L (8-16); Blood Urea Nitrogen 16 mg/dL (7-17); Calcium 10.2 mg/dL (8.4-10.2); Carbon Dioxide 31 mmol/L (22-30); Chloride 99 mmol/L (98-107); Estimated Glomerular Filt Rate > 60; Glucose 120 mg/dL (65-110); Potassium 4.1 mmol/L (3.4-5.0); Sodium 137 mmol/L (137-145)
[2023-07-21 10:10] LABS: Urine Cotinine NEGATIVE
== END 2023-07-21 08:12 | disposition home or self-care (01) ==
LOC: ANHSURGERY 08:15
PROVIDERS: Anesthesiology; PCP Family Medicine; Visit Provider Orthopaedic Surgery
DX: Z01.818 Encounter for other preprocedural examination (principal); E10.9 Type 1 diabetes mellitus without complications; M17.12 Unilateral primary osteoarthritis, left knee
CPT/HCPCS: 36415; 80048; 80307; 82040; 85025; 87081

== ENCOUNTER 2023-08-07 11:12 | Emergency (ER) | payer MEDICARE, OTHER, SELFPAY ==
[2023-08-07 11:19] VITALS: BP 146/56; PULSE 77; RESP 16; TEMP 36.7; O2SAT 100
--- NOTE | 2023-08-07 12:18 | ED.GENADULT ---
HPI - General Adult General Chief complaint: Skin/Abscess/Foreign Body Stated complaint: Skin Sore/Left Arm Source: patient Mode of arrival: ambulatory Limitations: no limitations History of Present Illness HPI narrative: Patient presents for a skin evaluation. She is a diabetic and has an insulin pump. She wears a continuous glucose monitor. Yesterday she removed her CGM from her left upper extremity and noticed an abrasion at the site at which he was previously adhered. She has noted some yellow discharge from the area. No surrounding redness. No fever, chills, nausea, vomiting. States her last a1c was 6.5. She has left knee replacement scheduled for of next week. Date of last tetanus unknown. Related Data Home Medications Medication Instructions Recorded Confirmed cholecalciferol (vitamin D3) 50 50 mcg PO DAILY 12/09/19 07/21/23 mcg (2,000 unit) tablet (Vitamin D3) atorvastatin 40 mg tablet 40 mg PO DAILY 04/29/21 07/21/23 ipratropium bromide 21 mcg (0.03 2 spray intranasal TID CONGESTION 04/29/21 07/21/23 %) nasal spray multivitamin 1 tablet PO DAILY 04/29/21 07/21/23 amlodipine 10 mg tablet 10 mg PO DAILY 01/21/22 07/21/23 insulin aspart U-100 100 unit/mL See Rx Instructions .Route .COMPLEX 01/25/22 07/21/23 subcutaneous solution (Novolog U-100 Insulin aspart) levocetirizine 5 mg tablet (Xyzal) 5 mg PO HS PRN Congestion 08/14/22 07/21/23 magnesium 250 mg tablet 200 mg PO DAILY 04/01/23 07/21/23 ibuprofen 200 mg tablet 200 mg PO Q6H PRN Pain 07/21/23 07/21/23 isoniazid 300 mg tablet 300 mg PO DAILY LATENT TB 07/21/23 07/21/23 lactobacillus combination no.8 3 3 cell PO 3XW 07/21/23 07/21/23 billion cell capsule Miralax 08/07/23 Allergies Allergy/AdvReac Type Severity Reaction Status Date / Time mold Allergy Unknown Congested Verified 08/07/23 11:14 cat dander Allergy Other Verified 08/07/23 11:14 grass pollen Allergy Other Verified 08/07/23 11:14 rifampin Allergy Fatigued Verified 08/07/23 11:14 weed pollen Allergy Other Verified 08/07/23 11:14 levofloxacin AdvReac Nausea Verified 08/07/23 11:14 dust Allergy Other Uncoded 08/07/23 11:14 Review of Systems Review of Systems: CONSTITUTIONAL: Denies fever, chills, or sweats. EYES: Denies visual changes, redness, or discharge. ENT: Denies rhinorrhea, congestion, sore throat, or otalgia. CARDIOVASCULAR: Denies chest pain, palpitations, or edema. RESPIRATORY: Denies cough or dyspnea. GASTROINTESTINAL: Denies abdominal pain, nausea, vomiting, or diarrhea. GENITOURINARY: Denies dysuria or hematuria. SKIN: Reports abrasion to the left upper arm MUSCULOSKELETAL: Denies back pain, joint pain, or myalgia. NEUROLOGIC: Denies headache, numbness, dizziness, or weakness. PSYCHIATRIC: Denies anxiety or depression. [facility] Past Medical History Medical History Allergies Currently receiving allergy shots. Arthritis Bilateral hip pain Fall Hypercholesterolemia Hypertension Lumbar spine pain Obstructive sleep apnea Intolerant to CPAP. Pelvic pain Type 1 diabetes mellitus Surgical History Surgical History History of 2 sections History of appendectomy History of cholecystectomy History of hysterectomy (2002) History of trigger finger Multiple, bilateral trigger finger releases. Family History Family History Sibling Diabetes mellitus Family history of kidney disease Mother Family history of osteoporosis Family history of mental disorder Family history of cardiovascular disease Family history of coronary artery disease Family history of congestive heart failure Family history of hearing loss Father Family history of cardiovascular disease Cerebrovascular accident Family history of chronic obstructive pulmonary disease Diabetes mendoza
[2023-08-07] MEDS: TETANUS,DIPHTHERIA,AC PERTUSSIS ADULT (0.5 ML) BOOSTRIX IM (12:20)
== END 2023-08-07 12:30 | disposition home or self-care (01) ==
PROVIDERS: Emergency Provider Nurse Practitioner; PCP Family Medicine
DX: S40.812A Abrasion of left upper arm, initial encounter (principal); X58.XXXA Exposure to other specified factors, initial encounter; Z23 Encounter for immunization; M19.90 Unspecified osteoarthritis, unspecified site; E78.00 Pure hypercholesterolemia, unspecified; I10 Essential (primary) hypertension; E10.9 Type 1 diabetes mellitus without complications
CPT/HCPCS: 87070; 87205; 90471; 90715; 99213; G0463

== ENCOUNTER 2023-08-12 00:27 | Day surgery (SDC) | payer MEDICARE, OTHER, SELFPAY ==
[2023-07-21 08:20] VITALS: BMI 27.8
--- NOTE | 2023-07-21 08:58 | PC.NURSE ---
Report to the Outpatient Waiting Room, entrance under the green pavilion located off [facility], at time __0830 on date __08/12/23 . Planned Procedure Time: _1030 . Time changes happen often and if your time is changed the preop area will call you the afternoon before. - You and your visitor will be asked to self-screen and do not enter if you have any COVID symptoms. - A mask is optional within the hospital at this time. Patients may have clear liquids (water, carbonated beverages, clear teas, apple juice) until 3 hours prior to surgery (7:30 AM)with a maximum of 20 ounces. - No food from midnight until time of surgery - Infants may have breast milk until 4 hours before surgery, infant formula 6 hours prior to surgery. - Children will be allowed to drink immediately following surgery. If applicable, please bring a bottle or sippy cup to assist with drinking. Juice, water, soda, and popsicles are readily available. For infants on formula, please bring formula the day of surgery. Pacifiers are allowed. Take the following medications with a SIP of water the morning of surgery: ___AMLODIPINE,,ISONIAZID, DO NOT STOP ANY OF YOUR OTHER PRESCRIPTION MEDICATIONS PRIOR TO SURGERY ?EXCEPT THE FOLLOWING Medications to discontinue per physician _HOLD IBUPROFEN 7 DAYS PRE OP PER DR VICENTE LAST DOSE 08/04/23 ALL VITAMINS AND SUPPLEMENTS 3 DAYS PRE OP .LAST DOSE 08/08/23 TOTAL JOINT CLASS 07/21/23 AT 10 AM Please no make-up, nail kinyarwanda, hairspray, perfume, deodorant, or body powder the day of surgery. No jewelry (including any body piercings) or valuables the day of surgery, leave them at home. Please take a shower or bath the night before, or the morning of, surgery with an antibacterial soap. Wear comfortable, loose fitting clothing. Children are encouraged to wear pajamas. - Jewelry must be removed prior to entering the operating room. Rings and piercings that are not removed may be cut off. - The hospital will not accept responsibility for valuables. - Please leave all valuables, including medications, at home the day of surgery. If you are going home after surgery, a licensed trash collector truck driver must drive you home. - NO public transportation without another adult if you receive anesthesia. - We recommend that an adult stay with you for 24 hours following discharge. - We also recommend that you do not drive, make important decision, drink alcoholic beverages, or take any drugs that were not prescribed by your health care provider for at least 24 hours after your discharge time. For Pediatric surgeries, we recommend two adults accompany the child home. Follow any additional instructions given to you from your surgeon. If you or anyone in your household have experienced Covid symptoms in the past week, please notify your surgeon or the nurse liaison at the phone number below for possible testing. VERBA AND WRITTEN instructions given to __PT AND SPOUSE BOBY and asked if any additional questions and then verbalized understanding. Patient advised to call surgeon office or pre surgery nurse liaison [phone] if any additional questions.
[2023-07-21 09:15] VITALS: BP 135/47; PULSE 72; RESP 18; TEMP 36.6; O2SAT 100
[2023-08-12] VITALS (14 sets, daily range): BP systolic 107–139; BP diastolic 42–57; PULSE 62–90; RESP 14–20; TEMP 36.2–36.8; O2SAT 92–100
--- NOTE | ~2023-08-12 | XR_ITS ---
EXAMINATION: [id number] DATE: 08/12/2023 10:17 INDICATION: Total left knee arthroplasty. Postop. TECHNIQUE: 2 views of left knee were obtained. COMPARISON: Left knee radiographs 02/09/2022 FINDINGS: There is a total left knee arthroplasty with patellar resurfacing. Tibia demonstrates 7 deg neftaly posterior angulation with respect to tibial component. No fracture. There is gas in the knee andrea nt and soft tissues, consistent with recent surgery. IMPRESSION: 1. New total left knee arthroplasty. Reviewed, dictated and finalized at location A. ION CONSULTANT
[2023-08-12 07:01] LABS: Glucose Point of Care 96 mg/dl (65-105)
[2023-08-12] MEDS: ACETAMINOPHEN 500 MG TABLET 1000 MG PO (07:05)
[2023-08-12] MEDS: TRANEXAMIC ACID 1,000MG/ISO100 1,000 MG/100 ML BAG 200 MG IVPB (07:05)
[2023-08-12] MEDS: LACTATED RINGERS 1,000 ML 30 ML IV CONT ×2 (07:05→09:50)
--- NOTE | 2023-08-12 07:18 | WPDHPUPDATE1 ---
History and Physical Update Update Date/Time: 08/12/23 07:18 History and Physical has been reviewed, including an updated exam of the patient. There are NO changes in the patient's condition. Risks, benefits, and alternatives have been discussed and questions answered. Patient agrees to proceed with procedure.
--- NOTE | 2023-08-12 07:24 | WPDANESEPPF ---
Anes - Initial Pre Proc Eval Procedure: Operation Date: 08/12/23 07:30 Proposed Procedures p Left Custom Total Knee Arthroplasty - Ruiz Hanks MD Date/Time: 08/12/23 07:24 Surgeon: Riuz Hanks MD Pre Op Diagnosis: primary oa left knee Patient Data Age: 67 Gender: F Height: 1.56 m Weight: 67.8 kg Last Vital Signs Temp 36.6 C 07/21/23 09:15 Pulse 72 07/21/23 09:15 Resp 18 07/21/23 09:15 BP 135/47 L 07/21/23 09:15 Pulse Ox 100 07/21/23 09:15 O2 Del Method Room Air 07/21/23 09:15 Allergies Allergy/AdvReac Type Severity Reaction Status Date / Time mold Allergy Unknown Congested Verified 08/07/23 11:14 cat dander Allergy Other Verified 08/07/23 11:14 grass pollen Allergy Other Verified 08/07/23 11:14 rifampin Allergy Fatigued Verified 08/07/23 11:14 weed pollen Allergy Other Verified 08/07/23 11:14 levofloxacin AdvReac Nausea Verified 08/07/23 11:14 dust Allergy Other Uncoded 08/07/23 11:14 Home Medications Medication Instructions Recorded Confirmed Type cholecalciferol (vitamin D3) 50 50 mcg PO DAILY 12/09/19 07/21/23 History mcg (2,000 unit) tablet (Vitamin D3) atorvastatin 40 mg tablet 40 mg PO DAILY 04/29/21 07/21/23 History ipratropium bromide 21 mcg (0.03 2 spray intranasal TID CONGESTION 04/29/21 07/21/23 History %) nasal spray multivitamin 1 tablet PO DAILY 04/29/21 07/21/23 History amlodipine 10 mg tablet 10 mg PO DAILY 01/21/22 07/21/23 History insulin aspart U-100 100 unit/mL See Rx Instructions .Route .COMPLEX 01/25/22 07/21/23 History subcutaneous solution (Novolog U-100 Insulin aspart) hydrochlorothiazide 25 mg tablet 25 mg PO DAILY #90 tabs 08/10/22 07/21/23 Rx levocetirizine 5 mg tablet (Xyzal) 5 mg PO HS PRN Congestion 08/14/22 07/21/23 History magnesium 250 mg tablet 200 mg PO DAILY 04/01/23 07/21/23 History pyridoxine (vitamin B6) 50 mg 50 mg PO DAILY #90 tabs 04/07/23 07/21/23 Rx tablet lisinopril 40 mg tablet 40 mg PO DAILY #90 tabs 05/04/23 07/21/23 Rx ibuprofen 200 mg tablet 200 mg PO Q6H PRN Pain 07/21/23 07/21/23 History isoniazid 300 mg tablet 300 mg PO DAILY LATENT TB 07/21/23 07/21/23 History lactobacillus combination no.8 3 3 cell PO 3XW 07/21/23 07/21/23 History billion cell capsule Miralax 08/07/23 History cephalexin 500 mg capsule 500 mg PO Q6H #40 caps 08/07/23 Rx Laboratory Tests 08/12/23 06:58 POC Capillary Glucose 96 mg/dl (65-105) Patient hx anesthesia problems: post op nausea/vomiting Family hx anesthesia problems: none Results Review: All pre-operative results and documents have been reviewed as part of the pre-operative evaluation. [facility] Past Medical History Medical History Allergies Currently receiving allergy shots. Arthritis Bilateral hip pain Fall Hypercholesterolemia Hypertension Lumbar spine pain Obstructive sleep apnea Intolerant to CPAP. Pelvic pain Type 1 diabetes mellitus Surgical History Surgical History History of 2 sections History of appendectomy History of cholecystectomy History of hysterectomy (2002) History of trigger finger Multiple, bilateral trigger finger releases. Family History Family History Sibling Diabetes mellitus Family history of kidney disease Mother Family history of osteoporosis Family history of mental disorder Family history of cardiovascular disease Family history of coronary artery disease Family history of congestive heart failure Family history of hearing loss Father Family history of cardiovascular disease Cerebrovascular accident Family history of chronic obstructive pulmonary disease Diabetes mellitus Emphysema lung Sibling Heart disease End stage renal disease Valvular heart disease Other Hypertension So
[2023-08-12] MEDS: SCOPOLAMINE 1 MG PATCH 1 PATCH TRANSDERM (07:30)
[2023-08-12] MEDS: ceFAZolin 2 GM/D5W 50 ML 2 GM/50 ML BAG IVPB (07:39)
--- NOTE | 2023-08-12 07:50 | WPDANESPNB ---
Anes - Peripheral Nerve Block Date/Time: 08/12/23 07:50 I have discussed with the patient/family/POA the placement of a peripheral nerve block for post-operative pain management, including associated risks, benefits, complications, and side effects. Alternative methods of post-operative analgesia were detailed. Questions were solicited and answers provided to the satisfaction of the patient/family/POA. Time-Out: A pre-procedural Time-Out was completed immediately before starting the procedure and confirmed: Patient Identification, Site, Procedure, Patient Position and the Availability of Requisite Equipment. Clinical Indications: Acute post-operative pain management requested by the operative surgeon. Nerve Block Insertion Note Anes-nerve block: adductor canal left Patient position: supine Skin prep: chlorhexidine Needle: 22 gauge, stimulating, insulated echogenic needle. Needle length: 80 mm Technique: ultrasound Technique comment: mid1mg fent 50mcg Injectate: bupivacaine 0.5% with epi 5 mcg/ml (30ml no epi) and dexamethasone (mg) (4) Observations: tolerated well Complications: none Procedure start time:: 728 Procedure end time:: 735
[2023-08-12] MEDS: GENTAMICIN BONE CEMENT REFOBACIN 1 EACH TOPICAL (08:17)
--- NOTE | 2023-08-12 10:03 | P.OP_ITS ---
Procedure Note - Detailed Date of Procedure 08/12/23 Pre-op Diagnosis Degenerative arthritis, left knee Post-op Diagnosis Same Procedure Performed Total knee arthroplasty, left. Surgeon Ruiz Hanks MD Anesthesia General and Regional (Subsartorial block.) Findings No significant releases required. Osteopenia noted. Description of Procedure Preoperative antibiotics were given. The limb was prepped and draped in the usual sterile fashion with a well-padded tourniquet high on the thigh. The limb was exsanguinated and the tourniquet inflated to 300 mmHg. A longitudinal incision was created just medial to the patella. A trivector approach to the knee was performed. Arthrotomy was taken down through the joint capsule. No significant releases were initially taken. The femur was exposed and the F1 jig was applied. The coring tool was used to remove the cartilage for the F2 jig to sit flush with the bone. The jig was pinned and the distal cut carefully taken. Caliper measurements confirmed appropriate bony resections according to the preoperative templated plan. The F4 cutting jig for the femur was applied, at the standard rotation. The AP and anterior chamfer cuts were taken. The F5 jig was applied and the posterior chamfer cuts were taken. The tibia was prepared using the T1 jig, after removing cartilage for the jig contact points. Proper alignment was checked with the alignment lashanda. The tibia was cut using the T1u guide. Gap balancing was performed. Gap measurements were taken and the knee was trialed. Excellent alignment and soft tissue balancing was confirmed. The posterior cruciate ligament was recessed along the proximal tibia. The patella was cut for resurfacing. Three lug holes were drilled. Meniscal remnants were removed. The trial components were assembled. Excellent range of motion and proper soft tissue balancing were confirmed throughout the full range of motion. Patellar tracking was excellent. The knee was copiously irrigated periodically throughout the procedure. The real implants were ce mented into position. Excess cement was carefully removed. The wound was closed in layers with interrupted #1 Vicryl suture, #2 strata fix suture, 2-0 strata fix suture, 3-0 strata fix suture. Steri-Strips placed on the skin with the knee flexed. Sterile bulky dressing applied. The patient was brought to the recovery room in stable condition. There were no complications. Implants [employer]form[employer] total knee arthroplasty. Cemented. Cruciate retaining. 7 mm insert. 32 mm oval patella. Estimated Blood Loss 50 Tourniquet Time Total Tourniquet Time: 60 Drains No Complications No immediate complications Condition Stable Disposition PACU [facility] Billing Surgery - Charge Forward: Surgery Billing
[2023-08-12 10:06] LABS: Glucose Point of Care 133 mg/dl (65-105)
[2023-08-12] MEDS: fentaNYL CITRATE INJ (*CRX) 100 MCG/2 ML VIAL 25 MCG IV PUSH ×4 (10:21→10:40)
[2023-08-12 12:00] LABS: Glucose Point of Care 149 mg/dl (65-105)
[2023-08-12] MEDS: KETOROLAC 15 MG/ML VIAL (*BKC) IV PUSH ×3 (12:05→23:59)
[2023-08-12] MEDS: oxyCODONE HCL (*CRX) 5 MG TAB IR PO ×3 (12:06→21:04)
[2023-08-12] MEDS: SODIUM CHLORIDE 0.9% IV 1,000 ML 125 ML IV CONT (12:07)
--- NOTE | 2023-08-12 12:34 | WPDCN ---
Assessment and Plan Assessment and plan (1) Latent tuberculosis: Code(s): Z22.7 - Latent tuberculosis Status: Acute (2) Hypertension: Code(s): I10 - Essential (primary) hypertension Status: Acute (3) Obstructive sleep apnea: Code(s): G47.33 - Obstructive sleep apnea (adult) (pediatric) Status: Acute (4) Type 1 diabetes mellitus: Code(s): E10.9 - Type 1 diabetes mellitus without complications Status: Acute (5) Essential hypertension: Code(s): I10 - Essential (primary) hypertension Status: Acute (6) Status post total knee replacement: Code(s): Z96.659 - Presence of unspecified artificial knee joint Status: Acute Plan S/p total knee arthroplasty left POD 0: -initiate fall precautions -continue PT/OT as ordered -continue ambulate with assistance -Up in the chair -Incentive spirometry q.2 hours - neurovascular checks Q 1 x 1, Q 1 x4, Q to 4 x 5, Q 12 - continue Teds thigh high -continue assess for any bleeding to postsurgical site -dressing changes as ordered by Ortho -continue cefazolin 1gm IVPB q 8h Diabetes Type 1, has insulin pump(VirtualUtronic) patient is very aware of insulin pump settings and parameters, she is managing her boluses currently. insulin pump is being managed with insulin aspart, spoke with pharmacy they are not able to refill insulin for pump -please check blood glucose q 4hrs, - initiate hypoglycemia protocol - is patient's mental status changes please note we will need to DC insulin pump and managed blood glucose levels DRE, intolerant of CPAP -continue home therapy of mandibular advancement device -overnight 02 study HTN -Continue home medication amlodipine 10 mg p.o. -continue home medication hydrochlorothiazide 25 mg p.o. -continue home medication lisinopril 40 mg p.o. latent TB: pt reports unknown TB exposure, recently was stated on 6 month INH therapy -check CBC, CMP in the a.m. -continue home medication isoniazid Hyperlipidemia: -continue home medication atorvastatin Diet: advance as tolerated, regular VTE: ASA BID anticipated hospital stay >1 day HPI Data of Consult Date/Time: 08/12/23 12:34 Requesting Physician: Ruiz Hanks MD Primary Care Provider: Amador Huber MD Consult Narrative Reason for consult: s/p: Total knee arthroplasty pod: 0 Narrative: Pauline Young is a 67 year old female with a PMHx of T1DM on insulin pump, hx of latent TB currently on INH therapy, DRE uses MAD therapy,HLD, Arthritis, and osteopenia. Patient complained of persistent and progressive left knee pain, she has tried extensive conservative treatment to include hyaluronic acid injection, her pain has continued to worsen. She was not able to tolerate NSAIDs or steroid injections, due to her hx of T1DM. Pt was experiencing ongoing worsening left knee pain. It was decided to undergo a right total knee arthroplasty. Pt is being seen s/p: Left total knee arthroplasty, pod 0 Operative report: reveals no significant events during procedure, proper alignment was checked with the alignment lashanda. Excellent alignment soft tissue balancing was confirmed. The knee was copiously irrigated periodically throughout the procedure.? The real implants were cemented into position.? Excess cement was carefully removed. The wound was closed in layers with interrupted #1 Vicryl suture, #2 strata fix suture, 2-0 strata fix suture, 3-0 strata fix suture.? Steri-Strips placed on the skin with the knee flexed.? Sterile bulky dressing applied.? The patient was brought to the recovery room in stable condition.? There were no complications.. Review of Systems Review of Systems: All systems reviewed & are unremarkable except as noted in HPI and below PMFSH Past Medical History Medical History (Updated 08/12/23 @ 15:41 by Destinee Caraballo APRN) Allergies Currently receiving allergy shots. Arthritis Bilateral hip p
[2023-08-12] MEDS: IPRATROPIUM NASAL SPRAY 0.03% 15 ML BOTTLE 2 SPRAY NASAL ×2 (14:08→16:55)
[2023-08-12] MEDS: ceFAZolin 1 GM/NS 50 ML 1 GM/50 ML BAG IVPB ×2 (16:54→23:59)
[2023-08-12] MEDS: ASPIRIN 81 MG ENTERIC TABLET PO (16:54)
[2023-08-12] MEDS: SENNA/DOCUSATE SODIUM TABLET 2 TAB PO (16:54)
[2023-08-12 17:06] LABS: Glucose Point of Care 146 mg/dl (65-105)
[2023-08-13 00:16] VITALS: BP 124/44; PULSE 59; RESP 20; TEMP 36.2; O2SAT 96
[2023-08-13 04:14] VITALS: BP 131/44; PULSE 61; RESP 18; TEMP 36.8; O2SAT 96
[2023-08-13] MEDS: KETOROLAC 15 MG/ML VIAL (*BKC) IV PUSH ×2 (05:48→12:06)
[2023-08-13 06:18] LABS: Basophils Percent Auto 0.2 % (0.2-1.2); Eosinophils Percent Auto 0.2 % (0-4.4); Hematocrit 30.4 % (37.0-47.0); Immature Granulocyte Absolute 0.07 K/mm3 (0.00-0.031); Immature Granulocyte Percent A 0.5 % (0-0.5); Lymphocytes Absolute Auto 1.46 K/mm3 (0.9-3.2); Lymphocytes Percent Auto 11.4 % (18.3-44.2); Mean Corpuscular HGB Conc 32.9 g/dl (32-36); Mean Corpuscular Hemoglobin 29.8 pg (26-34); Mean Corpuscular Volume 90.5 fl (80-100); Mean Platelet Volume 9.5 fl (7.4-10.4); Monocytes Absolute Auto 1.3 K/mm3 (0.1-0.6); Monocytes Percent Auto 9.9 % (2.6-8.5); Neutrophils Percent Auto 77.8 % (45.5-73.1); Platelet Count Result 216 k/mm3 (150-375); Red Blood Count 3.36 M/mm3 (4.2-5.4); Red Cell Distribution Width 12.8 % (11.5-14.5); White Blood Count 12.8 K/mm3 (4.5-10.0)
[2023-08-13 06:29] LABS: Anion Gap 7 mmol/L (8-16); Blood Urea Nitrogen 19 mg/dL (7-17); Calcium 8.2 mg/dL (8.4-10.2); Carbon Dioxide 24 mmol/L (22-30); Chloride 96 mmol/L (98-107); Estimated CRCL calculation 59 ml/min; Estimated Glomerular Filt Rate > 60; Glucose 144 mg/dL (65-110); Potassium 4.2 mmol/L (3.4-5.0); Sodium 127 mmol/L (137-145)
[2023-08-13] MEDS: ATORVASTATIN 40 MG TABLET PO (08:10)
[2023-08-13] MEDS: ASPIRIN 81 MG ENTERIC TABLET PO (08:10)
[2023-08-13] MEDS: MULTIVITAMINS THERAPEUTIC TAB (*BKC) 1 TABLET PO (08:10)
[2023-08-13] MEDS: lisinopriL 20 MG TABLET 40 MG PO (08:10)
[2023-08-13] MEDS: CHOLECALCIFEROL 1,000 UNITS TABLET 2000 UNITS PO (08:10)
[2023-08-13] MEDS: SENNA/DOCUSATE SODIUM TABLET 2 TAB PO (08:10)
[2023-08-13] MEDS: ISONIAZID 100 MG TABLET 300 MG PO (08:10)
[2023-08-13] MEDS: MAGNESIUM OXIDE 200 MG TABLET PO (08:10)
[2023-08-13] MEDS: IPRATROPIUM NASAL SPRAY 0.03% 15 ML BOTTLE 2 SPRAY NASAL ×2 (08:11→12:09)
[2023-08-13] MEDS: PYRIDOXINE HCL 50 MG TABLET PO (08:11)
[2023-08-13] MEDS: hydroCHLOROthiazide 25 MG TABLET PO (08:11)
[2023-08-13] MEDS: polyethylene glycoL 3350 17 GM POWD.PACK PO (08:11)
[2023-08-13] MEDS: amLODIPine BESYLATE 5 MG TABLET 10 MG PO (08:11)
[2023-08-13] MEDS: ceFAZolin 1 GM/NS 50 ML 1 GM/50 ML BAG IVPB (08:12)
[2023-08-13 08:13] VITALS: BP 126/38; PULSE 68; RESP 17; TEMP 36.6; O2SAT 100
[2023-08-13] MEDS: SODIUM CHLORIDE 0.9% IV 500 ML IV CONT (08:14)
[2023-08-13] MEDS: oxyCODONE HCL (*CRX) 5 MG TAB IR PO (09:32)
[2023-08-13 12:00] VITALS: BMI 27.6
== END 2023-08-13 13:30 | disposition home or self-care (01) ==
LOC: ANHSURGERY 06:08 → ANH2MED 11:04
PROVIDERS: PCP Family Medicine; Visit Provider Orthopaedic Surgery
PROC: (CPT 27447; principal; 2023-08-12 07:30)
DX: M17.12 Unilateral primary osteoarthritis, left knee (principal); M85.80 Other specified disorders of bone density and structure, unspecified site; G89.18 Other acute postprocedural pain; Z79.4 Long term (current) use of insulin; E78.00 Pure hypercholesterolemia, unspecified; E10.9 Type 1 diabetes mellitus without complications
CPT/HCPCS: 27447; 64447; 36415; 73560; 80048; 82948; 85025; 86850; 86900; 86901; 97110; 97116; 97161; 97165; 97530; 97535; A9270; C1713; C1776; J0171; J0690; J1100; J1885; J2250; J2270; J2405; J2704; J2795; J3010; J7030; J7040; J7120

== ENCOUNTER 2023-08-30 15:06 | Outpatient (CLI) | payer MEDICARE, OTHER, SELFPAY ==
--- NOTE | ~2023-08-30 | CT_ITS ---
EXAMINATION: CT abdomen pelvis w con DATE: 08/30/2023 15:36 INDICATION: Left lower quadrant abdominal pain TECHNIQUE: Computed tomography (CT) of the abdomen and pelvis was performed with 100 CC Omnipaque 350 intravenous contrast. Automated exposure control and iterative reconstruction technique were employe d. Exam dose: 353.12 mGy-cm total exam DLP. COMPARISON: 02/04/2023 CT abdomen pelvis FINDINGS: There is mild chronic discoid scarring at the lung bases. The lung bases are clear of infil trate or consolidation. Normal heart size. No pericardial or pleural effusion. Status post cholecystectomy. Stable very small right posterior hepatic cyst. No other hepatic space-o ccupying mass lesion is evident. Normal splenic size. No pancreatic mass lesion or calcification. No bile duct or pancreatic duct dilatation. Normal morphology of the adrenal glands. No renal mass lesion or urinary tract calculus or hydroureteronephrosis. The urinary bladder is unrem arkable. Status post hysterectomy. There is atherosclerotic calcification but normal caliber of the abdominal aorta. No intraperitoneal or retroperitoneal or pelvic mass lesion or adenopathy or ascites is noted. No evidence of appendicitis. There is a prominent amount of fecal material within the colon but no betzaida wel obstruction, bowel wall thickening, pneumatosis or intraperitoneal free air is detected. Small fat-containing umbilical hernia. No suspicious osteolytic or osteoblastic lesions. Posterior disc bulging is noted L4-5 and L5-S1. Bilateral hip osteoarthritis. IMPRESSION: Status post cholecystectomy Status post hysterectomy Small stable hepatic cyst Reviewed, dictated and finalized at Location A. Reviewed, dictated and finalized at location B. N PRODUCER
== END 2023-08-30 15:07 | disposition home or self-care (01) ==
LOC: ANHIMG 15:12
PROVIDERS: PCP Family Medicine; Visit Provider Nurse Practitioner Family
DX: R19.4 Change in bowel habit (principal); R10.9 Unspecified abdominal pain; Z90.49 Acquired absence of other specified parts of digestive tract; Z90.710 Acquired absence of both cervix and uterus; K76.89 Other specified diseases of liver
CPT/HCPCS: 74177; Q9967

== ENCOUNTER 2023-09-29 14:22 | Outpatient (CLI) | payer MEDICARE, OTHER, SELFPAY ==
--- NOTE | ~2023-09-29 | XR_ITS ---
EXAMINATION: XR knee LT 3V DATE: 09/29/2023 14:41 INDICATION: Presence of unspecified artificial knee joint. TECHNIQUE: 3 views of left knee including standing views were obtained. COMPARISON: Left knee radiographs 09/01/23 FINDINGS: There is a total left knee arthroplasty with patellar resurfacing in near-anatomic alignmen t. No fracture. No periprosthetic lucency to suggest loosening or infection. No knee joint effusion. IMPRESSION: 1. Total left knee arthroplasty in near-anatomic alignment. Reviewed, dictated and finalized at location A. ICAL RN MANAGER
== END 2023-09-29 14:23 | disposition home or self-care (01) ==
PROVIDERS: PCP Family Medicine; Visit Provider Physician Assistant Surgical
DX: Z96.652 Presence of left artificial knee joint (principal)
CPT/HCPCS: 73562

== ENCOUNTER 2023-10-20 11:55 | Outpatient (CLI) | payer MEDICARE, OTHER, SELFPAY ==
[2023-10-20 12:45] LABS: Hematocrit 38.2 % (37.0-47.0); Hemoglobin 12.3 g/dL (12.0-15.0); Mean Corpuscular HGB Conc 32.2 g/dl (32-36); Mean Corpuscular Hemoglobin 28.5 pg (26-34); Mean Corpuscular Volume 88.6 fl (80-100); Mean Platelet Volume 9.1 fl (7.4-10.4); Platelet Count Result 290 k/mm3 (150-375); Red Blood Count 4.31 M/mm3 (4.2-5.4); Red Cell Distribution Width 12.7 % (11.5-14.5); White Blood Count 6.7 K/mm3 (4.5-10.0)
[2023-10-20 12:56] LABS: Alanine Aminotransferase 51 U/L (6-35); Albumin Level 4.3 g/dL (3.5-5.1); Alkaline Phosphatase 71 U/L (38-126); Anion Gap 5 mmol/L (8-16); Aspartate Amino Transferase 51 U/L (14-36); Bilirubin,Total 0.3 mg/dL (0.2-1.3); Blood Urea Nitrogen 18 mg/dL (7-17); Carbon Dioxide 30 mmol/L (22-30); Chloride 100 mmol/L (98-107); Estimated Glomerular Filt Rate > 60; Glucose 113 mg/dL (65-110); Potassium 4.3 mmol/L (3.4-5.0); Sodium 135 mmol/L (137-145)
== END 2023-10-20 11:56 | disposition home or self-care (01) ==
PROVIDERS: PCP Family Medicine; Visit Provider Family Medicine
DX: E10.9 Type 1 diabetes mellitus without complications (principal); G47.33 Obstructive sleep apnea (adult) (pediatric); I10 Essential (primary) hypertension; Z22.7 Latent tuberculosis; Z96.652 Presence of left artificial knee joint
CPT/HCPCS: 36415; 80053; 85027

== ENCOUNTER 2023-10-21 08:15 | Outpatient (CLI) | payer MEDICARE, OTHER, SELFPAY | END 2023-10-21 08:16 | disposition home or self-care (01) | LOC: ANHLAB 08:16 | PROVIDERS: PCP Family Medicine; Visit Provider Family Medicine | DX: Z22.7 Latent tuberculosis (principal) | CPT/HCPCS: 87070; 87205 ==

== ENCOUNTER 2023-10-23 07:27 | Outpatient (CLI) | payer MEDICARE, SELFPAY | END 2023-10-23 07:28 | disposition home or self-care (01) | LOC: CHSLAB 07:30 | PROVIDERS: PCP Family Medicine; Visit Provider Family Medicine | DX: Z22.7 Latent tuberculosis (principal) | CPT/HCPCS: 87070; 87205 ==

== ENCOUNTER 2023-11-04 11:26 | Outpatient (CLI) | payer MEDICARE, OTHER, SELFPAY ==
[2023-11-04 12:39] LABS: Influenza A QL RT-PCR Negative (Negative); Influenza B QL RT-PCR Negative (Negative); RSV RNA, RT-PCR Negative (Negative); SARS-CoV-2 RNA PCR Negative (Negative)
[2023-11-04 13:19] LABS: Folic Acid > 20.0 ng/mL (2.76->20)
== END 2023-11-04 11:27 | disposition home or self-care (01) ==
LOC: ANHLAB 11:28
PROVIDERS: PCP Family Medicine; Referring Provider Family Medicine; Visit Provider Nurse Practitioner Family
DX: K14.1 Geographic tongue (principal); U07.1 COVID-19
CPT/HCPCS: 36415; 82607; 82746; 87637

== ENCOUNTER 2023-11-16 09:14 | Outpatient (CLI) | payer MEDICARE, SELFPAY | END 2023-11-16 09:15 | disposition home or self-care (01) | LOC: CHSLAB 09:16 | PROVIDERS: PCP Family Medicine; Visit Provider Family Medicine | DX: Z22.7 Latent tuberculosis (principal) | CPT/HCPCS: 87070; 87205 ==

== ENCOUNTER 2023-11-23 10:08 | Outpatient (CLI) | payer MEDICARE, OTHER, SELFPAY ==
--- NOTE | ~2023-11-23 | XR_ITS ---
EXAM: XR hand RT min 3V, XR hand LT min 3V DATE: 11/23/2023 10:24 HISTORY: M18.9 - Osteoarthritis of first carpometacarpal joint. COMPARISON: None available. FINDINGS: Decreased mineralization. No fracture or dislocation. No lytic or blastic lesion. Moderate degenerative changes at the first CMC joints, worse on the right. No erosion or periosteal change. V ascular calcifications. Amorphous calcific deposition over the left ulnar styloid process. Possible t iny right ulnar styloid erosion adjacent soft tissue swelling. IMPRESSION: Osteopenia. Moderate bilateral first CMC joint osteoarthritis, worse on the right. Extensor carpi ulnaris calcific tendinitis on the left. Tiny right ulnar styloid erosion, a favored site for rheumatoid arthritis, often accompanied by exten sor carpi ulnaris tendinopathy, correlate with rheumatologic labs. Reviewed, dictated and finalized at [facility]. IMPRESSION: Osteopenia. Moderate bilateral first CMC joint osteoarthritis, worse on the right. Extensor carpi ulnaris calcific tendinitis on the left. Tiny right ulnar styloid erosion, a favored site for rheumatoid arthritis, ofte n accompanied by extensor carpi ulnaris tendinopathy, correlate with rheumatolo gic labs.
== END 2023-11-23 10:09 | disposition home or self-care (01) ==
LOC: ANHIMG 10:11
PROVIDERS: PCP Family Medicine; Visit Provider Plastic Surgery
DX: M18.0 Bilateral primary osteoarthritis of first carpometacarpal joints (principal); M65.242 Calcific tendinitis, left hand
CPT/HCPCS: 73130

== ENCOUNTER 2023-12-28 15:25 | Outpatient (CLI) | payer MEDICARE, OTHER, SELFPAY ==
--- NOTE | ~2023-12-28 | XR_ITS ---
EXAMINATION: XR knee LT 3V DATE: 12/28/2023 15:40 INDICATION: Left artificial knee joint. Left knee pain. TECHNIQUE: 3 views of left knee were obtained. COMPARISON: Left knee radiographs 09/29/2023 FINDINGS: There is a total left knee arthroplasty with patellar resurfacing in near-anatomic alignmen t. No fracture. No periprosthetic lucency to suggest loosening or infection. There is a moderate-size d knee joint effusion. IMPRESSION: 1. Total left knee arthroplasty in near-anatomic alignment. 2. Moderate-sized left knee joint effusion. Reviewed, dictated and finalized at location A.
== END 2023-12-28 15:26 | disposition home or self-care (01) ==
LOC: ANHIMG 15:26
PROVIDERS: PCP Family Medicine; Visit Provider Orthopaedic Surgery
DX: Z96.652 Presence of left artificial knee joint (principal); M25.462 Effusion, left knee
CPT/HCPCS: 73562

== ENCOUNTER 2024-01-06 13:00 | Outpatient (RCR) | payer MEDICARE, OTHER, SELFPAY ==
--- NOTE | 2023-12-07 13:55 | OTOPEVAL1 ---
Assessment and note entered by ALEX Segovia/Kimberlee, CHT Evaluation Information 12/07/23 Diagnosis Osteoarthritis of first carpometacarpal joint, bilaterally Subjective Information Patient reports she had a knee replacement 4 months ago and had been using a cane in her right hand. She noticed the base of her thumb getting more swollen and painful with this. X-rays show moderate degenerative changes at bilateral 1st CMC joint. She is right handed. Reports difficulties with opening jars, peeling potatoes, chopping food , etc. In the summer time they do a lot of gardening, chopping, and sammie. She reports my hands are very important to me . Assessment OT Clinical Summary Patient referred to OT with bilateral thumb CMC OA . She presents with preserved ROM, but pain with use, particularly with any sort of gripping or pinching activities. Today a custom, hand based thumb spica orthotic was fabricated for patient to wear with activity. Issued active ROM HEP and she completes with excellent understanding. Continued skilled OT indicated for use of modalities, education on joint protection techniques, manual therapy, therapeutic exercise, and HEP progression to facilitate reduced pain and improved functional use of bilateral hands. Plan of Care Interventions Therapeutic Exercise,Manual Therapy,Therapeutic Activities,Hot Pack/Cold Pack,Check Out for Orthotic/Pr,Ultrasound,Paraffin OT Services Indicated Yes Treatment Frequency and 1x/week for 5 visits Duration These treatments will address the objective and functional deficits as defined above. The patient will be advanced safely and appropriately in order for the patient to progress towards his/her prior level of function. Additional exercises will be introduced and as well as a comprehensive home exercise program upon discharge, if needed, ?to ensure carryover of functional gains achieved in the clinic. This treatment plan has been reviewed and agreement upon by the patient.
--- NOTE | 2023-12-07 13:56 | OPREHPOC ---
Outpatient Therapy Plan of Care This is a Multidisciplinary Plan of Care that may contain components documented by all disciplines (PT, OT, and ST.) OT Problem 1 OT Problem #1 Knowledge Deficit OT Goal 1 Goal 1. Patient to be independent with instructed materials. Target Visit 5 OT Problem 2 OT Problem #2 Pain OT Goal 1 Goal 1. Patient to report thumb pain at 2/10 at worst . 2. Patient to report reduced bilateral thumb pain with ADLs. Target Visit 5 OT Problem 3 OT Problem #3 Impaired Strength OT Goal 1 Goal 1. Patient to be able to complete circle saw operator and pinch strengthening with yellow theraputty x5 minutes without pain. Target Visit 5
--- NOTE | 2024-01-06 13:45 | OTOPDC ---
Assessment and note entered by Blayne Pro, ALEX/Kimberlee, CHT OT Discharge Notificiation 01/06/24 Diagnosis Osteoarthritis of first carpometacarpal joint, bilaterally Subjective Information Patient reports she hasn't noticed much benefit from therapy. She states she has been using her splint when working in the yard and when chopping veggies. She states the brace helps protect her thumb during activity and she has been having less pain when the splint is on. She continues to have pain at night and it sometimes wakes her up at night. Reported Pain Level Pain Score 0,0: Self Report Additional Pain Score Comments Patient reports no pain at rest in either thumb. At worst the right thumb gets up to is 3/10. This has improved from 5/10. At worst the left thumb gets up to 1/10. This has improved from 2/10. Assessment OT Clinical Summary Patient referred to OT with bilateral thumb CMC OA . She continues to have intact ROM of bilateral wrists and thumbs with some discomfort with ROM at times. She continues to have pain with thumb use, but overall her pain numbers are lower. She demonstrates excellent understanding of joint protection techniques for ADLs. We have progressed her HEP to include strengthening of the muscles around the CMC joint and she has no pain with these. Reviewed HEP and recommending she continue to work on pain-free strengthening, continue joint protection techniques, and continue to immobilize PRN. She verbalizes excellent understanding of all materials and is in agreement with discharge. D/C OT with HEP.
== END 2024-01-07 10:01 | disposition home or self-care (01) ==
LOC: ANHGOSHOT 13:00
PROVIDERS: PCP Family Medicine; Visit Provider Plastic Surgery
DX: M18.9 Osteoarthritis of first carpometacarpal joint, unspecified (principal)
CPT/HCPCS: 97018; 97110; 97140; 97165

== ENCOUNTER 2024-03-10 12:10 | Outpatient (CLI) | payer MEDICARE, OTHER, SELFPAY ==
[2024-03-10 12:53] LABS: Erythrocyte Sedimentation Rate 19 mm/hr (0-20)
[2024-03-10 13:30] LABS: CRP < 0.5 mg/dL (<1.0)
== END 2024-03-10 12:11 | disposition home or self-care (01) ==
PROVIDERS: PCP Family Medicine; Visit Provider Orthopaedic Surgery
DX: M25.462 Effusion, left knee (principal); Z96.659 Presence of unspecified artificial knee joint
CPT/HCPCS: 36415; 85652; 86140

== ENCOUNTER 2024-04-09 10:47 | Emergency (ER) | payer MEDICARE, OTHER, SELFPAY ==
[2024-04-09 10:56] VITALS: BP 133/41; PULSE 80; RESP 20; TEMP 37.3; O2SAT 98
--- NOTE | 2024-04-09 11:07 | ED.URI ---
HPI - URI/Sore Throat General Chief Complaint: Upper Respiratory Infection Stated Complaint: flu and sinus issues Time Seen by Provider: 04/09/24 11:08 Source: patient, family, RN notes reviewed and old records reviewed Mode of arrival: ambulatory Limitations: no limitations History of Present Illness HPI Narrative: 68 year old female who presents to express care with complaints of 3-4 days of head/sinus congestion drainage pain, cough with fatigue Patient reports that she did have some vomiting and diarrhea yesterday. Patient reports that she has not had any known fevers but has had some chills. Patient reports that she has taken sinus medications and some Tussin cough syrup for her cough. Patient reports that she took home COVID test at onset of her symptoms. Patient reports that was ill prior to her being sick. MD elicited complaint: cough, rhinorrhea, nasal congestion, sinus pain and other (chills, headache and fatigue) Pertinent past history: other (sinus problems) Onset (ago): day(s) (3-4 days) Consistency: constant Pain scale (0-10): 8 Able to tolerate fluids by mouth: Yes Treatments prior to arrival: other (Xyzal, nasal spray and some tussin cough syrup) Related Data Home Medications Medication Instructions Recorded Confirmed cholecalciferol (vitamin D3) 50 50 mcg PO DAILY 12/09/19 04/09/24 mcg (2,000 unit) tablet (Vitamin D3) atorvastatin 40 mg tablet 40 mg PO DAILY 04/29/21 04/09/24 ipratropium bromide 21 mcg (0.03 2 spray intranasal TID CONGESTION 04/29/21 04/09/24 %) nasal spray multivitamin 1 tablet PO DAILY 04/29/21 04/09/24 amlodipine 10 mg tablet 10 mg PO DAILY 01/21/22 04/09/24 insulin aspart U-100 100 unit/mL See Rx Instructions .Route .COMPLEX 01/25/22 04/09/24 subcutaneous solution (Novolog U-100 Insulin aspart) levocetirizine 5 mg tablet (Xyzal) 5 mg PO HS PRN Congestion 08/14/22 04/09/24 lactobacillus combination no.8 3 3 cell PO 3XW 07/21/23 04/09/24 billion cell capsule Miralax 17 g PO DAILY PRN Constipation 10/20/23 04/09/24 calcium phos,tribasic 260 mg-D3 25 tablet PO DAILY 04/09/24 mcg-herbal 50 mg chewable tablet (Alive Calcium-Vitamin D3) magnesium 200 mg tablet 200 mg PO DAILY 04/09/24 04/09/24 Allergies Allergy/AdvReac Type Severity Reaction Status Date / Time mold Allergy Unknown Congested Verified 04/09/24 11:04 cat dander Allergy Other Verified 04/09/24 11:04 grass pollen Allergy Other Verified 04/09/24 11:04 rifampin Allergy Fatigued Verified 04/09/24 11:04 weed pollen Allergy Other Verified 04/09/24 11:04 levofloxacin AdvReac Nausea Verified 04/09/24 11:04 dust Allergy Other Uncoded 04/09/24 11:04 Review of Systems Review of Systems: CONSTITUTIONAL: Reports malaise, positive for chills, sweats, no known fevers, fatigue EYES: Denies visual changes, redness, or discharge. ENT: Reports rhinorrhea, congestion, sinus pain,no otalgia and no sore throat. CARDIOVASCULAR: Denies chest pain, palpitations, or edema. RESPIRATORY: Reports cough.? Denies dyspnea. GASTROINTESTINAL: Denies abdominal pain,positive for one day of nausea, vomiting, diarrhea SKIN: Denies rash or itching. MUSCULOSKELETAL: Denies myalgia. NEUROLOGIC: Reports headache. All systems reviewed & are unremarkable except as noted in HPI and below PMFSH Past Medical History Medical History Allergies Currently receiving allergy shots. Arthritis Bilateral hip pain Fall Hypercholesterolemia Hypertension Latent tuberculosis Lumbar spine pain Obstructive sleep apnea Intolerant to CPAP. Pelvic pain Type 1 diabetes mellitus Surgical History Surgical History History of 2 sections History of appendectomy History of cholecystectomy History of hysterectomy (2002) History of left knee replacement History of trigger finger Multiple, bilateral trigger fin
== END 2024-04-09 11:35 | disposition home or self-care (01) ==
PROVIDERS: Emergency Provider Registered Nurse; PCP Family Medicine
DX: U07.1 COVID-19 (principal); M19.90 Unspecified osteoarthritis, unspecified site; E78.00 Pure hypercholesterolemia, unspecified; I10 Essential (primary) hypertension; E10.9 Type 1 diabetes mellitus without complications; Z96.652 Presence of left artificial knee joint; G47.33 Obstructive sleep apnea (adult) (pediatric); Z91.198 Patient's noncompliance with other medical treatment and regimen for other reason
CPT/HCPCS: 99213; G0463

== ENCOUNTER 2024-04-20 21:38 | Emergency (ER) | payer MEDICARE, OTHER, SELFPAY ==
[2024-04-20 22:22] VITALS: BP 155/75; PULSE 74; RESP 20; TEMP 36.8; O2SAT 99
[2024-04-21 02:49] VITALS: BP 165/61; PULSE 73; RESP 18; O2SAT 99
--- NOTE | 2024-04-21 03:12 | ED.ANIMALBIT ---
HPI - Animal Bite General Chief Complaint: Animal Bite Stated Complaint: cat bite Time Seen by Provider: 04/21/24 02:53 History of Present Illness HPI narrative: 68-year-old female present to the emergency department for evaluation for a cat bite to her left hand. Patient was taking her cat to the vet today when it bit her on her left hand. Patient does have erythema the dorsum of the left hand. Related Data Home Medications Medication Instructions Recorded Confirmed cholecalciferol (vitamin D3) 50 50 mcg PO DAILY 12/09/19 04/12/24 mcg (2,000 unit) tablet (Vitamin D3) atorvastatin 40 mg tablet 40 mg PO DAILY 04/29/21 04/12/24 ipratropium bromide 21 mcg (0.03 2 spray intranasal TID CONGESTION 04/29/21 04/12/24 %) nasal spray multivitamin 1 tablet PO DAILY 04/29/21 04/12/24 amlodipine 10 mg tablet 10 mg PO DAILY 01/21/22 04/12/24 insulin aspart U-100 100 unit/mL See Rx Instructions .Route .COMPLEX 01/25/22 04/12/24 subcutaneous solution (Novolog U-100 Insulin aspart) levocetirizine 5 mg tablet (Xyzal) 5 mg PO HS PRN Congestion 08/14/22 04/12/24 lactobacillus combination no.8 3 3 cell PO 3XW 07/21/23 04/12/24 billion cell capsule Miralax 17 g PO DAILY PRN Constipation 10/20/23 04/12/24 calcium phos,tribasic 260 mg-D3 25 tablet PO DAILY 04/09/24 04/12/24 mcg-herbal 50 mg chewable tablet (Alive Calcium-Vitamin D3) magnesium 200 mg tablet 200 mg PO DAILY 04/09/24 04/12/24 Allergies Allergy/AdvReac Type Severity Reaction Status Date / Time mold Allergy Unknown Congested Verified 04/20/24 22:32 cat dander Allergy Other Verified 04/20/24 22:32 grass pollen Allergy Other Verified 04/20/24 22:32 rifampin Allergy Fatigued Verified 04/20/24 22:32 weed pollen Allergy Other Verified 04/20/24 22:32 levofloxacin AdvReac Nausea Verified 04/20/24 22:32 dust Allergy Other Uncoded 04/20/24 22:32 Review of Systems Review of Systems: All systems reviewed & are unremarkable except as noted in HPI and below PMFSH Past Medical History Medical History (Updated 04/22/24 @ 00:01 by Bharati Bustillos) Allergies Currently receiving allergy shots. Arthritis Bilateral hip pain COVID COVID COVID-19 Fall Hypercholesterolemia Hypertension Latent tuberculosis Lumbar spine pain Obstructive sleep apnea Intolerant to CPAP. Pelvic pain Type 1 diabetes mellitus Surgical History Surgical History History of 2 sections History of appendectomy History of cholecystectomy History of hysterectomy (2002) History of left knee replacement History of trigger finger Multiple, bilateral trigger finger releases. Family History Family History Sibling Diabetes mellitus Family history of kidney disease Mother Family history of osteoporosis Family history of mental disorder Family history of cardiovascular disease Family history of coronary artery disease Family history of congestive heart failure Family history of hearing loss Father Family history of cardiovascular disease Cerebrovascular accident Family history of chronic obstructive pulmonary disease Diabetes mellitus Emphysema lung Sibling Heart disease End stage renal disease Valvular heart disease Other Hypertension Social History Social History Social History: Surrogate decision maker: Glen Young, spouse. Code status: Full code. Smoking status: Never smoker Second hand tobacco smoke exposure: No Alcohol intake: current Alcohol use details: 1 GLASS WINE/MONTH Substance use: never Substance use type: does not use Do You Feel Safe in your Home?: Yes Lack of Transportation: No Lack of Food: Never True Current Housing: I Have Housing Concerned About Future Housing: No Difficulty Paying Gas/Electric Bills: No Difficulty Paying for Meds:
[2024-04-21] MEDS: AMPICILLIN SULB 3 GM/NS 100 ML 3 GM/100 ML VIAL IVPB (03:31)
[2024-04-21 04:33] VITALS: BP 142/80; PULSE 81; RESP 16; O2SAT 100
== END 2024-04-21 05:20 | disposition home or self-care (01) ==
PROVIDERS: Emergency Provider Emergency Medicine; PCP Family Medicine
DX: S61.452A Open bite of left hand, initial encounter (principal); I10 Essential (primary) hypertension; E10.9 Type 1 diabetes mellitus without complications; E78.00 Pure hypercholesterolemia, unspecified; M19.90 Unspecified osteoarthritis, unspecified site; G47.33 Obstructive sleep apnea (adult) (pediatric); Z96.652 Presence of left artificial knee joint; Z86.16 Personal history of COVID-19; Z90.49 Acquired absence of other specified parts of digestive tract; Z90.710 Acquired absence of both cervix and uterus; Z79.4 Long term (current) use of insulin; Z79.899 Other long term (current) drug therapy; W55.01XA Bitten by cat, initial encounter
CPT/HCPCS: 96365; 99284; J0295

== ENCOUNTER 2024-06-23 16:08 | Emergency (ER) | payer MEDICARE, OTHER, SELFPAY ==
[2024-06-23 16:15] VITALS: BP 143/49; PULSE 82; RESP 16; TEMP 36.6; O2SAT 100
[2024-06-23 16:26] VITALS: BP 143/49; PULSE 82; RESP 16; TEMP 36.6; O2SAT 100
--- NOTE | 2024-06-23 16:58 | ED_ITS ---
HPI - URI/Sore Throat General Chief Complaint: Upper Respiratory Infection Stated Complaint: Sinus Pain/Cough Time Seen by Provider: 06/23/24 16:58 Source: patient Mode of arrival: ambulatory Limitations: no limitations History of Present Illness HPI Narrative: 68 yo F presents with c/o congestion, sinus pressure, headache, cough for 3 days. No CP or SOB. Afebrile. Denies N/V/D. Taking daily allergy medications but no other medications to treat her symptoms. Pt states her had similar symptoms and got her sick. Husbands symptoms have resolved. All systems reviewed and negative except as noted above. Related Data Home Medications Medication Instructions Recorded Confirmed atorvastatin 40 mg tablet 40 mg PO DAILY 04/29/21 06/23/24 amlodipine 10 mg tablet 10 mg PO DAILY 01/21/22 06/23/24 insulin aspart U-100 100 unit/mL See Rx Instructions .Route .COMPLEX 01/25/22 06/23/24 subcutaneous solution (Novolog U-100 Insulin aspart) lisinopril 40 mg tablet 40 mg PO DAILY 06/23/24 06/23/24 Allergies Allergy/AdvReac Type Severity Reaction Status Date / Time mold Allergy Unknown Congested Verified 06/23/24 16:20 cat dander Allergy Other Verified 06/23/24 16:20 grass pollen Allergy Other Verified 06/23/24 16:20 weed pollen Allergy Other Verified 06/23/24 16:20 levofloxacin AdvReac Nausea Verified 06/23/24 16:20 rifampin AdvReac Fatigued Verified 06/23/24 16:20 dust Allergy Other Uncoded 06/23/24 16:20 Review of Systems Review of Systems: CONSTITUTIONAL: Denies fever, chills, or sweats. EYES: Denies visual changes, redness, or discharge. ENT: Reports rhinorrhea, congestion. Denies sore throat, or otalgia. CARDIOVASCULAR: Denies chest pain, palpitations, or edema. RESPIRATORY: reports cough. Denies dyspnea. GASTROINTESTINAL: Denies abdominal pain, nausea, vomiting, or diarrhea. GENITOURINARY: Denies dysuria or hematuria. SKIN: Denies rash or itching. MUSCULOSKELETAL: Denies back pain, joint pain, or myalgia. NEUROLOGIC: Denies headache, numbness, or weakness. PSYCHIATRIC: Denies anxiety or depression. All other systems reviewed are negative, except as documented in HPI. [facility] Past Medical History Medical History (Updated 06/23/24 @ 17:06 by Chelly Lopez NP) Allergies Currently receiving allergy shots. Arthritis Bilateral hip pain COVID COVID COVID-19 Fall Hypercholesterolemia Hypertension Latent tuberculosis Lumbar spine pain Obstructive sleep apnea Intolerant to CPAP. Pelvic pain Type 1 diabetes mellitus Surgical History Surgical History History of 2 sections History of appendectomy History of cholecystectomy History of hysterectomy (2002) History of left knee replacement History of trigger finger Multiple, bilateral trigger finger releases. Family History Family History Sibling Diabetes mellitus Family history of kidney disease Mother Family history of osteoporosis Family history of mental disorder Family history of cardiovascular disease Family history of coronary artery disease Family history of congestive heart failure Family history of hearing loss Father Family history of cardiovascular disease Cerebrovascular accident Family history of chronic obstructive pulmonary disease Diabetes mellitus Emphysema lung Sibling Heart disease End stage renal disease Valvular heart disease Other Hypertension Social History Social History Social History: Surrogate decision maker: Glen Young, spouse. Code status: Full code. Smoking status: Never smoker Second hand tobacco smoke exposure: No Alcohol intake: current Alcohol use details: 1 GLASS WINE/MONTH Substance use: never Substance use type: does not use Do You Feel Safe in your Home?: Yes Lack of Transportation: No Lack of Food: Never True Current Housing: I Have Housing Concerned About Future Housing: No Difficulty Paying Gas/Electric Bills: No Difficulty Paying for Meds: No Currently Unemployed: No Education: High School Diploma/GED Difficulty w/ Childcare or Family Care: No Living arrangements: with family Additional living arrangements comments: The patient lives with her in [place]. Occupation/Education: occupation Spiritual care concerns: No Comments At time of signature, agree with nursing past medical, surgical, social and family history. There is no relevant family history pertinent to the presenting complaint. Exam Narrative: GENERAL: This is a well-nourished, well-developed patient, in no apparent distress. HEAD: normocephalic, atraumatic. EYES: PERRL. Sclera clear/white. Vision is grossly intact. EARS: External ears normal, auditory canals clear and without drainage, clear fluid to lateral TMs without erythema or perforation. Hearing grossly intact. NOSE: External nose normal with mild congestion, some clear nasal drainage, erythema to nares. maxillary sinus tenderness on palpation. THROAT: Mucous membranes moist, posterior pharynx clear. NECK: Neck supple, non-tender without lymphadenopathy, masses or thyromegaly. CARDIOVASCULAR: Regular rate and rhythm without murmurs, gallops, or rubs. RESPIRATORY: Clear to auscultation. Breath sounds equal bilaterally. No wheezes, rales, or rhonchi. SKIN: warm, Dry, intact with no suspicious lesions or rash, good texture and turgor. NEURO: awake, alert, and oriented to person, place and time. There were no obvious focal neurologic abnormalities. EXTREMITIES: No joint tenderness, effusion, or edema noted. Course Course Level of Care: Express Care Visit Vital Signs Vital signs: Vital Signs Temperature 36.6 C 06/23/24 16:15 Pulse Rate 82 06/23/24 16:15 Respiratory Rate 16 06/23/24 16:15 Blood Pressure 143/49 H 06/23/24 16:15 Pulse Oximetry 100 06/23/24 16:15 Oxygen Delivery Room Air 06/23/24 16:15 Temperature 36.6 C 06/23/24 16:26 Pulse Rate 82 06/23/24 16:26 Respiratory Rate 16 06/23/24 16:26 Blood Pressure 143/49 H 06/23/24 16:26 Pulse Oximetry 100 06/23/24 16:26 Oxygen Delivery Room Air 06/23/24 16:26 reviewed MDM - URI/Sore Throat MDM Narrative Medical decision making narrative: pt met me a exam room door, standing in doorway, with arms crossed states she was antsy and waited a long time . explained to pt wait time, multiple pt's at . after exam, explained exam findings to pt. attempted to educate pt regarding her symptoms and sinusitis. She refused to listened and was very hateful yelling im 68 years old and shameka been dealing with sinuses my whole life and i know i need an antibiotic and im type 1 diabetic . pt continued to interrupt me and i was not able to speak so i left the room. pt given abx today because she insisted that she be prescribed one. she is nontoxic. lungs clear to auscultutation. She has not taken any OTC meds to treat her symptoms other than her daily allergy meds. Patient is aware of diagnosis, understands and agrees to treatment plan. Anticipatory guidance given. Patient agrees to follow-up as directed and is aware of reasons to seek care at the emergency department. Portions of this record may have been created with voice recognition software Differential Diagnosis Differential diagnosis: Likely upper respiratory infection, sinusitis and viral infection Discharge Plan Discharge Clinical Impression: Acute bacterial sinusitis Patient Disposition: Home, Self-Care Condition: Stable Instructions: Antibiotic Form, Sinusitis (ED) Additional Instructions: Your symptoms are viral and may last 10 to 14 days. You were given an antibiotic today because you insisted that you were very sick and needed one. Continue to take your allergy medications daily. Take an over the counter medication to treat congestion, such as sudafed. Drink at least 64 ounces of water a day. See your doctor if symptoms not improving. Prescriptions: New doxycycline hyclate 100 mg tablet 100 mg PO DAILY 7 Days Qty: 7 0RF No Action insulin aspart U-100 [Novolog U-100 Insulin aspart] 100 unit/mL solution See Rx Instructions .ROUTE .COMPLEX Rx Instructions: PER SENSIOR DEVICE lisinopril 40 mg tablet 40 mg PO DAILY atorvastatin 40 mg tablet 40 mg PO DAILY amlodipine 10 mg tablet 10 mg PO DAILY hydrochlorothiazide 25 mg tablet 25 mg PO DAILY Qty: 90 1RF Follow-up/Referrals: Amador Huber MD [Primary Care Provider] - Time of Disposition: 17:05
== END 2024-06-23 17:08 | disposition home or self-care (01) ==
PROVIDERS: Emergency Provider Nurse Practitioner Family; PCP Family Medicine
DX: J01.90 Acute sinusitis, unspecified (principal); I10 Essential (primary) hypertension; E78.00 Pure hypercholesterolemia, unspecified; E10.9 Type 1 diabetes mellitus without complications; G47.33 Obstructive sleep apnea (adult) (pediatric); Z91.198 Patient's noncompliance with other medical treatment and regimen for other reason; M19.90 Unspecified osteoarthritis, unspecified site; Z86.16 Personal history of COVID-19; Z96.652 Presence of left artificial knee joint
CPT/HCPCS: 99213; G0463

== ENCOUNTER 2024-12-05 12:53 | Outpatient (CLI) | payer MEDICARE, OTHER, SELFPAY ==
--- NOTE | ~2024-12-05 | MR_ITS ---
MRI of the cervical spine Clinical History: Pain Technique: Axial T2-weighted and gradient images, and sagittal T1-weighted, T2-weighted, and STIR jf ges were acquired. Findings: There is no fracture or subluxation of the cervical spine. Vertebral bodies maintain normal height and alignment. No suspicious bone marrow signal abnormality seen. At C2-C3, there is no disc bulge or herniation. No spinal canal stenosis, cord compression, or neural foraminal narrowing. At C3-C4, there is no significant disc bulge or herniation. No spinal canal stenosis, cord compressio n, or neural foraminal narrowing. At C4-C5, there is moderate degenerative distended with minimal disc osteophyte complex. No spinal ca nal stenosis or cord compression. No definite neural foraminal narrowing. There is left facet arthrop athy. At C5-C6, there is advanced degenerative disc narrowing. There is no significant disc bulge or hernia tion. No spinal canal stenosis or cord compression. No definite neural foraminal narrowing. At C6-C7, there is advanced degenerative disc narrowing, with minimal disc bulge. No spinal canal adry nosis or cord compression. No right neural foraminal narrowing. Left neural foramen probably narrowed . No abnormal signal seen in the spinal cord. Paravertebral soft tissues are unremarkable. Impression: Degenerative spondylosis overall, as detailed above. Reviewed, dictated and finalized at [facility]. Impression: Degenerative spondylosis overall, as detailed above.
--- NOTE | ~2024-12-05 | XR_ITS ---
Cervical Spine: AP, lateral, open-mouth views Clinical History: Pain Findings: The normal lordotic curve is maintained. No fracture seen. There is minimal grade 1 retroli sthesis of C5 over C6. There is severe degenerative disc narrowing at C5-C6. There is moderate degene rative disc narrowing at C6-C7. There is moderate facet arthropathy.. Pre-vertebral soft tissues are unremarkable. Impression: Advanced degenerative spondylosis, especially at C5-C6 and C6-C7. Grade 1 retrolisthesis of C5 over C6. Reviewed, dictated and finalized at location . Impression: Advanced degenerative spondylosis, especially at C5-C6 and C6-C7. Grade 1 retrolisthesis of C5 over C6.
--- NOTE | ~2024-12-05 | MR_ITS ---
MRI of the lumbar spine Clinical History: Worsening pain Technique: Axial T2-weighted images, and sagittal T1-weighted, T2-weighted, and T2 fat-sat images wer e acquired. Findings: There is no fracture or sublocation of the lumbar spine. Vertebral bodies maintain normal a lignment. No bone marrow signal abnormality seen. At L1-L2, there is no disc bulge or herniation. There is minimal facet arthropathy. No central canal stenosis or neural foraminal narrowing. At L2-L3, there is minimal degenerative disc narrowing. No disc bulge or herniation. There is minimal facet arthropathy. No central canal stenosis or neural foraminal narrowing. At L3-L4, there is no disc bulge or herniation. No spinal canal stenosis or neural foraminal narrowin g. At L4-L5, there is moderate degenerative disc narrowing. There is mild disc bulge with moderate facet arthropathy. No central canal stenosis or neural foraminal narrowing. At L5-S1, there is disc desiccation with mild bulge and moderate to advanced facet arthropathy. No sp inal canal stenosis. There is minimal right neural foraminal narrowing. Paravertebral soft tissues are unremarkable. Impression: Mild degenerative spondylosis overall, as detailed above. Reviewed, dictated and finalized at location . Impression: Mild degenerative spondylosis overall, as detailed above.
--- NOTE | ~2024-12-05 | XR_ITS ---
Lumbosacral Spine: AP and lateral views Clinical History: Pain Findings: The normal lordotic curve is maintained. The vertebral bodies and posterior elements are i ntact. There is mild degenerative disc narrowing L4-L5. There is advanced facet arthropathy from L4 t hrough S1 The sacroiliac joints are normally outlined. Impression: Advanced facet arthropathy at the lower lumbar spine. Reviewed, dictated and finalized at location . Impression: Advanced facet arthropathy at the lower lumbar spine.
--- OUTSIDE RECORDS SUMMARY | 2024-12-05 13:09 | XMS_ITS | Clinical Summary ---
Author Organization [facility] [address] Address [address] [place] [address] Care Team Providers Care Thread Trimmer Name Role Phone Amador Huber MD Primary Care Provider [phone] Allergies Active Allergy Reactions Criticality Noted Date Comments Levofloxacin Nausea only Low 12/17/2021 Mold Rhinitis,Sneezing Low 12/17/2021 Medications multivitamin capsule Take 1 capsule by mouth daily Active magnesium oxide 400 mg magnesium capsule Take 400 mg by mouth daily Active ibuprofen (ADVIL,MOTRIN ) 400 mg tablet Take 1 tablet (400 mg total) by mouth every 6 (six) hours as needed for pain Active cholecalcifer ol (VITAMIN D-3) 2000 unit capsule Take 1 capsule (2,000 Units total) by mouth daily Active levocetirizin e (XYZAL) 5 mg tablet Take 1 tablet (5 mg total) by mouth every evening Active ipratropium (ATROVENT) 21 mcg (0.03 %) nasal spray INSTILL 2 SPRAY(S) INTRANASALLY 3 TIMES A DAY 30 DAY(S) 04/09/20 21 Active glucagon (Baqsimi) 3 mg/actuation spray,non-aer osol Use for severe hypoglycemia E10.65 1 each 3 07/16/20 22 Active pyridoxine (VITAMIN B-6) 50 mg tablet Take 1 tablet (50 mg total) by mouth daily Active NovoLOG 100 unit/mL vial for injection 60 units per day pump DX: E10.9 60 mL 3 11/15/19 24 Active amLODIPine (NORVASC) 10 mg tablet TAKE 1 TABLET BY MOUTH EVERY DAY 90 tablet 3 02/10/20 24 Active atorvastatin (LIPITOR) 40 mg tablet TAKE 1 TABLET BY MOUTH EVERY DAY 90 tablet 3 05/08/20 24 Active lisinopriL (PRINIVIL,ZES TRIL) 40 mg tablet Take 1 tablet (40 mg total) by mouth daily 60 tablet 2 05/17/20 24 Active hydroCHLOROth iazide (HYDRODIURIL) 25 mg tablet TAKE 1 TABLET (25 MG TOTAL) BY MOUTH DAILY. 90 tablet 2 10/04/19 25 Active cyclobenzapri ne (FLEXERIL) 5 mg tablet Take 1 tablet (5 mg total) by mouth 3 (three) times a day as needed for muscle spasms Active insulin glargine (LANTUS, SEMGLEE) 100 unit/mL vial for injection Inject 20 units,1 times per day, TDD 20 units 2000 mL 3 06/10/20 21 021 Discontinued glucagon 1 mg/0.2 mL auto-injector Inject 1 mg under the skin as needed (hypoglycemia) 0.2 mL 1 07/30/20 21 025 Discontinued(T herapy completed) ISONIAZID ORAL Take 100 mg by mouth 025 Discontinued(T herapy completed) Active Problems Problem Noted Date Diagnosed Date Osteoporosis 07/20/2023 Assessment & Plan (08/03/2024 1:29 PM APPLICATION INFRASTRUCTURE ENGINEER): Will plan for 2nd Reclast in late September/early October. We discussed that severity of the acute phase reaction is usually less on the second dose. She can take Tylenol or ibuprofen prophylactically. Assessment & Plan (05/02/2024 2:19 PM CDT): S/p 1 dose of Reclast in October 2023. Assessment & Plan (01/26/2024 3:26 PM CDT): S/p 1 dose of Reclast in October 2023. Will plan for a second dose one year from that date. Assessment & Plan (10/25/2023 7:09 PM CDT): S/p Reclast earlier today. Assessment & Plan (07/20/2023 7:21 PM APPLICATION INFRASTRUCTURE ENGINEER): Had long discussion about need to treat osteoporosis and treatment options. Will proceed with Reclast. We discussed possible side effects. Continue calcium, vitamin D, and weight-bearing exercise. 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 Assessment & Plan (10/25/2023 7:09 PM CDT): She has nearly completed INH at this point. LFT's being monitored. Assessment & Plan (07/20/2023 7:21 PM APPLICATION INFRASTRUCTURE ENGINEER): INH and B6. Assessment & Plan (04/19/2023 4:11 PM CDT): On INH currently. Has repeat LFT's ordered. Assessment & Plan (12/24/2022 11:22 AM CDT): I recommended that she start treatment. Plantar fasciitis 09/14/2022 Assessment & Plan (12/24/2022 11:21 AM CDT): She will ask her acetylene plant operator to remove the embedded suture. Assessment & Plan (09/14/2022 10:41 AM APPLICATION INFRASTRUCTURE ENGINEER): Doing well after surgery. Vitamin D deficiency 12/17/2021 Tongue swelling 09/19/2021 Assessment & Plan (09/19/2021 3:30 PM APPLICATION INFRASTRUCTURE ENGINEER): Now resolved. Benign exam. Likely mold allergy. Type 1 diabetes mellitus without complication Assessment & Plan (08/03/2024 1:30 PM APPLICATION INFRASTRUCTURE ENGINEER): A1c at goal on current therapy. Continue current eye exams. Assessment & Plan (05/02/2024 2:22 PM CDT): A1c at goal on current therapy. Eye exams current. No neuropathy symptoms. Assessment & Plan (01/26/2024 1:33 PM CDT): A1c at goal on current therapy. Assessment & Plan (10/25/2023 7:10 PM CDT): A1c at goal on current therapy. Assessment & Plan (07/20/2023 7:21 PM APPLICATION INFRASTRUCTURE ENGINEER): Glucoses at goal on pump/CGM report. Continue current settings. During surgery, if allowed to continue pump and CGM, set temp target to 150 mg/dl to avoid hypoglycemia. Assessment & Plan (04/19/2023 4:11 PM CDT): A1c at goal on current therapy. Assessment & Plan (12/24/2022 11:21 AM CDT): A1c nearly at goal. No adjustments to pump settings today. I recommend that she upgrade to the 780G Medtronic pump. Assessment & Plan (09/14/2022 10:23 AM APPLICATION INFRASTRUCTURE ENGINEER): A1c a bit higher today, but TIR very high on her CGM/pump report since resumption of auto mode. Stay on same pump settings. Eye exam tomorrow. Labs due next visit. Assessment & Plan (06/17/2022 10:46 AM APPLICATION INFRASTRUCTURE ENGINEER): A1c at goal. Having lows overnight, so decreased MN to 6AM basals from 0.725 to 0.675 Units/hr. She will meet with our CDE next Wednesday to upgrade to Medtronic 770G pump with sensor. Assessment & Plan (03/19/2022 12:28 PM CDT): A1c at goal. I did lower her basal from 330AM-6AM from 0.725 to 0.70 Units/hr to prevent AM hypoglycemia. Because of her frequent sensor adhesion issues, I do recommend that she change her infusion site every 2 days. Labs UTD. Recommend yearly eye exams. Assessment & Plan (12/17/2021 1:08 PM CDT): A1c at goal. Continue current pump settings. Labs today. Eye exams UTD. Assessment & Plan (09/19/2021 3:29 PM APPLICATION INFRASTRUCTURE ENGINEER): A1c at goal on current therapy. Labs UTD. Recommend yearly eye exams. Assessment & Plan (07/30/2021 3:27 PM APPLICATION INFRASTRUCTURE ENGINEER): A1C 6.4% CSII and CGM reviewed today, low basal to 0.725 at 1999-was 2100 To call for review in 1 week Housekeeping labs due September 2020 Current on eye exam Assessment & Plan (04/30/2021 12:48 PM CDT): Blood sugars at goal. No changes needed to pump settings. Refer to nutrition. Labs and eye exams UTD. Hypertension, essential 04/30/2021 Assessment & Plan (08/03/2024 1:30 PM APPLICATION INFRASTRUCTURE ENGINEER): BP elevated today. Check BP's at home using automated cuff and keep log. Goal < 130/80. Assessment & Plan (05/02/2024 7:40 PM CDT): At goal on current therapy. Assessment & Plan (01/26/2024 1:34 PM CDT): At goal on current therapy. Assessment & Plan (10/25/2023 7:09 PM CDT): At goal on current therapy. Assessment & Plan (07/20/2023 7:20 PM APPLICATION INFRASTRUCTURE ENGINEER): At goal on current therapy. Assessment & Plan (04/19/2023 4:11 PM CDT): At goal on current therapy. Assessment & Plan (12/24/2022 10:51 AM CDT): BP elevated today. Check BP's at home using automated cuff and keep log. Goal < 130/80. Assessment & Plan (09/14/2022 10:22 AM APPLICATION INFRASTRUCTURE ENGINEER): At goal on current therapy. Assessment & Plan (06/17/2022 11:03 AM APPLICATION INFRASTRUCTURE ENGINEER): At goal on current therapy. Assessment & Plan (03/19/2022 10:35 AM CDT): At goal based on home BP measurements. Assessment & Plan (12/17/2021 1:08 PM CDT): BP elevated today. Check BP's at home using automated cuff and keep log. Goal < 130/80. Send me log in 1 week. Assessment & Plan (09/19/2021 3:29 PM APPLICATION INFRASTRUCTURE ENGINEER): At goal on current therapy. Assessment & Plan (04/30/2021 12:48 PM CDT): Not at goal. Increase lisinopril-HCTZ to 20-25 mg daily. Other hyperlipidemia 04/30/2021 Assessment & Plan (08/03/2024 1:22 PM APPLICATION INFRASTRUCTURE ENGINEER): At goal on current therapy. Assessment & Plan (05/02/2024 7:40 PM CDT): Check lipids today. Continue atorvastatin. Assessment & Plan (01/26/2024 1:33 PM CDT): At goal on current therapy. Assessment & Plan (10/25/2023 7:09 PM CDT): At goal on current therapy. Assessment & Plan (07/20/2023 7:20 PM APPLICATION INFRASTRUCTURE ENGINEER): At goal on current therapy. Assessment & Plan (04/19/2023 4:11 PM CDT): LDL mildly elevated at last visit. Repeat LDL at time of LFT's later this week. Assessment & Plan (12/24/2022 10:51 AM CDT): LDL high at last visit. She is on atorvastatin. Repeat today to assess adequacy of therapy. Assessment & Plan (09/14/2022 10:23 AM APPLICATION INFRASTRUCTURE ENGINEER): LDL higher today. Cut back on butter. Stay on same statin dose. Assessment & Plan (06/17/2022 10:45 AM APPLICATION INFRASTRUCTURE ENGINEER): At goal on current therapy. Assessment & Plan (03/19/2022 12:27 PM CDT): At goal on current therapy. Assessment & Plan (12/17/2021 10:52 AM CDT): At goal on current therapy. Assessment & Plan (09/19/2021 3:29 PM APPLICATION INFRASTRUCTURE ENGINEER): At goal on current therapy. Assessment & Plan (04/30/2021 12:49 PM CDT): At goal on current therapy after switch to Lipitor. Encounters Date Type Department Care Team Description 11/07/2024 1:00 PM CDT Office Visit [facility] [address] [place] [phone] Fadia Valdez NP Type 1 diabetes mellitus without complication (HCC) (Primary Dx); Osteoporosis, unspecified osteoporosis type, unspecified pathological fracture presence; Other hyperlipidemia 10/19/2024 1:30 PM CDT Infusion [facility] [address] [place] [address] [address] [place] [address] Osteoporosis, unspecified osteoporosis type, unspecified pathological fracture presence (Primary Dx) 10/13/2024 Orders Only [facility] [address] [place] [phone] Katharina Villafana NP 10/03/2024 Orders Only [facility] [address] [place] [phone] Katharina Villafana NP Hypertension, essential (Primary Dx); Vitamin D deficiency from Last 3 Months Immunizations Immunization Administration Dates Next Due Influenza, Trivalent, High D ose, Split, Preservative Free, Intramuscular 05/17/2024 Surgical History Surgery Date Site/Laterality Comments REPLACEMENT TOTAL KNEE Medical History Medical History Date Comments T1DM (type 1 diabetes mellitus) (HCC) Hyperlipidemia Hypertension Family History Medical History Relation Name Comments Hyperlipidemia Father Hypertension Father Heart failure Mother Hyperlipidemia Mother Hypertension Mother Stroke Mother Relation Name Status Comments Father Mother Social History Tobacco Use Types Packs/Day Years Used Date Smoking Tobacco: Never Tobacco Cessation:Counseling Given: Not Answered PHQ-2 Answer Date Recorded PHQ-2 Total Score (If total score is 3 or more points, staff should administer the PHQ-9) 0 10/29/2020 Hunger Vital Sign Answer Date Recorded Within the past 12 months, y ou worried that your food would run out before you got the money to buy more. Never true 10/20/19 Within the past 12 months, t he food you bought just didn't last and you didn't have money to get more. Never true 10/19/2024 Personal Safety Answer Date Recorded Have you ever been in or are you currently in a harmful physical or emotional relationship or is someone making you feel afraid or unsafe? Denies 10/19/2024 Comments Unknown Sex and Gender Information Value Date Recorded Sex Assigned at Not on file Legal Sex Female 12:44 AM APPLICATION INFRASTRUCTURE ENGINEER Gender Identity Not on file Sexual Orientation Not on file Obstetrics History Last Filed Vital Signs Vital Sign Reading Time Taken Comments Blood Pressure 124/60 11/07/2024 12:58 PM CDT Pulse 89 11/07/2024 12:58 PM CDT Temperature 36.4 C (97.6 F) 10/19/2024 1:18 PM CDT Respiratory Rate 16 10/25/2023 1:16 PM CDT Oxygen Saturation 99% 11/07/2024 12:58 PM CDT Inhaled Oxygen Concentration - - Weight 65.8 kg (145 lb) 11/07/2024 12:58 PM CDT Height 154.9 cm (5' 1 ) 11/07/2024 12:58 PM CDT Body Mass Index 27.4 11/07/2024 12:58 PM CDT Plan of Treatment Health Maintenance Due Date Last Done Comments Breast Cancer Screening-Mammogram 1954 Colon Cancer Screening-Colonoscopy 1954 Foot Exam 1954 Hepatitis C Screening 1954 Osteoporosis Screening-Bone Density Scan 1954 Dilated Eye Exam 1964 DTaP/Tdap/Td Vaccine (1 - Tdap) 1965 Hepatitis B Screening 1972 Pneumococcal vaccine 65+ (1 of 2 - PCV) 1973 Zoster Vaccine (1 of 2) 2004 Depression Screening 10/29/2021 10/29/2020 Fall Risk Assessment 10/29/2021 10/29/2020 Well Visit 65+ 10/29/2021 10/29/2020 Albumin Creatinine Ratio, Urine 09/27/2024 09/27/2023, 12/24/2022, 12/17/2021 Lipid Panel 05/02/2025 05/02/2024, 021 09/2022, 06/17/2022, Additional history exists TSH Level 05/02/2025 05/02/2024, 12/01, 12/17/2021, Additional history exists Hemoglobin A1C 05/09/2025 11/07/2024, 01/0 09/2024, 05/02/2024, Additional history exists eGFR 10/13/2025 10/13/2024, 09/03, 12/24/2022, Additional history exists Influenza Vaccine Completed 05/17/2024, , 05/21/2019, Additional history exists Procedures Procedure Name Priority Date/Time Associated Diagnosis Comments POCT HEMOGLOBIN A1C Routine 11/07/2024 1 :08 PM CDT Type 1 diabetes mellitus without complication (HCC) COMPREHENSIVE METABOLIC PANEL Routine 10/13/2024 8:32 AM CDT Hypertension, essential VITAMIN D 25 HYDROXY Routine 10/13/2024 8:28 AM CDT Vitamin D deficiency LIPID PANEL Routine 05/02/2024 2:47 PM CDT Other hyperlipidemia THYROID FUNCTION CASCADE Routine 05/02/2024 2:47 PM CDT Type 1 diabetes mellitus without complication (HCC) ALBUMIN CREATININE RATIO, URINE Routine 09/27/2023 12:58 PM APPLICATION INFRASTRUCTURE ENGINEER Osteoporosis, unspecified osteoporosis type, unspecified pathological fracture presence from Last 3 Months or Most Recently Relevant to Health Maintenance Results * POCT hemoglobin A1c (11/07/2024 1:08 PM CDT) Hemoglobin A1C, POC 6.7 4.0 - 5.6 % Capillary blood 11/07/2024 1 :08 PM CDT Fadia Valdez NP POINT OF CARE TEST ORDERABLES Final Result * (ABNORMAL) Comprehensive metabolic panel (10/13/2024 8:32 AM CDT) Glucose 121(H) 65 - 99 mg/dL [facility] Comment: Fasting reference interval For someone without known diabetes, a glucose value between 100 and 125 mg/dL is consistent with prediabetes and should be confirmed with a follow-up test. BUN 20 7 - 25 mg/dL [facility] Creatinine 0.69 0.50 - 1.05 mg/dL [facility] eGFR 94 > OR = 60 mL/min/1.7 3m2 [facility] BUN/creat ratio SEE NOTE: 6 - 22 (calc) [facility] Comment: Not Reported: BUN and Creatinine are within reference range. Sodium 136 135 - 146 mmol/L [facility] Potassium, pl 4.7 3.5 - 5.3 mmol/L [facility] Chloride 102 98 - 110 mmol/L [facility] CO2 29 20 - 32 mmol/L [facility] Calcium 9.7 8.6 - 10.4 mg/dL [facility] Protein, sr 6.9 6.1 - 8.1 g/dL [facility] Albumin 4.2 3.6 - 5.1 g/dL [facility] GLOBULIN 2.7 1.9 - 3.7 g/dL (calc) [facility] Alb/glob ratio 1.6 1.0 - 2.5 (calc) [facility] Bilirubin, total 0.4 0.2 - 1.2 mg/dL [facility] Alk phos 45 37 - 153 U/L [facility] AST 27 10 - 35 U/L [facility] ALT (SGPT) 28 6 - 29 U/L [facility] Blood 10/13/2024 8:32 AM CDT 10/13/2024 8:32 AM CDT Narrative [facility] - 10/14/2024 1:48 AM CDT FASTING:YES FASTING: YES us Katharina Villafana EXTRACTION MACHINE OPERATOR LAB BLOOD ORDERABLES Fin al Result [facility] [address] [place] [address] * Vitamin D 25 hydroxy (10/13/2024 8:28 AM CDT) Vitamin D 25-OH 39 30 - 100 ng/mL [facility] Comment: Vitamin D Status 25-OH Vitamin D: Deficiency: <20 ng/mL Insufficiency: 20 - 29 ng/mL Optimal: > or = 30 ng/mL For 25-OH Vitamin D testing on patients on D2-supplementation and patients for whom quantitation of D2 and D3 fractions is required, the QuestAssureD(TM) 25-OH VIT D, (D2,D3), LC/MS/MS is recommended: order code 87015 (patients >2yrs). See Note 1 Note 1 For additional information, please refer to http://education.[employer]Lottay/faq/DNY942 (This link is being provided for informational/ educational purposes only.) Blood 10/13/2024 8:28 AM CDT 10/13/2024 8:28 AM CDT Narrative [facility] - 10/14/2024 2:02 AM CDT FASTING:YES FASTING: YES Katharina Villafana NP LAB BLOOD ORDERABLES Fin al Result [facility] [address] [place] [address] * Thyroid Function Curry (05/02/2024 2:47 PM CDT) TSH 1.11 0.30 - 4.20 mcIUnit/mL Blood 05/02/2024 2:47 PM CDT 05/02/2024 3:14 PM CDT Mundo Shi MD LAB BLOOD ORDERABLES Fi nal Result [facility] Department [place] [address] * Lipid panel (05/02/2024 2:47 PM CDT) Cholesterol 195 30 - 199 mg/dL Comment: Interpretive Data Ages < or = 19 years Acceptable: <170 mg/dL Borderline high: 170-199 mg/dL High: >or= 200 mg/dL Ages > or = 20 years Desirable: <200 mg/dL Borderline high: 200-239 mg/dL High: >or= 240 mg/dL Literature References: 1. Expert Panel on Integrated Guidelines for Cardiovascular Health and Risk Reduction in Children and Adolescents. Pediatrics 2011;128:S213 2. NCEP Expert Panel. Circulation 2004;110:227 Current Interpretive Data was last revised on 2018. Triglycerides 76 <=149 mg/dL [facility] Comment: Interpretive Data Ages < or = 9 years Acceptable: <75 mg/dL Borderline high: 75-99 mg/dL High: >or= 100 mg/dL Ages 10 to 20 years Acceptable: <90 mg/dL Borderline high: 90-129 mg/dL High: >or= 130 mg/dL Ages > or = 20 years Desirable: <150 mg/dL Borderline high: 150-199 mg/dL High: 200-499 mg/dL Very high: >or= 499 mg/dL Literature References: 1. Expert Panel on Integrated Guidelines for Cardiovascular Health and Risk Reduction in Children and Adolescents. Pediatrics 2011;128:S213 2. NCEP Expert Panel. Circulation 2004;110:227 Current Interpretive Data was last revised on 2018. HDL 93 >=40 mg/dL [facility] Comment: Interpretive Data Ages < or = 19 years Acceptable: >45 mg/dL Borderline low: 40-45 mg/dL Low: <40 mg/dL Ages > or = 20 years Desirable: >or= 60 mg/dL Low: <40 mg/dL Literature References: 1. Expert Panel on Integrated Guidelines for Cardiovascular Health and Risk Reduction in Children and Adolescents. Pediatrics 2011;128:S213 2. NCEP Expert Panel. Circulation 2004;110:227 Current Interpretive Data was last revised on 2018. LDL, calculated 88 <=129 mg/dL [facility] Comment: Interpretive Data Ages < or = 19 years Acceptable: <110 mg/dL Borderline high: 110-129 mg/dL High: >or= 130 mg/dL Ages > or = 20 years Optimal: <100 mg/dL Near optimal: 100-129 mg/dL Borderline high: 130-159 mg/dL High: >160 mg/dL Calculated using the Sam LDL-C estimating equation. This equation was implemented on 2024. Prior to this date LDL-C was estimated using the Friedewald equation. Literature References: 1. Expert Panel on Integrated Guidelines for Cardiovascular Health and Risk Reduction in Children and Adolescents. Pediatrics 2011;128:S213 2. NCEP Expert Panel. Circulation 2004;110:227 3. Sam Montoya et al. RONNI Cardiol. 2019November 30;5(5):540-548. doi: 10.1001/jamacardio.2020.0013 Current Interpretive Data was last revised on 2024. Non-HDL Cholesterol 102 mg/dL [facility] Comment: Interpretive Data Ages < or = 19 years Acceptable: <120 mg/dL Borderline high: 120-144 mg/dL High: >145 mg/dL Ages > or = 20 years When triglycerides are >200 mg/dL, Non-HDL cholesterol is a secondary target of therapy with treatment goals that are 30 mg/dL greater than the LDL cholesterol target. Literature References: 1. Expert Panel on Integrated Guidelines for Cardiovascular Health and Risk Reduction in Children and Adolescents. Pediatrics 2011;128:S213 2. NCEP Expert Panel. Circulation 2004;110:227 Current Interpretive Data was last revised on 2018. Chol/HDL ratio 2 [facility] Blood 05/02/2024 2:47 PM CDT 05/02/2024 3:14 PM CDT Mundo Shi MD LAB BLOOD ORDERABLES Fi nal Result [facility] Department [place] [address] * (ABNORMAL) Albumin Creatinine Ratio, Urine (09/27/2023 12:58 PM APPLICATION INFRASTRUCTURE ENGINEER) Pathologist [facility] Creatinine, ur 93 20 - 275 mg/dL [facility] Microalbumin, ur 3.4 See Note: mg/dL [facility] Comment: Reference Range: Reference Range Not established Microalbumin/creat ratio 37(H) <30 mcg/mg creat [facility] Comment: The ADA defines abnormalities in albumin excretion as follows: Albuminuria Category Result (mcg/mg creatinine) Normal to Mildly increased <30 Moderately increased 30-299 Severely increased > OR = 300 The ADA recommends that at least two of three specimens collected within a 3-6 month period be abnormal before considering a patient to be within a diagnostic category. Urine 09/27/2023 12:5 8 PM APPLICATION INFRASTRUCTURE ENGINEER 09/27/2023 1:00 PM APPLICATION INFRASTRUCTURE ENGINEER Narrative [facility] - 09/28/2023 1:05 PM APPLICATION INFRASTRUCTURE ENGINEER FASTING:NO FASTING: NO Mundo Shi MD LAB URINE ORDERABLES Fi nal Result [facility] [address] [address] [phone] from Last 3 Months or Most Recently Relevant to Health Maintenance Insurance MEDICARE [facility] MEDICARE COMMERCIAL GENERIC MEDICARE [employer] MEDICARE Care Teams Thread Trimmer Relationship Specialty Start Date End Date Amador Huber MD PCP - General Family Practice 04/19/23
--- OUTSIDE RECORDS SUMMARY | 2024-12-05 13:09 | XMS_ITS | Referral Summary ---
Author Organization [facility] [address] [facility] Address [address] [place] [address] Care Team Providers Care Harness Cutter Name Role Phone Amador Huber MD Primary Care Provider [phone] Encounters Date Type Department Care Team Description 11/07/2024 1:00 PM CDT Office Visit [facility] [address] [place] [phone] Fadia Valdez NP Type 1 diabetes mellitus without complication (HCC) (Primary Dx); Osteoporosis, unspecified osteoporosis type, unspecified pathological fracture presence; Other hyperlipidemia 10/19/2024 1:30 PM CDT Infusion [facility] [address] [place] [address] [address] [place] [id number] Osteoporosis, unspecified osteoporosis type, unspecified pathological fracture presence (Primary Dx) 10/13/2024 Orders Only [facility] [address] [place] [phone] Katharina Villafana NP 10/03/2024 Orders Only [facility] [address] [place] [phone] Katharina Villafana NP Hypertension, essential (Primary Dx); Vitamin D deficiency from Last 3 Months Allergies Active Allergy Reactions Criticality Noted Date [...] skin as needed (hypoglycemia) 0.2 mL 1 12/29 025 Discontinued(T herapy completed) ISONIAZID ORAL Take 100 mg by mouth 025 Discontinued(T herapy completed) Active Problems Problem Noted Date Diagnosed Date Osteoporosis 07/20/2023 Assessment & Plan (08/03/2024 1:29 PM MILK CONDENSER): Will plan for 2nd Reclast in late [...] today. Assessment & Plan (07/20/2023 7:21 PM MILK CONDENSER): Had long discussion about need to treat [...] monitored. Assessment & Plan (07/20/2023 7:21 PM MILK CONDENSER): INH and B6. Assessment & Plan (04/19/2023 4:11 PM CDT): On INH currently. Has repeat LFT's ordered. Assessment & Plan (12/24/2022 11:22 AM CDT): I recommended that she start treatment. Plantar fasciitis 09/14/2022 Assessment & Plan (12/24/2022 11:21 AM CDT): She will ask her sprayer hand to remove the embedded suture. Assessment & Plan (09/14/2022 10:41 AM MILK CONDENSER): Doing well after surgery. Vitamin D deficiency 12/17/2021 Tongue swelling 09/19/2021 Assessment & Plan (09/19/2021 3:30 PM MILK CONDENSER): Now resolved. Benign exam. Likely mold allergy. Type 1 diabetes mellitus without complication Assessment & Plan (08/03/2024 1:30 PM MILK CONDENSER): A1c at goal on current therapy. Continue current eye exams. Assessment & Plan (05/02/2024 2:22 PM CDT): A1c at goal on current therapy. Eye exams current. No neuropathy symptoms. Assessment & Plan (01/26/2024 1:33 PM CDT): A1c at goal on current therapy. Assessment & Plan (10/25/2023 7:10 PM CDT): A1c at goal on current therapy. Assessment & Plan (07/20/2023 7:21 PM MILK CONDENSER): Glucoses at goal on pump/CGM report. Continue [...] pump. Assessment & Plan (09/14/2022 10:23 AM MILK CONDENSER): A1c a bit higher today, but TIR very high on her CGM/pump report since resumption of auto mode. Stay on same pump settings. Eye exam tomorrow. Labs due next visit. Assessment & Plan (06/17/2022 10:46 AM MILK CONDENSER): A1c at goal. Having lows overnight, so [...] UTD. Assessment & Plan (09/19/2021 3:29 PM MILK CONDENSER): A1c at goal on current therapy. Labs UTD. Recommend yearly eye exams. Assessment & Plan (07/30/2021 3:27 PM MILK CONDENSER): A1C 6.4% CSII and CGM reviewed today, [...] 04/30/2021 Assessment & Plan (08/03/2024 1:30 PM MILK CONDENSER): BP elevated today. Check BP's at home using automated cuff and keep log. Goal < 130/80. Assessment & Plan (05/02/2024 7:40 PM CDT): At goal on current therapy. Assessment & Plan (01/26/2024 1:34 PM CDT): At goal on current therapy. Assessment & Plan (10/25/2023 7:09 PM CDT): At goal on current therapy. Assessment & Plan (07/20/2023 7:20 PM MILK CONDENSER): At goal on current therapy. Assessment & Plan (04/19/2023 4:11 PM CDT): At goal on current therapy. Assessment & Plan (12/24/2022 10:51 AM CDT): BP elevated today. Check BP's at home using automated cuff and keep log. Goal < 130/80. Assessment & Plan (09/14/2022 10:22 AM MILK CONDENSER): At goal on current therapy. Assessment & Plan (06/17/2022 11:03 AM MILK CONDENSER): At goal on current therapy. Assessment & Plan (03/19/2022 10:35 AM CDT): At goal based on home BP measurements. Assessment & Plan (12/17/2021 1:08 PM CDT): BP elevated today. Check BP's at home using automated cuff and keep log. Goal < 130/80. Send me log in 1 week. Assessment & Plan (09/19/2021 3:29 PM MILK CONDENSER): At goal on current therapy. Assessment & Plan (04/30/2021 12:48 PM CDT): Not at goal. Increase lisinopril-HCTZ to 20-25 mg daily. Other hyperlipidemia 04/30/2021 Assessment & Plan (08/03/2024 1:22 PM MILK CONDENSER): At goal on current therapy. Assessment & Plan (05/02/2024 7:40 PM CDT): Check lipids today. Continue atorvastatin. Assessment & Plan (01/26/2024 1:33 PM CDT): At goal on current therapy. Assessment & Plan (10/25/2023 7:09 PM CDT): At goal on current therapy. Assessment & Plan (07/20/2023 7:20 PM MILK CONDENSER): At goal on current therapy. Assessment & Plan (04/19/2023 4:11 PM CDT): LDL mildly elevated at last visit. Repeat LDL at time of LFT's later this week. Assessment & Plan (12/24/2022 10:51 AM CDT): LDL high at last visit. She is on atorvastatin. Repeat today to assess adequacy of therapy. Assessment & Plan (09/14/2022 10:23 AM MILK CONDENSER): LDL higher today. Cut back on butter. Stay on same statin dose. Assessment & Plan (06/17/2022 10:45 AM MILK CONDENSER): At goal on current therapy. Assessment & Plan (03/19/2022 12:27 PM CDT): At goal on current therapy. Assessment & Plan (12/17/2021 10:52 AM CDT): At goal on current therapy. Assessment & Plan (09/19/2021 3:29 PM MILK CONDENSER): At goal on current therapy. Assessment & Plan (04/30/2021 12:49 PM CDT): At goal on current therapy after switch to Lipitor. Immunizations Immunization Administration Dates Next Due Influenza, Trivalent, High D ose, Split, Preservative Free, Intramuscular 05/17/2024 Social History Tobacco Use Types Packs/Day Years [...] money to buy more. Never true 10/20/19 25 Within the past 12 months, t he [...] on file Legal Sex Female 12:44 AM MILK CONDENSER Gender Identity Not on file Sexual Orientation Not on file Last Filed Vital Signs Vital Sign Reading [...] 11/07/2024 12:58 PM CDT Plan of Treatment Not on file Procedures Procedure Name Priority Date/Time Associated Diagnosis [...] CREATININE RATIO, URINE Routine 09/27/2023 12:58 PM MILK CONDENSER Osteoporosis, unspecified osteoporosis type, unspecified pathological fracture presence from Last 3 Months or Most Recently Relevant to Health Maintenance Results * POCT hemoglobin A1c (11/07/2024 1:08 PM CDT) Pathologist [facility] Hemoglobin A1C, POC 6.7 4.0 - 5.6 % Capillary blood 11/07/2024 1 :08 PM CDT Fadia Valdez NP POINT OF CARE TEST ORDERABLES Final Result * (ABNORMAL) Comprehensive metabolic panel (10/13/2024 8:32 AM CDT) Pathologist [facility] Glucose 121(H) 65 - 99 mg/dL [facility] [...] 10/14/2024 1:48 AM CDT FASTING:YES FASTING: YES Katharina Villafana TOOL STRAIGHTENER LAB BLOOD ORDERABLES Fin al Result [facility] [address] [place] [address] * Vitamin D 25 hydroxy (10/13/2024 8:28 [...] D, (D2,D3), LC/MS/MS is recommended: order code 61139 (patients >2yrs). See Note 1 Note 1 For additional information, please refer to http://education.LeaderNation/faq/MCK316 (This link is being provided for informational/ educational purposes only.) Blood 10/13/2024 8:28 AM CDT 10/13/2024 8:28 AM CDT Narrative [facility] - 10/14/2024 2:02 AM CDT FASTING:YES FASTING: YES us Katharina Villafana NP LAB BLOOD ORDERABLES Fin al Result [facility] [address] [place] [address] * Thyroid Function [place] (05/02/2024 2:47 PM CDT) TSH 1.11 0.30 - 4.20 mcIUnit/mL Blood 05/02/2024 2:47 PM CDT 05/02/2024 3:14 PM CDT us Mundo Shi MD LAB BLOOD ORDERABLES Fi nal Result [facility] Department [place] [address] * Lipid panel (05/02/2024 2:47 PM CDT) [...] on 2018. Triglycerides 76 <=149 mg/dL [facility] Comment: Interpretive Data Ages < or = [...] revised on 2018. HDL 93 >=40 mg/dL [facility] Comment: Interpretive Data Ages < or = [...] on 2018. LDL, calculated 88 <=129 mg/dL [facility] Comment: Interpretive Data Ages < or = [...] NCEP Expert Panel. Circulation 2004;110:227 3. Sam Couch. RONNI Cardiol. 2020 November 30;5(5):540-548. doi: 10.1001/jamacardio.2020.0013 Current Interpretive Data was last revised on 2024. Non-HDL Cholesterol 102 mg/dL [facility] Comment: Interpretive Data Ages < or = [...] last revised on 2018. Chol/HDL ratio 2 [facility] Blood 05/02/2024 2:47 PM CDT 05/02/2024 3:14 PM CDT Mundo Shi MD LAB BLOOD ORDERABLES Fi nal Result Performing Organization Address City/[facility] Co de Phone Number [facility] Department [place] [address] * (ABNORMAL) Albumin Creatinine Ratio, Urine (09/27/2023 12:58 PM MILK CONDENSER) Pathologist [facility] Creatinine, ur 93 20 - 275 [...] diagnostic category. Urine 09/27/2023 12:5 8 PM MILK CONDENSER 09/27/2023 1:00 PM MILK CONDENSER Narrative [facility] - 09/28/2023 1:05 PM MILK CONDENSER FASTING:NO FASTING: NO Mundo Shi MD LAB URINE ORDERABLES Fi nal Result [facility] [address] [place] [phone] from Last 3 Months or Most Recently Relevant to Health Maintenance Insurance MEDICARE [facility] MEDICARE COMMERCIAL GENERIC MEDICARE [place] MEDICARE Care Teams Harness Cutter Relationship Specialty Start Date End Date Amador Huber MD PCP - General Family Practice 04/19/23
--- OUTSIDE RECORDS SUMMARY | 2024-12-05 13:09 | XMS_ITS ---
Author Organization [facility] [employer] [place] ([address]) Address [address] [place] [address] Care Team Providers Care Belt Conveyor Drier Name Role Phone Amador Huber Primary Care Provider Unavailabl Enedina Payne Unavailable [phone] REASON FOR VISIT SCIT - Traditional Schedule Allergy immunotherapy Medications Medication SIG (Take, Route, Frequency, Duration) Notes Start Date End Date Status EPINEPHrine 0.3 MG/0.3ML as directed Injection as needed for 30 days Active SIT (TRADITIONAL) variable per schedule SC per schedule for to be determined Active NOVOLOG 100 UNITS/ML SUBCUTANEOUS SOLUTION INSULIN PUMP *Please review for potential replacement for e-prescription and drug interaction check* Not-Taking OPCON-A OPHTHALMIC SOLUTION 1-2 GTTS IN AFFECTED EYE(S) PRN, MAX: 4X/DAY *Please review for potential replacement for e-prescription and drug interaction check* Not-Taking Ipratropium [place] 0.03 % 2 sprays in each nostril Nasally Twice a day for 30 days Active EPINEPHRINE AUTO-INJECTOR 0.3 mg as directed intramuscularly once for 30 day(s) Not-Taking Vitamin D3 125 MCG (5000 UT) as directed orally once a day Not-Taking Xyzal Allergy 24HR 5 MG 1 tab(s) orally once a day (in the evening) for 30 day(s) Not-Taking NOVOLOG 100 UNITS/ML SUBCUTANEOUS SOLUTION INSULIN PUMP *Please review for potential replacement for e-prescription and drug interaction check* Not-Taking OPCON-A OPHTHALMIC SOLUTION 1-2 GTTS IN AFFECTED EYE(S) PRN, MAX: 4X/DAY *Please review for potential replacement for e-prescription and drug interaction check* Not-Taking Ipratropium [place] 21 MCG/INH 2 SPRAY(S) INTRANASALLY 3 TIMES A DAY for 90 DAYS *Please review and pick correct strength-formul ation from [employer] options. If intended option is not shown, discontinue and re-order from Quick Search* Not-Taking IPRATROPIUM BROMIDE NASAL 21 mcg/inh 2 spray(s) intranasally 3 times a day for 30 day(s) Not-Taking hydroCHLOROthiazide 12.5 MG 1 tab(s) orally once a day for 30 day(s) Not-Taking Lisinopril-hydroCHLOROth iazide 10-12.5 MG 1 tab(s) orally once a day Active amLODIPine Besylate 10 MG 1 tab(s) orally once a day Active Magnesium Oxide 250 MG 1 cap(s) orally once a day Active Multivitamin - 1 tab(s) orally once a day Active Atorvastatin Calcium 40 MG 1 tab(s) orally once a day Active Ibuprofen 200 MG 1 tab(s) orally every 6 hours Active Calcium Carbonate Antacid 1000 MG 2 tab(s) chewed Qday Active Ipratropium [place] 21 MCG/INH 2 SPRAY(S) INTRANASALLY 3 TIMES A DAY for 30 DAY(S) *Please review and pick correct strength-formul ation from Alt[employer]re options. If intended option is not shown, discontinue and re-order from Quick Search* Active Encounters Encounter Location Date Provider Diagnosis [facility] [address] [place] [phone] 11/07/2024 Enedina Reed Allergic rhinitis du e to pollen J30.1 ; Other allergic rhinitis J30.89 and Other chronic allergic conjunctivitis H10.45 Assessments Encounter Date Diagnosis (ICD Code) Assessment Notes Treatment Notes Treatment Clinical Notes Section Notes 11/07/2024 Allergic rhinitis due to pollen (ICD-10 - J30.1) 11/07/2024 Other allergic rhinitis (ICD-10 - J30.89) 11/07/2024 Other chronic allergic conjunctivitis (ICD-10 - H10.45) Plan Of Treatment Medication Medication Name Sig Start Date Stop Date Notes SIT (TRADITIONAL) variable per schedule SC per schedule for to be determined Next Appt Details Follow Up: 1 Week, Reason: Provider Name:Enedina JanEmerald wu, 12/07/2024 10:30:00 AM, [address] [facility], [address], [place], [address], Progress Notes * Pauline YOUNGDOB: [birth year] (68 yo F)Acc No.[id number]:11/07/2024 SCIT-Aeroallergen Patient: Pauline PITTMAN Provider: Lamar Reed MD :1955 A ge:68 Y S ex:Female Date:11/07/2024 Address[address] [id number] Pcp:Amador Huber Subjective: * Chief Complaints: * S CIT - Traditional Schedule Allergy immunotherapy * HPI: * Introduction: The patient is here for scheduled immunotherapy. Please see the attached specialty form regarding the specifics of the administration of these vaccines. As per our protocol, they must undergo a screening health questionnaire (medication changes, reaction(s) to last immunotherapy dose(s), current health status, ACT (if appropriate), self-injectable epinephrine on patient(?) and peak flow (if appropriate)). Also, the patient must wait in our office for 30 minutes after receiving the vaccine(s). Furthermore, every patient must have an epinephrine pen (self-injectable) with them at the time of administration--and carry if for the following 1.5 hours after they leave our office. The patient must also have taken their antihistamine the day of the injection, preferably 2 hours prior. The consent form for SCIT (subcutaneous immunotherapy) is on file. * Medical History: * Surgical History: * Hospitalization/Major Diagno stic Procedure: * Medications: T akingSIT (TRADITIONAL) variable see record per schedule SC per schedule Ipratropium [place] 21 MCG/INH SPRAY 2 SPRAY(S) INTRANASALLY 3 TIMES A DAY , Notes to Pharmacist: *Please review and pick correct strength-formulation from Medispan options. If intended option is not shown, discontinue and re-order from Quick Search*Magnesium Oxide 250 MG Tablet 1 cap(s) orally once a day Ibuprofen 200 MG Tablet 1 tab(s) orally every 6 hours Calcium Carbonate Antacid 1000 MG Tablet Chewable 2 tab(s) chewed Qday Multivitamin - Tablet 1 tab(s) orally once a day Atorvastatin Calcium 40 MG Tablet 1 tab(s) orally once a day Lisinopril-hydroCHLOROthiazide 10-12.5 MG Tablet 1 tab(s) orally once a day amLODIPine Besylate 10 MG Tablet 1 tab(s) orally once a day Ipratropium [place] 0.03 % Solution 2 sprays in each nostril Nasally Twice a day EPINEPHrine 0.3 MG/0.3ML Solution Auto-injector as directed Injection as needed Taking SIT (TRADITIONAL) variable see record per schedule SC per schedule Taking Ipratropium [place] 21 MCG/INH SPRAY 2 SPRAY(S) INTRANASALLY 3 TIMES A DAY , Notes to Pharmacist: *Please review and pick correct strength-formulation from Altierre options. If intended option is not shown, discontinue and re-order from Quick Search*Taking Magnesium Oxide 250 MG Tablet 1 cap(s) orally once a day Taking Ibuprofen 200 MG Tablet 1 tab(s) orally every 6 hours Taking Calcium Carbonate Antacid 1000 MG Tablet Chewable 2 tab(s) chewed Qday Taking Multivitamin - Tablet 1 tab(s) orally once a day Taking Atorvastatin Calcium 40 MG Tablet 1 tab(s) orally once a day Taking Lisinopril-hydroCHLOROthiazide 10-12.5 MG Tablet 1 tab(s) orally once a day Taking amLODIPine Besylate 10 MG Tablet 1 tab(s) orally once a day Taking Ipratropium [place] 0.03 % Solution 2 sprays in each nostril Nasally Twice a day Taking EPINEPHrine 0.3 MG/0.3ML Solution Auto-injector as directed Injection as needed Not-Taking/PRNhydroCHLOROthiazide 12.5 MG Tablet 1 tab(s) orally once a day Ipratropium [place] 21 MCG/INH SPRAY 2 SPRAY(S) INTRANASALLY 3 TIMES A DAY , Notes to Pharmacist: *Please review and pick correct strength-formulation from Altierre options. If intended option is not shown, discontinue and re-order from Quick Search*IPRATROPIUM BROMIDE NASAL 21 mcg/inh spray 2 spray(s) intranasally 3 times a day EPINEPHRINE AUTO-INJECTOR 0.3 mg kit as directed intramuscularly once Vitamin D3 125 MCG (5000 UT) Capsule as directed orally once a day NOVOLOG 100 UNITS/ML SUBCUTANEOUS SOLUTION INSULIN PUMP , Notes to Pharmacist: *Please review for potential replacement for e-prescription and drug interaction check*OPCON-A OPHTHALMIC SOLUTION 1-2 GTTS IN AFFECTED EYE(S) PRN, MAX: 4X/DAY , Notes to Pharmacist: *Please review for potential replacement for e-prescription and drug interaction check*Xyzal Allergy 24HR 5 MG Tablet 1 tab(s) orally once a day (in the evening) NOVOLOG 100 UNITS/ML SUBCUTANEOUS SOLUTION INSULIN PUMP , Notes to Pharmacist: *Please review for potential replacement for e-prescription and drug interaction check*OPCON-A OPHTHALMIC SOLUTION 1-2 GTTS IN AFFECTED EYE(S) PRN, MAX: 4X/DAY , Notes to Pharmacist: *Please review for potential replacement for e-prescription and drug interaction check*Not-Taking/PRN hydroCHLOROthiazide 12.5 MG Tablet 1 tab(s) orally once a day Not-Taking/PRN Ipratropium [place] 21 MCG/INH SPRAY 2 SPRAY(S) INTRANASALLY 3 TIMES A DAY , Notes to Pharmacist: *Please review and pick correct strength-formulation from Alt[employer]re options. If intended option is not shown, discontinue and re-order from Quick Search*Not-Taking/PRN IPRATROPIUM BROMIDE NASAL 21 mcg/inh spray 2 spray(s) intranasally 3 times a day Not-Taking/PRN EPINEPHRINE AUTO-INJECTOR 0.3 mg kit as directed intramuscularly once Not-Taking/PRN Vitamin D3 125 MCG (5000 UT) Capsule as directed orally once a day Not-Taking/PRN NOVOLOG 100 UNITS/ML SUBCUTANEOUS SOLUTION INSULIN PUMP , Notes to Pharmacist: *Please review for potential replacement for e-prescription and drug interaction check*Not- Taking/PRN OPCON-A OPHTHALMIC SOLUTION 1-2 GTTS IN AFFECTED EYE(S) PRN, MAX: 4X/DAY , Notes to Pharmacist: *Please review for potential replacement for e-prescription and drug interaction check*Not-Taking/PRN Xyzal Allergy 24HR 5 MG Tablet 1 tab(s) orally once a day (in the evening) Not-Taking/PRN NOVOLOG 100 UNITS/ML SUBCUTANEOUS SOLUTION INSULIN PUMP , Notes to Pharmacist: *Please review for potential replacement for e-prescription and drug interaction check*Not-Taking/PRN OPCON-A OPHTHALMIC SOLUTION 1-2 GTTS IN AFFECTED EYE(S) PRN, MAX: 4X/DAY , Notes to Pharmacist: *Please review for potential replacement for e-prescription and drug interaction check* Objective: * Vitals: Assessment: * Assessment: 1. A llergic rhinitis due to pollen - J30.1 (Primary) 2 . O ther allergic rhinitis - J30.89 3 . O ther chronic allergic conjunctivitis - H10.45 ? Plan: * Treatment: * Procedure Codes: 9 5117 IMMUNOTHERAPY INJECTIONS * Preventive Medicine: Counseling: E xercise A void heavy lifting on days of allergy immunotherapy. M edication instruction: I njectable epinephrine education and instruction w/ discussion of signs and symptoms of anaphylaxis and reasons to seek urgent or emergent care, Watch for side effects of prescribed medications. E ducation: A ble to return demonstration of self-injectable epinephrine. * Follow Up: 1 Week * Billing Information: * Visit Code: * Procedure Codes: 74093 IMMUNOTHERAPY INJECTIONS. * Sign off status: Completed true * Provider: Lamar Rede MD Date: 0 11/07/2024 Generated for Bhavani monsivais/Clarita/Amysmitting on: 0 12/05/2024 01:09 PM CDT History and Physical Notes * HPI (History of Present Illness) Category Sub-Category Detail Notes Category Not es *Introduction The patient is here for scheduled immunotherapy. Please see the attached specialty form regarding the specifics of the administration of these vaccines. As per our protocol, they must undergo a screening health questionnaire (medication changes, reaction(s) to last immunotherapy dose(s), current health status, ACT (if appropriate), self-injectable epinephrine on patient(?) and peak flow (if appropriate)). Also, the patient must wait in our office for 30 minutes after receiving the vaccine(s). Furthermore, every patient must have an epinephrine pen (self-injectable) with them at the time of administration--and carry if for the following 1.5 hours after they leave our office. The patient must also have taken their antihistamine the day of the injection, preferably 2 hours prior. The consent form for SCIT (subcutaneous immunotherapy) is on file.
--- OUTSIDE RECORDS SUMMARY | 2024-12-05 13:09 | XMS_ITS ---
Author Organization [facility] [employer] [place] ([address]) Address [address] [place] [address] Care Team Providers Care Him Manager Name Role Phone Mayo Amador Primary Care Provider UnavailEnedina Quinonez Unavailable [phone] Allergies No Known Allergies REASON FOR VISIT ARC follow-up - improvement with immunotherapy, Urgent visit for dermatitis Medications Medication SIG (Take, Route, Frequency, Duration) Notes Start Date End Date Status OPCON-A OPHTHALMIC SOLUTION 1-2 GTTS IN AFFECTED EYE(S) PRN, MAX: 4X/DAY *Please review for potential replacement for e-prescription and drug interaction check* Not-Taking NOVOLOG 100 UNITS/ML SUBCUTANEOUS SOLUTION INSULIN PUMP *Please review for potential replacement for e-prescription and drug interaction check* Not-Taking NOVOLOG 100 UNITS/ML SUBCUTANEOUS SOLUTION INSULIN PUMP *Please review for potential replacement for e-prescription and drug interaction check* Not-Taking Xyzal Allergy 24HR 5 MG 1 tab(s) orally once a day (in the evening) for 30 day(s) Not-Taking OPCON-A OPHTHALMIC SOLUTION 1-2 GTTS IN AFFECTED EYE(S) PRN, MAX: 4X/DAY *Please review for potential replacement for e-prescription and drug interaction check* Not-Taking hydroCHLOROthiazide 12.5 MG 1 tab(s) orally once a day for 30 day(s) Not-Taking IPRATROPIUM BROMIDE NASAL 21 mcg/inh 2 spray(s) intranasally 3 times a day for 30 day(s) Not-Taking Ipratropium Clayton 21 MCG/INH 2 SPRAY(S) INTRANASALLY 3 TIMES A DAY for 90 DAYS *Please review and pick correct strength-formul ation from [employer] options. If intended option is not shown, discontinue and re-order from Quick Search* Not-Taking Vitamin D3 125 MCG (5000 UT) as directed orally once a day Not-Taking EPINEPHRINE AUTO-INJECTOR 0.3 mg as directed intramuscularly once for 30 day(s) Not-Taking amLODIPine Besylate 10 MG 1 tab(s) orally once a day Active Calcium Carbonate Antacid 1000 MG 2 tab(s) chewed Qday Active Atorvastatin Calcium 40 MG 1 tab(s) orally once a day Active Multivitamin - 1 tab(s) orally once a day Active Lisinopril-hydroCHLOROth iazide 10-12.5 MG 1 tab(s) orally once a day Active SIT (TRADITIONAL) variable per schedule SC per schedule for to be determined Active Magnesium Oxide 250 MG 1 cap(s) orally once a day Active Ipratropium Clayton 21 MCG/INH 2 SPRAY(S) INTRANASALLY 3 TIMES A DAY for 30 DAY(S) *Please review and pick correct strength-formul ation from [employer] options. If intended option is not shown, discontinue and re-order from [facility] Search* Active Ibuprofen 200 MG 1 tab(s) orally every 6 hours Active EPINEPHrine 0.3 MG/0.3ML as directed Injection as needed for 30 days Active Ipratropium Clayton 0.03 % 2 sprays in each nostril Nasally Twice a day for 30 days Active Social History Tobacco Use: Social History Observation Description Date Details (start date - stop date) Never Smoker NA - NA Tobacco Control (Standard) Question Answer Notes Tobacco use: Nonsmoker Encounters Encounter Location Date Provider Diagnosis [facility] [address] [facility] [address] [place] [id number] 09/12/2024 Enedina Reed Allergic rhinitis du e to pollen J30.1 ; Dermatitis, unspecified L30.9 ; Allergic contact dermatitis due to other agents L23.89 ; Allergy to other foods Z91.018 ; Allergic rhinitis due to animal (cat) (dog) hair and dander J30.81 ; Other allergic rhinitis J30.89 and Other chronic allergic conjunctivitis H10.45 Assessments Encounter Date Diagnosis (ICD Code) Assessment Notes Treatment Notes Treatment Clinical Notes Section Notes 09/12/2024 Allergic rhinitis due to pollen (ICD-10 - J30.1) Pauline clearly suffers from atopic disease based upon our skin testing and clinical history. Accordingly, we have introduced a new, aggressive medication regimen, discussed nasal washes and allergy-specific avoidance measures. She is tolerating SCIT without large local or systemic symptoms. She was instructed to carry her epinephrine autoinjector for 2 hours after leaving the office.. 09/12/2024 Dermatitis, unspecified (ICD-10 - L30.9) Unclear cause for small area of redness which started earlier this am. Possible bug bite or may have scratched herself while sleeping. No drainage present. No need for antibiotics at this time. If no improvement or area becomes larger in size recommend evaluation by PCP. 09/12/2024 Allergic contact dermatitis due to other agents (ICD-10 - L23.89) prior rash appears secondary to compression stocking or may be due to sweating while wearing the compression stockings. Itching has resolved with changing soaps and household products. Consider patch testing in the future if needed. 09/12/2024 Allergy to other foods (ICD-10 - Z91.018) May have sensitivity to sulfites which is causing rhinitis with processed food. Pauline was instructed to continue keeping a diary of restaurants and food eaten when symptoms occur. She does not appear to have an immediate IgE mediated reaction to food 09/12/2024 Allergic rhinitis due to animal (cat) (dog) hair and dander (ICD-10 - J30.81) 09/12/2024 Other allergic rhinitis (ICD-10 - J30.89) 09/12/2024 Other chronic allergic conjunctivitis (ICD-10 - H10.45) Given ocular signs and symptoms I encouraged allergy avoidance measures and meds as above. If symptoms persist, consider adding additional medications including intraocular antihistamine/ma st cell stabilizer, PRN 09/12/2024 Other Plan Of Treatment Medication Medication Name Sig Start Date Stop Date Notes EPINEPHrine 0.3 MG/0.3ML as directed Inj ection as needed for 30 days Ipratropium Clayton 0.03 % 2 sprays in e ach nostril Nasally Twice a day for 30 days Treatment Notes Assessment Notes Allergic rhinitis due to pollen Pauline cl early suffers from atopic disease based upon our skin testing and clinical history. Accordingly, we have introduced a new, aggressive medication regimen, discussed nasal washes and allergy-specific avoidance measures. She is tolerating SCIT without large local or systemic symptoms. She was instructed to carry her epinephrine autoinjector for 2 hours after leaving the office.. Dermatitis, unspecified Unclear cause fo r small area of redness which started earlier this am. Possible bug bite or may have scratched herself while sleeping. No drainage present. No need for antibiotics at this time. If no improvement or area becomes larger in size recommend evaluation by PCP. Allergic contact dermatitis due to other agents prior rash appears secondary to compression stocking or may be due to sweating while wearing the compression stockings. Itching has resolved with changing soaps and household products. Consider patch testing in the future if needed. Allergy to other foods May have sensitiv ity to sulfites which is causing rhinitis with processed food. Pauline was instructed to continue keeping a diary of restaurants and food eaten when symptoms occur. She does not appear to have an immediate IgE mediated reaction to food Other chronic allergic conjunctivitis Gi todd ocular signs and symptoms I encouraged allergy avoidance measures and meds as above. If symptoms persist, consider adding additional medications including intraocular antihistamine/mast cell stabilizer, PRN Next Appt Details Follow Up: 6 Months, Reason: Evaluation and Management Provider Name:Enedina wu, 12/07/2024 10:30:00 AM, [address] [facility], [address] [place] [address], [id number], Progress Notes * Pauline YOUNGDOB: [birth year] (68 yo F)Acc No.[id number]:09/12/2024 Progress Notes Patient: Pauline PITTMAN Provider: Lamar Reed MD :1955 A ge:68 Y S ex:Female Date:09/12/2024 Address:[facility] [id number] Pcp:Amador Huber Subjective: * Chief Complaints: * A RC follow-up - improvement with immunotherapyUrgent visit for dermatitis * HPI: * Introduction: I had the pleasure of seeing Albert Young, a 68 year old with type 1 diabetes, ARC on SCIT presenting for urgent evaluation of dermatitis. She is alone for today's visit. She was last evaluated 08-16-2024. She woke up in am with redness below her left eye and painful when she pushes on the area. No fever or recent illnesses. No other rash or symptoms. She reports diabetes is under good control. No changes in vision. Improvement in congestion and rhinorrhea with immunotherapy. She continues Xyzal and prn Ipratropium. She is tolerating immunotherapy well denies any large local or systemic symptoms with immunotherapy, Changes in barometric pressure cause facial pressure and congestion. No decrease in sense of smell. Spending time outside causes eye itching and watering. N o interval sinusitis. She uses a wood burning stove in the winter. Pauline has a history of food intolerances. She reports frequent congestion, rhinorrhea and cough which occur when eating out at restaurants but also occasionally at home. Appears related to preservatives. Above symptoms last about 30 minutes. Above symptoms always occur while eating various food at [employer]. She has similar reaction with Macaroni & Cheese and Salad from a Pizza restaurant. She tolerates fresh lettuce, but bagged lettuce causes rhinitis symptoms. She has type 1 diabetes which is under good control per her report and follows at [facility]. Today, she reports no fevers, chills, night sweats or other constitutional symptoms. * ROS: A LLERGY: Positive p er the HPI and history, otherwise unremarkable.? S PECIAL SENSES: Positve for n one. C ONSTITUTIONAL: Positive for n one. E NT: Positive p er the HPI and history, otherwise unremarkable.? R ESPIRATORY: Positive p er the HPI and history, otherwise unremakable.? O PHTHALMOLOGY: Positive for p er the HPI and history, otherwise unremarkable. E NDOCRINOLOGY: Positive for n one. C ARDIOLOGY: Positive for n one. G ASTROENTEROLOGY: Positive for n one. U ROLOGY: Positive for n one. D ERMATOLOGY: Positive for r harini. N EUROLOGY: Positive for n one. H EMATOLOGY/LYMPH: Positive for n one. M USCULOSKELETAL: Positive for n one. P SYCHOLOGY: Positive for n one. A ll other review of systems per the HPI and history, otherwise unremarkable. * Medical History: * Surgical History: A ppendectomy 5C-Section 06/24/1974C-Section 04/11/1980Hysterectomy 10/30/1992Trigger Finger Release 1Cholecystectomy 02/09/2020knee replacement 08/2023 * Hospitalization/Major Diagno stic Procedure: C ovid * Family History: F ather: , Yes, diagnosed with Emphysema, Hypertension, Heart Disease. M other: , Yes. S iblings: Yes, diagnosed with Allergic rhinitis due to allergen. C hildren: Yes. There is no other family history of cancer, CF, diabetes, emphysema or heart disease. * Social History: M arital Status What is your marital status? m arried A lcohol Screening Do you ever drink alcoholic beverages? Y es Number of drinks per occasion: 1 Frequency? W elizabeth S moking Have you ever smoked tobacco: n ever smoked Additional Findings: Tobacco Non-User I ntolerant non-smoker Are you a : n ever smoker R ecreational drug use Have you ever used recreational drugs? N o D etails on consumption of certain products? Do you regularly consume products with aspartame; Equal or NutraSweet? N o Do you regularly consume products with artificial coloring??No Have you ever noticed worsening of your rash with these food items? N o E xercise What kind(s) of exercise do you perform regularly? w alking,age-appropriate participation in physical activites How often do you perform this exercise? d aily A re any of the following personal care products containing fragrance, dye or preservatives used regularly? Shampoo: Y es Conditioner: N o Soap: Y es Laundry Detergent: Y es Fabric Softener: N o Deodorant: Y es Perfume, cologne, after shave: N o Air freshners or other scented products: N o Hair coloring dyes or rinses: N o Other: N o O ccupation Are you currenly employed? N o Have you had any job with high exposure to fumes, chemicals, dust or other noxious substances? N o Are you currently a student? N o E nvironmental History Living environment: p rivate home Where is the home located? r [place] Age of home: 6 0 How long have you lived there? 5 years or more How many people live in the home? 2 H ome description Basement: Y es Any water damage in basement? N o Smokers in the home? N o Smokers outside the home? N o Air Conditioning? Y es Central Air? Y es Forced air heating? Y es Gas or electric? g as Fireplace? Y es Used how often? o ther,winter months only Wood burning stove? Y es Used how often? o ther Do you vacuum the home? Y es Air purification systems? N o Pillow and mattress dust-proof encasings? N o Do you use a humidifier? N o Do you own any pets? Y es What kind(s)? (click all that apply) c ats How many cats? 1 Where do your pets sleep? g arage Fabric softeners used? N o Plants in the home? Y es How many? 1 0 Where are they kept? k itchen Is there carpeting in your bedroom? N o Do you have xbfl-dj-vaus carpeting? N o What is the age of your mattress (years)? 2 What material(s) are used to manufacture your bedding and pillow? s ynthetic,natural fiber (e.g. cotton) What is the age of your pillow (years)? 1 What material are your bedding items made of? s ynthetic,natural fiber (e.g. cotton) Do you sleep with quilts or blankets or a duvet? Y es What material? s ynthetic,natural fiber (e.g. cotton) T obacco Control (Standard) Tobacco use: N onsmoker * Medications: T akingSIT (TRADITIONAL) variable see record per schedule SC per schedule Ipratropium Clayton 21 MCG/INH SPRAY 2 SPRAY(S) INTRANASALLY 3 [...] 1 tab(s) orally once a day Ipratropium Clayton 0.03 % Solution 2 sprays in each nostril Nasally Twice a day EPINEPHrine 0.3 MG/0.3ML Solution Auto-injector as directed Injection as needed Dispense 1 kit (2 pack)Taking SIT (TRADITIONAL) variable see record per schedule SC per schedule Taking Ipratropium Clayton 21 MCG/INH SPRAY 2 SPRAY(S) INTRANASALLY 3 TIMES A DAY , Notes to Pharmacist: *Please review and pick correct strength-formulation from [employer] options. If intended option is not shown, [...] tab(s) orally once a day Taking Ipratropium Clayton 0.03 % Solution 2 sprays in each nostril Nasally Twice a day Taking EPINEPHrine 0.3 MG/0.3ML Solution Auto-injector as directed Injection as needed Dispense 1 kit (2 pack)Not- Taking/PRNhydroCHLOROthiazide 12.5 MG Tablet 1 tab(s) orally once a day Ipratropium Clayton 21 MCG/INH SPRAY 2 SPRAY(S) INTRANASALLY 3 TIMES A DAY , Notes to Pharmacist: *Please review and pick correct strength-formulation from [employer] options. If intended option is not shown, [...] tab(s) orally once a day Not-Taking/PRN Ipratropium Clayton 21 MCG/INH SPRAY 2 SPRAY(S) INTRANASALLY 3 TIMES A DAY , Notes to Pharmacist: *Please review and pick correct strength-formulation from [employer] options. If intended option is not shown, [...] replacement for e-prescription and drug interaction check* * Allergies: N .K.D.A.no[Allergies Verified] Objective: * Vitals: * Examination: G eneral examination: General appearance: p leasant, well-developed, well-nourished. HEENT: c onjunctiva are clear bilaterally, no tenderness to palpation of the sinuses, TM's without evidence of acute infection, turbinates with pink mucosa, clear rhinorrhea is present, no polyps noted, no septal perforation, posterior oropharynx is clear, no exudates, no tongue swelling, and uvula is midline. Oral cavity: n ormal, no lesions. Neck, thyroid : s upple, non-tender, no anterior cervical lymphadenopathy. Breasts : n ot performed. Heart: R RR, S1-S2, no murmurs, no rubs, no gallops. Lungs: c lear to auscultation and percussion in all lung cuevas, no wheezes or crackles. Neurologic exam: u nremarkable. Skin: e rythema about 1 centimeter in size on left upper cheek, no pain with pressing on area. Peripheral pulses: n ormal (2+) bilaterally. Back: n ormal. Extremities: n ormal ROM, no clubbing, no cyanosis, no edema. Genitalia: n ot performed. Assessment: * Assessment: 1. D ermatitis, unspecified - L30.9 (Primary) 2 . A llergic rhinitis due to pollen - J30.1 3 . A llergic contact dermatitis due to other agents - L23.89? 4. A llergy to other foods - Z91.018 5 . A llergic rhinitis due to animal (cat) (dog) hair and dander - J30.81 6 . O ther allergic rhinitis - J30.89 7 . O ther chronic allergic conjunctivitis - H10.45 Plan: * Treatment: 2. A llergic rhinitis due to pollen Refill Ipratropium Clayton Solution, 0.03 %, 2 sprays in each nostril, Nasally, Twice a day, 30 days, 1, Refills 11; R efill EPINEPHrine Solution Auto-injector, 0.3 MG/0.3ML, as directed, Injection, as needed, 30 days, 1, Refills 0. Notes: Pauline clearly suffers from atopic disease based upon our skin testing and clinical history. Accordingly, we have introduced a new, aggressive medication regimen, discussed nasal washes and allergy-specific avoidance measures. She is tolerating SCIT without large local or systemic symptoms. She was instructed to carry her epinephrine autoinjector for 2 hours after leaving the office.. 3. A llergic contact dermatitis due to other agents Notes: prior rash appears secondary to compression stocking or may be due to sweating while wearing the compression stockings. Itching has resolved with changing soaps and household products. Consider patch testing in the future if needed. 4. A llergy to other foods Notes: May have sensitivity to sulfites which is causing rhinitis with processed food. Pauline was instructed to continue keeping a diary of restaurants and food eaten when symptoms occur. She does not appear to have an immediate IgE mediated reaction to food 5. O ther chronic allergic conjunctivitis Notes: Given ocular signs and symptoms I encouraged allergy avoidance measures and meds as above. If symptoms persist, consider adding additional medications including intraocular antihistamine/mast cell stabilizer, PRN * Procedure Codes: G 8427 DOC MEDS VERIFIED W/PT OR RE 798577 IMMUNOTHERAPY [id number] BMI<30 AND >=22 CALC & [id number] PREHTN/HTN BP DOC INDCD F/U DOC * Preventive Medicine: Counseling: D iet a s tolerated. E xercise C ontinue activity as usual. M edication instruction: W atch for side effects of prescribed medications, Nasal steroid/antihistamine instruction: avoid septum. E ducation: G ENERAL EDUCATION: Our staff spent an additional 30 minutes in direct contact with the patient educating them on their current diagnoses and proper treatment and prevention of symptoms and the proper use of medications. E ducation 2: A RC EDUCATION: Our staff discussed the appropriate allergen avoidance measures and medication utilization including upper airway hygiene with daily nasal washes given the patient's clinical status and diagnoses. SCIT EDUCATION: Discussed allergy immunotherapy including the relative risks, benefits and alternatives to this treatment as an adjunctive measure to current therapy, Allergy Immunotherapy: Risks: bleeding, infection, allergic reaction, anaphylaxis = severe allergic reaction that can cause ; Benefits: reduced need for medications, improved symptoms, disease modification. Alternatives: watch/wait, change medication regimen, improve allergy avoidance measures, Our staff discussed the warning signs of anaphylaxis and the indications to use self-injectable epinephrine and seek urgent or emergent care. P atient education material sent to portal? Y es C are goal follow up plan BMI management provided Y es Above Normal BMI Follow-up W eight monitoring B P Management: PRE-HYPERTENSIVE FOLLOW-UP PLAN: P atient follow-up planned and scheduled LIFESTYLE RECOMMENDATION: H ypertension education FIRST HYPERTENSIVE BP READING FOLLOW-UP PLAN: F ollow-up 1 month REFERRAL TO ALTERNATIVE / PRIMARY CARE PROVIDER: Saran feng to general practitioner * Follow Up: 6 Months (Reason: Evaluation and Management) * Billing Information: * Visit Code: 42699 Office Visit, Est Pt., Level 4. * Procedure Codes: G8427 DOC MEDS VERIFIED W/PT OR RE, 1. 51467 IMMUNOTHERAPY INJECTIONS. G8420 BMI<30 AND >=22 CALC & DOCU. G8950 PREHTN/HTN BP DOC INDCD F/U DOC. * RT FIREMAN Sign off status: Completed true * Provider: Lamar Reed MD Date: 0 09/12/2024 Generated for Homari yodit/Clarita/eTransmitting on: 0 12/05/2024 01:09 PM CDT History and Physical Notes * HPI (History of Present Illness) Category Sub-Category Detail Notes Category Not es *Introduction I had the pleasure o f seeing Pauline Young, a 68 year old with type 1 diabetes, ARC on SCIT presenting for urgent evaluation of dermatitis. She is alone for today's visit. She was last evaluated 08-16-2024. She woke up in am with redness below her left eye and painful when she pushes on the area. No fever or recent illnesses. No other rash or symptoms. She reports diabetes is under good control. No changes in vision. Improvement in congestion and rhinorrhea with immunotherapy. She continues Xyzal and prn Ipratropium. She is tolerating immunotherapy well denies any large local or systemic symptoms with immunotherapy, Changes in barometric pressure cause facial pressure and congestion. No decrease in sense of smell. Spending time outside causes eye itching and watering. No interval sinusitis. She uses a wood burning stove in the winter. Pauline has a history of food intolerances. She reports frequent congestion, rhinorrhea and cough which occur when eating out at restaurants but also occasionally at home. Appears related to preservatives. Above symptoms last about 30 minutes. Above symptoms always occur while eating various food at [employer]. She has similar reaction with Macaroni & Cheese and Salad from a Pizza restaurant. She tolerates fresh lettuce, but bagged lettuce causes rhinitis symptoms. She has type 1 diabetes which is under good control per her report and follows at [facility]. Today, she reports no fevers, chills, night sweats or other constitutional symptoms Examination Category Sub-Category Detail Notes Category Not es General examination HEENT: conjunctiva are clear bilaterally, no tenderness to palpation of the sinuses, TM's without evidence of acute infection, turbinates with pink mucosa, clear rhinorrhea is present, no polyps noted, no septal perforation, posterior oropharynx is clear, no exudates, no tongue swelling, and uvula is midline Neck, thyroid : supple, non-tender, no anterior cervical lymphadenopathy Heart: RRR, S1-S2, no murmu rs, no rubs, no gallops Lungs: clear to auscultatio n and percussion in all lung cueavs, no wheezes or crackles Abdomen: Extremities: normal ROM, no clubb ing, no cyanosis, no edema General appearance: pleasant, well-devel oped, well-nourished Skin: erythema about 1 francois timeter in size on left upper cheek, no pain with pressing on area Neurologic exam: unremarkable Oral cavity: normal, no lesions Breasts : not performed Peripheral pulses: normal (2+) bilatera lly Back: normal Genitalia: not performed
--- OUTSIDE RECORDS SUMMARY | 2024-12-05 13:10 | XMS_ITS | Encounter Summary ---
Author Organization [facility] Healthcare Address [address] [place] [address] Care Team Providers Care Senior Hardware Engineer Name Role Phone Amador Huber MD Primary Care Provider [phone] Encounter Details Date Type Department Care Team (Late st Contact Info) Description 10/21/2023 Telephone [facility] [address] [facility] [address] [place] [id number] Alba Atkinson, VIVIANA Social History Tobacco Use Types Packs/Day Years Used Date Smoking Tobacco: Never PHQ-2 Answer Date Recorded PHQ-2 Total Score (If total score is 3 or more points, staff should administer the PHQ-9) 0 10/29/2020 Personal Safety Answer Date Recorded Have you ever been in or are you currently in a harmful physical or emotional relationship or is someone making you feel afraid or unsafe? 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
--- OUTSIDE RECORDS SUMMARY | 2024-12-05 13:10 | XMS_ITS | Patient Health Record ---
Author Organization [facility], Later [facility] ([address]) Address [address] [place] [address] Care Team Providers Care Applications Administrator Name Role Phone Mayo Amador Primary Care Provider UnavailEnedina Quinonez Unavailable [phone] [facility], Provider Unavailable Unavailab le Allergies No Known Allergies Reason For Referral No Information Medications Medication SIG (Take, Route, Frequency, Duration) Notes Start Date End Date Status Multivitamin - 1 tab(s) orally once a day Active Xyzal Allergy 24HR 5 MG 1 tab(s) orally once a day (in the evening) for 30 day(s) Not-Taking Atorvastatin Calcium 40 MG 1 tab(s) orally once a day Active NOVOLOG 100 UNITS/ML SUBCUTANEOUS SOLUTION INSULIN PUMP *Please review for potential replacement for e-prescription and drug interaction check* Not-Taking Ibuprofen 200 MG 1 tab(s) orally every 6 hours Active NOVOLOG 100 UNITS/ML SUBCUTANEOUS SOLUTION INSULIN PUMP *Please review for potential replacement for e-prescription and drug interaction check* Not-Taking Calcium Carbonate Antacid 1000 MG 2 tab(s) chewed Qday Active OPCON-A OPHTHALMIC SOLUTION 1-2 GTTS IN AFFECTED EYE(S) PRN, MAX: 4X/DAY *Please review for potential replacement for e-prescription and drug interaction check* Not-Taking hydroCHLOROthiazide 12.5 MG 1 tab(s) orally once a day for 30 day(s) Not-Taking Lisinopril-hydroCHLOROth iazide 10-12.5 MG 1 tab(s) orally once a day Active OPCON-A OPHTHALMIC SOLUTION 1-2 GTTS IN AFFECTED EYE(S) PRN, MAX: 4X/DAY *Please review for potential replacement for e-prescription and drug interaction check* Not-Taking amLODIPine Besylate 10 MG 1 tab(s) orally once a day Active Ipratropium Bassett 0.03 % 2 sprays in each nostril Nasally Twice a day for 30 days Active EPINEPHrine 0.3 MG/0.3ML as directed Injection as needed for 30 days Active Ipratropium Bassett 21 MCG/INH 2 SPRAY(S) INTRANASALLY 3 TIMES A DAY for 30 DAY(S) *Please review and pick correct strength-formul ation from [employer] options. If intended option is not shown, discontinue and re-order from Quick Search* Active EPINEPHRINE AUTO-INJECTOR 0.3 mg as directed intramuscularly once for 30 day(s) Not-Taking Magnesium Oxide 250 MG 1 cap(s) orally once a day Active Vitamin D3 125 MCG (5000 UT) as directed orally once a day Not-Taking Ipratropium Bassett 21 MCG/INH 2 SPRAY(S) INTRANASALLY 3 TIMES A DAY for 90 DAYS *Please review and pick correct strength-formul ation from [employer] options. If intended option is not shown, discontinue and re-order from Quick Search* Not-Taking SIT (TRADITIONAL) variable per schedule SC per schedule for to be determined Active IPRATROPIUM BROMIDE NASAL 21 mcg/inh 2 spray(s) intranasally 3 times a day for 30 day(s) Not-Taking Immunizations Vaccine Route Administration Date Status Comme nts Covid 19 (Pfizer) Unknown 11/11/2020 Administered Covid 19 (Pfizer) Unknown 12/02/2020 Administered FLUZONE High-Dose Quadrivalent Unknown 04/20/2020 Admin istered Social History Tobacco Use: Social History Observation Description Date Details (start date - stop date) Never Smoker NA - NA Tobacco Control (Standard) Question Answer Notes Tobacco use: Nonsmoker Problems Problem Type SNOMED Code ICD Code Onset Dates Problem Status W/U Status Risk Notes Problem Diabetes mellitus without complication (517258809) Other specified diabetes mellitus without complications (E13.9) Active confirmed Problem Hyperlipidemia (98757128) Hyperlipidemia, unspecified (E78.5) Active confirmed Problem Sleep apnea (34737376) Sleep apnea, unspecified (G47.30) Active confirmed Problem Chronic allergic conjunctivitis (88643988) Other chronic allergic conjunctivitis (H10.45) Active confirmed Problem Essential hypertension (04832986) Essential (primary) hypertension (I10) Active confirmed Problem Allergic rhinitis caused by pollen (disorder) (56191358) Allergic rhinitis due to pollen (J30.1) Active confirmed Problem Allergic rhinitis caused by animal hair and dander (381179632393535) Allergic rhinitis due to animal (cat) (dog) hair and dander (J30.81) Active confirmed Problem Allergic rhinitis (29020185) Other allergic rhinitis (J30.89) Active confirmed Problem Cellulitis of left upper limb (7911049817748580 8) Cellulitis of left upper limb (L03.114) Active confirmed Problem Food allergy (277568130) Allergy to other foods (Z91.018) Active confirmed Problem Allergic rhinitis caused by pollen (disorder) (64298523) Allergic rhinitis due to pollen (J30.1) Active confirmed Problem Allergic rhinitis caused by animal hair and dander (852914629086247) Allergic rhinitis due to animal (cat) (dog) hair and dander (J30.81) Active confirmed Problem Allergic rhinitis (92789275) Other allergic rhinitis (J30.89) Active confirmed Problem Chronic allergic conjunctivitis (14845605) Other chronic allergic conjunctivitis (H10.45) Active confirmed Vital Signs Oximetry 98 % 08/15/2024 Blood pressure diastolic 66 mm Hg 08/15/2024 Height 61.6 in 08/15/2024 Blood pressure systolic 153 mm Hg 08/15/2024 Weight 143.4 lbs 08/15/2024 BMI 26.57 kg/m2 08/15/2024 Encounters Encounter Location Date Provider Diagnosis [address] [phone] 01/15/2024 Provider [facility] Allergic rhinitis due to pollen J30.1 [facility] [address] [place] [phone] 12/22/2023 Enedina Reed Allergic rhinitis du e to pollen J30.1 ; Other allergic rhinitis J30.89 and Other chronic allergic conjunctivitis H10.45 [facility] [address] [place] [phone] 02/01/2024 Enedina Derek Allergic rhinitis du e to pollen J30.1 ; Other allergic rhinitis J30.89 and Other chronic allergic conjunctivitis H10.45 [facility] [address] [place] [phone] 02/08/2024 Enedina Derek Allergic rhinitis du e to pollen J30.1 ; Allergic contact dermatitis due to other agents L23.89 ; Allergy to other foods Z91.018 ; Allergic rhinitis due to animal (cat) (dog) hair and dander J30.81 ; Other allergic rhinitis J30.89 and Other chronic allergic conjunctivitis H10.45 [facility] [address] [place] [phone] 02/15/2024 Enedina Derek Allergic rhinitis du e to pollen J30.1 ; Other allergic rhinitis J30.89 and Other chronic allergic conjunctivitis H10.45 [facility] [address] [place], [place] [address] [address] [place] [phone] 03/14/2024 Enedinakady Elisem Allergic rhinitis du e to pollen J30.1 ; Other allergic rhinitis J30.89 and Other chronic allergic conjunctivitis H10.45 [facility] [address] [place], [place] [address] [address] [place] [phone] 04/20/2024 Enedinakady Elisem Allergic rhinitis du e to pollen J30.1 ; Other allergic rhinitis J30.89 and Other chronic allergic conjunctivitis H10.45 [facility] [address] [place], [place] [address] [address] [place] [phone] 05/18/2024 Enedina Derek Allergic rhinitis du e to pollen J30.1 ; Other allergic rhinitis J30.89 and Other chronic allergic conjunctivitis H10.45 [facility] [employer] [address] [place] [phone] 06/21/2024 Enedina Derek Allergic rhinitis du e to pollen J30.1 ; Other allergic rhinitis J30.89 and Other chronic allergic conjunctivitis H10.45 [facility] [employer] [address] [place] [phone] 07/19/2024 Enedina Derek Allergic rhinitis du e to pollen J30.1 ; Other allergic rhinitis J30.89 and Other chronic allergic conjunctivitis H10.45 [facility] [address] [place] [phone] 08/15/2024 Enedina Reed Allergic rhinitis du e to pollen J30.1 ; Allergic contact dermatitis due to other agents L23.89 ; Allergy to other foods Z91.018 ; Allergic rhinitis due to animal (cat) (dog) hair and dander J30.81 ; Other allergic rhinitis J30.89 and Other chronic allergic conjunctivitis H10.45 [facility] [address] [place] [phone] 09/12/2024 Enedina Reed Allergic rhinitis du e to pollen J30.1 ; Dermatitis, unspecified L30.9 ; Allergic contact dermatitis due to other agents L23.89 ; Allergy to other foods Z91.018 ; Allergic rhinitis due to animal (cat) (dog) hair and dander J30.81 ; Other allergic rhinitis J30.89 and Other chronic allergic conjunctivitis H10.45 [facility] [address] [place] [phone] 10/03/2024 Enedina Reed Allergic rhinitis du e to pollen J30.1 ; Other allergic rhinitis J30.89 and Other chronic allergic conjunctivitis H10.45 [facility] [address] [place] [phone] 11/07/2024 Enedina Reed Allergic rhinitis du e to pollen J30.1 ; Other allergic rhinitis J30.89 and Other chronic allergic conjunctivitis H10.[address] [phone] 08/13/2024 Enedina Reed [facility] [address] [place] [phone] 08/17/2024 Enedina Reed Allergic rhinitis du e to pollen J30.1 Assessments Encounter Date Diagnosis (ICD Code) Assessment Notes Treatment Notes Treatment Clinical Notes Section Notes 12/22/2023 Allergic rhinitis due to pollen (ICD-10 - J30.1) 01/15/2024 Allergic rhinitis due to pollen (ICD-10 - J30.1) 02/01/2024 Allergic rhinitis due to pollen (ICD-10 - J30.1) 02/08/2024 Allergic contact dermatitis due to other agents (ICD-10 - L23.89) rash appears secondary to compression stocking or may be due to sweating while wearing the compression stockings. We discussed patch testing or trying out different pairs of stockings. 02/08/2024 Allergic rhinitis due to pollen (ICD-10 - J30.1) Pauline clearly suffers from atopic disease based upon our skin testing and clinical history. Accordingly, we have introduced a new, aggressive medication regimen, discussed nasal washes and allergy-specific avoidance measures. She is tolerating SCIT without large local or systemic symptoms. She was instructed to carry her epinephrine autoinjector for 2 hours after leaving the office.. 02/15/2024 Allergic rhinitis due to pollen (ICD-10 - J30.1) 03/14/2024 Allergic rhinitis due to pollen (ICD-10 - J30.1) 04/20/2024 Allergic rhinitis due to pollen (ICD-10 - J30.1) 05/18/2024 Allergic rhinitis due to pollen (ICD-10 - J30.1) 06/21/2024 Allergic rhinitis due to pollen (ICD-10 - J30.1) 07/19/2024 Allergic rhinitis due to pollen (ICD-10 - J30.1) 08/15/2024 Allergic rhinitis due to pollen (ICD-10 - J30.1) Pauline clearly suffers from atopic disease based upon our skin testing and clinical history. Accordingly, we have introduced a new, aggressive medication regimen, discussed nasal washes and allergy-specific avoidance measures. She is tolerating SCIT without large local or systemic symptoms. She was instructed to carry her epinephrine autoinjector for 2 hours after leaving the office.. 08/15/2024 Allergic contact dermatitis due to other agents (ICD-10 - L23.89) prior rash appears secondary to compression stocking or may be due to sweating while wearing the compression stockings. Itching has resolved with changing soaps and household products. We discussed patch testing in the future if needed. 08/17/2024 Allergic rhinitis due to pollen (ICD-10 - J30.1) 09/12/2024 Allergic rhinitis due to pollen (ICD-10 [...] larger in size recommend evaluation by PCP. 10/03/2024 Allergic rhinitis due to pollen (ICD-10 - J30.1) 11/07/2024 Allergic rhinitis due to pollen (ICD-10 - J30.1) 11/07/2024 Other allergic rhinitis (ICD-10 - J30.89) 10/03/2024 Other allergic rhinitis (ICD-10 - J30.89) 09/12/2024 Allergic contact dermatitis due to other agents (ICD-10 - L23.89) prior rash appears secondary to compression stocking or may be due to sweating while wearing the compression stockings. Itching has resolved with changing soaps and household products. Consider patch testing in the future if needed. 08/15/2024 Allergy to other foods (ICD-10 - Z91.018) May have sensitivity to sulfites which is causing rhinitis with processed food. Pauline was instructed to continue keeping a diary of restaurants and food eaten when symptoms occur. She does not appear to have an immediate IgE mediated reaction to food 07/19/2024 Other allergic rhinitis (ICD-10 - J30.89) 06/21/2024 Other allergic rhinitis (ICD-10 - J30.89) 05/18/2024 Other allergic rhinitis (ICD-10 - J30.89) 04/20/2024 Other allergic rhinitis (ICD-10 - J30.89) 03/14/2024 Other allergic rhinitis (ICD-10 - J30.89) 02/15/2024 Other allergic rhinitis (ICD-10 - J30.89) 02/08/2024 Allergy to other foods (ICD-10 - Z91.018) May have sensitivity to sulfites which is causing rhinitis with processed food. Pauline was instructed to continue keeping a diary of restaurants and food eaten when symptoms. She does not appear to have an immediate IgE mediated reaction to food 02/01/2024 Other allergic rhinitis (ICD-10 - J30.89) 12/22/2023 Other allergic rhinitis (ICD-10 - J30.89) 12/22/2023 Other chronic allergic conjunctivitis (ICD-10 - H10.45) 02/01/2024 Other chronic allergic conjunctivitis (ICD-10 - H10.45) 02/08/2024 Allergic rhinitis due to animal (cat) (dog) hair and dander (ICD-10 - J30.81) Follow allergen avoidance, meds and continue SCIT as an adjunctive treatment to current regimen 02/15/2024 Other chronic allergic conjunctivitis (ICD-10 - H10.45) 03/14/2024 Other chronic allergic conjunctivitis (ICD-10 - H10.45) 04/20/2024 Other chronic allergic conjunctivitis (ICD-10 - H10.45) 05/18/2024 Other chronic allergic conjunctivitis (ICD-10 - H10.45) 06/21/2024 Other chronic allergic conjunctivitis (ICD-10 - H10.45) 07/19/2024 Other chronic allergic conjunctivitis (ICD-10 - H10.45) 08/15/2024 Allergic rhinitis due to animal (cat) (dog) hair and dander (ICD-10 - J30.81) Follow allergen avoidance, meds and continue SCIT as an adjunctive treatment to current regimen 09/12/2024 Allergy to other foods (ICD-10 - Z91.018) May have sensitivity to sulfites which is causing rhinitis with processed food. Pauline was instructed to continue keeping a diary of restaurants and food eaten when symptoms occur. She does not appear to have an immediate IgE mediated reaction to food 11/07/2024 Other chronic allergic conjunctivitis (ICD-10 - H10.45) 10/03/2024 Other chronic allergic conjunctivitis (ICD-10 - H10.45) 09/12/2024 Allergic rhinitis due to animal (cat) (dog) hair and dander (ICD-10 - J30.81) 08/15/2024 Other allergic rhinitis (ICD-10 - J30.89) 02/08/2024 Other allergic rhinitis (ICD-10 - J30.89) 02/08/2024 Other chronic allergic conjunctivitis (ICD-10 - H10.45) Given ocular signs and symptoms I encouraged allergy avoidance measures and meds as above. If symptoms persist, consider adding additional medications including intraocular antihistamine/ma st cell stabilizer, PRN 08/15/2024 Other chronic allergic conjunctivitis (ICD-10 - H10.45) Given ocular signs and symptoms I encouraged allergy avoidance measures and meds as above. If symptoms persist, consider adding additional medications including intraocular antihistamine/ma st cell stabilizer, PRN 09/12/2024 Other allergic rhinitis (ICD-10 - J30.89) 09/12/2024 Other chronic allergic conjunctivitis (ICD-10 - H10.45) Given ocular signs and symptoms I encouraged allergy avoidance measures and meds as above. If symptoms persist, consider adding additional medications including intraocular antihistamine/ma st cell stabilizer, PRN 02/08/2024 Other 08/15/2024 Other 09/12/2024 Other Plan Of Treatment Next Appt Details Provider Name:Enedina wu, 12/07/2024 10:30:00 AM, [address] [facility], [address], [address], Insurance Providers Payer Name Payer Address Payer Phone Subscriber Number Group Number Insured Name Patient Relationship to Insured Coverage Start Date Coverage End Date [employer] (Medicare) Attention Claims [address] [place] [address] [id number] Pauline Kmuar Self - [place] [address] [id number] Pauline Kumar Self - patient is the insured Medical (General) History Medical History History ICD Code Other specified diabetes mellitus withou t complications E13.9 Hyperlipidemia, unspecified E78.5 Essential (primary) hypertension I10 Sleep apnea, unspecified G47.30 Surgical History Surgery Date(Month/Year) Appendectomy 1954 06/24/1974 04/11/1980 Hysterectomy 10/30/1992 Trigger Finger Release 01/20/2021 Cholecystectomy 02/09/2020 knee replacement 08/2023 Hospitalization History Reason Date(Month/Year) Covid
--- OUTSIDE RECORDS SUMMARY | 2024-12-05 13:10 | XMS_ITS | Clinical Summary ---
Author Organization [facility] Address [address] [place] [address] Care Team Providers Care Enrollment Management Manager Name Role Phone Ludin Aguiar MD Primary Care Provider [phone] Source Comments [facility],non-[facility] Affiliates and Associated Physician Practices is amultiple site organization consisting of ambulatory clinics and hospital sitesin [place], [place], [place] and [place]. This disclosure is being madepursuant to the Care Everywhere program and may not contain all information available regarding this patient. Last updated 18.[facility] Social History Tobacco Use Types Packs/Day Years Used Date Smoking Tobacco: Never Assessed Comments Unknown Sex and Gender Information Value Date Recorded Sex Assigned at Not on file Legal Sex Female 3:03 PM CDT Gender Identity Not on file Sexual Orientation Not on file Plan of Treatment Health Maintenance Due Date Last Done Comments BONE DENSITY TESTING 1955 COLOGUARD (AGES 45-75) - COL ON CA SCREENING 1954 COLON MONITORING 1954 COLONOSCOPY - COLON CA SCREENING 1954 CT COLONOGRAPHY - COLON CA SCREENING 1954 Colorectal Cancer Screening 1954 FIT - COLON CA SCREENING 1954 FLEX SIG - COLON CA SCREENING 1954 LIPID TESTING 1954 MAMMOGRAM 1954 HEPATITIS C SCREENING 11/10/1972 DTAP/TDAP/TD VACCINES (1 - Tdap) 1973 PNEUMOCOCCAL VACCINE 50+ (1 of 1 - PCV) 2004 ZOSTER VACCINE (1 of 2) 2004 COVID-19 VACCINE (2023-2 5 season) 2024 DEPRESSION SCREENING 08/02/2024 INFLUENZA VACCINE (Season Ended) 2025 Respiratory Syncytial Virus (RSV) Vaccine Pt: or over 60 yrs (1 - 1-dose 75+ series) 2029 HEPATITIS B VACCINE Aged Out No longe r eligible based on patient's age to complete this topic HIB VACCINE Aged Out No longer eligi ble based on patient's age to complete this topic HPV VACCINE Aged Out No longer eligi ble based on patient's age to complete this topic MENINGOCOCCAL (Group B) VACC INE SHARED DECISION-MAKING Aged Out No longer eligibl e based on patient's age to complete this topic MENINGOCOCCAL GROUPS A/C/Y/W VACCINE Aged Out No longer eligible b ased on patient's age to complete this topic Insurance MEDICARE Care Teams Enrollment Management Manager Relationship Specialty Start Date End Date Ludin Aguiar MD [address] [place] [phone] PCP - General Internal Medicine 11/09/16
--- OUTSIDE RECORDS SUMMARY | 2024-12-05 13:10 | XMS_ITS ---
Author Organization [facility] [employer] ([address]) Address [address] [place] [address] Care Team Providers Care [employer] Name Role Phone Mayo Amador Primary Care Provider Unavailabl e Enedina Reed Unavailable [phone] REASON FOR VISIT SCIT - Traditional Schedule Allergy immunotherapy Medications Medication SIG (Take, Route, Frequency, Duration) Notes Start Date End Date Status Vitamin D3 125 MCG (5000 UT) as directed orally once a day Not-Taking NOVOLOG 100 UNITS/ML SUBCUTANEOUS SOLUTION INSULIN PUMP *Please review for potential replacement for e-prescription and drug interaction check* Not-Taking EPINEPHRINE AUTO-INJECTOR 0.3 mg as directed intramuscularly once for 30 day(s) Not-Taking Ipratropium [place] 21 MCG/INH 2 SPRAY(S) INTRANASALLY 3 TIMES A DAY for 90 DAYS *Please review and pick correct strength-formul ation from Oncimmune options. If intended option is not shown, discontinue and re-order from Quick Search* Not-Taking IPRATROPIUM BROMIDE NASAL 21 mcg/inh 2 spray(s) intranasally 3 times a day for 30 day(s) Not-Taking Atorvastatin Calcium 40 MG 1 tab(s) orally once a day Active Lisinopril-hydroCHLOROth iazide 10-12.5 MG 1 tab(s) orally once a day Active Multivitamin - 1 tab(s) orally once a day Active amLODIPine Besylate 10 MG 1 tab(s) orally once a day Active hydroCHLOROthiazide 12.5 MG 1 tab(s) orally once a day for 30 day(s) Not-Taking Ipratropium [place] 21 MCG/INH 2 SPRAY(S) INTRANASALLY 3 TIMES A DAY for 30 DAY(S) *Please review and pick correct strength-formul ation from Oncimmune options. If intended option is not shown, discontinue and re-order from Quick Search* Active Magnesium Oxide 250 MG 1 cap(s) orally once a day Active Ibuprofen 200 MG 1 tab(s) orally every 6 hours Active Calcium Carbonate Antacid 1000 MG 2 tab(s) chewed Qday Active SIT (TRADITIONAL) variable per schedule SC [...] (in the evening) for 30 day(s) Not-Taking Ipratropium [place] 0.03 % 2 sprays in each nostril Nasally Twice a day for 30 days Active EPINEPHrine 0.3 MG/0.3ML as directed Injection as needed for 30 days Active OPCON-A OPHTHALMIC SOLUTION 1-2 GTTS IN AFFECTED EYE(S) PRN, MAX: 4X/DAY *Please review for potential replacement for e-prescription and drug interaction check* Not-Taking Encounters Encounter Location Date Provider Diagnosis [facility] [address] [address] 10/03/2024 Enedina Reed Allergic rhinitis du e to pollen J30.1 ; Other allergic rhinitis J30.89 and Other chronic allergic conjunctivitis H10.45 Assessments Encounter Date Diagnosis (ICD Code) Assessment Notes Treatment Notes Treatment Clinical Notes Section Notes 10/03/2024 Allergic rhinitis due to pollen (ICD-10 - J30.1) 10/03/2024 Other allergic rhinitis (ICD-10 - J30.89) 10/03/2024 Other chronic allergic conjunctivitis (ICD-10 - H10.45) Plan Of Treatment Medication Medication Name Sig Start Date Stop Date Notes SIT (TRADITIONAL) variable per schedule SC per schedule for to be determined Next Appt Details Follow Up: 1 Week, Reason: Provider Name:Enedina JanEmerald wu, 12/07/2024 10:30:00 AM, [address] [facility], [address], [place], [address], Progress Notes * Pauline YOUNGDOB: [birth year] (68 yo F)Acc No.[id number]:10/03/2024 SCIT-Aeroallergen Patient: Pauline PITTMAN Provider: Lamar Reed MD :[id number] A ge:68 Y S ex:Female Date:10/03/2024 Address:[address] [facility] Pcp:Amador Huber Subjective: * Chief Complaints: * [...] record per schedule SC per schedule Ipratropium [place] 21 MCG/INH SPRAY 2 SPRAY(S) INTRANASALLY 3 [...] 1 tab(s) orally once a day Ipratropium [place] 0.03 % Solution 2 sprays in each nostril Nasally Twice a day EPINEPHrine 0.3 MG/0.3ML Solution Auto-injector as directed Injection as needed Taking SIT (TRADITIONAL) variable see record per schedule SC per schedule Taking Ipratropium [place] 21 MCG/INH SPRAY 2 SPRAY(S) INTRANASALLY 3 TIMES A DAY , Notes to Pharmacist: *Please review and pick correct strength-formulation from Oncimmune options. If intended option is not shown, [...] tab(s) orally once a day Taking Ipratropium [place] 0.03 % Solution 2 sprays in each nostril Nasally Twice a day Taking EPINEPHrine 0.3 MG/0.3ML Solution Auto-injector as directed Injection as needed Not-Taking/PRNhydroCHLOROthiazide 12.5 MG Tablet 1 tab(s) orally once a day Ipratropium [place] 21 MCG/INH SPRAY 2 SPRAY(S) INTRANASALLY 3 TIMES A DAY , Notes to Pharmacist: *Please review and pick correct strength-formulation from Oncimmune options. If intended option is not shown, [...] tab(s) orally once a day Not-Taking/PRN Ipratropium [place] 21 MCG/INH SPRAY 2 SPRAY(S) INTRANASALLY 3 TIMES A DAY , Notes to Pharmacist: *Please review and pick correct strength-formulation from Oncimmune options. If intended option is not shown, [...] Information: * Visit Code: * Procedure Codes: 72146 IMMUNOTHERAPY INJECTIONS. * SIFIED AD TAKER Sign off status: Completed true * Provider: Lamar Reed MD Date: 0 10/03/2024 Generated for Bhavani monsivais/Clarita/Rogerransmitting on: 0 12/05/2024 01:09 PM CDT History [...]
== END 2024-12-05 12:54 | disposition home or self-care (01) ==
PROVIDERS: PCP Family Medicine; Visit Provider Nurse Practitioner Family
DX: M47.816 Spondylosis without myelopathy or radiculopathy, lumbar region (principal); M43.12 Spondylolisthesis, cervical region; M47.812 Spondylosis without myelopathy or radiculopathy, cervical region
CPT/HCPCS: 72040; 72100; 72141; 72148

== ENCOUNTER 2025-05-08 14:38 | Outpatient (RCR) | payer MEDICARE, OTHER, SELFPAY ==
--- NOTE | 2025-05-08 15:34 | OTOPEVDC ---
Assessment and note entered by Blayne Pro, OTR/L, CHT Thank you for referring Pauline Young to [facility].? An evaluation has been completed. No further treatment is needed. Evaluation Information Assessment Status Evaluation Diagnosis Pain in right hand ICD-10 Condition Codes (OT) Pain in right hand M79.641 Subjective Information Patient presents with right thumb pain. 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 She brings in her thumb spica from last time. She reports that since her thumb flair up a month ago she has been resting it and using ice and this has helped. She reports she is back to cooking and using a knife with little to no pain now. Some residual aching at the end of the day, but over all she is doing better from a month ago when she got her OT order. She reports she would like to revisit the HEP. Assessment OT Clinical Summary Patient referred to OT with right thumb pain consistent with 1st [facility] OA. She has completed therapy at our clinic previously and brings in her thumb spica splint from last time. The splint continues to have a great fit, just needing new straps. Reviewed home program for managing pain - active ROM and use of heat and ice PRN. Reviewed HEP for when she is pain free - wrist and internet project manager/ pinch strengthening. Patient reports reduced pain in her thumb over the past month. She declines further follow up at this time. She reports the HEP review was exactly what she needed. Discharging OT at this time with patient independent with all materials. Plan of Care OT Services Indicated No
== END 2025-05-09 15:07 | disposition home or self-care (01) ==
LOC: ANHGOSHOT 14:38
PROVIDERS: PCP Family Medicine; Visit Provider Nurse Practitioner Family
DX: M79.641 Pain in right hand (principal)
CPT/HCPCS: 97018; 97110